=== PATIENT | female | born 1955 | race Caucasian/White ===

== ENCOUNTER 2016-12-05 15:56 | Inpatient (IN) | payer MEDICARE, OTHER ==
[~2016-12-05] VITALS: Ht 160 cm; Wt 110.8 kg
[~2016-12-05 15:56] MED LIST: ACET650T2 PO; ALDA25TA2 PO; ALLO100T PO; AMIT25TA PO; AMIT25TA2 PO; ASPI1TAB PO; BEANTAB2 PO; CALCTAB23 PO; CAPT62TA PO; CARV6.25 PO; CHLO4TAB2 PO; COLA100C3 PO; COSO1SOL2 OU; COSO1SOL3 OU; COSOPT OU; CRES20TA PO; CYCL10TA PO; DEMA100T; DICL500C; DICL500C PO; DRIS50002 PO; FERR325T OR; FERR325T3 PO; FISH1000; FISH1000 OR; FISH100049 PO; FURO1TAB15 PO; GEMF600T; GEMF600T PO; GLUC0.8I SC; GLUC1KIT SC; GLUC1VL SC; GLUC4CHW PO; HUMU500S SC; HUMUINJ SC; INSUDET SC; INSULANT; INSURSD SC; Iron; KEFL500C7 PO; KLOR1TAB77 PO; KLOR20PO12 PO; LATA5OPD OU; LOVA1CAP17 PO; LYRI75CA PO; MAGN250T9 PO; MAGN400T5 PO; MAGN500T2 PO; METO25TA PO; MULTIVIT; MYCOSTATIN TOP; NITR4TASL SL; NOVOLOG100 MG/ML; NYST100024 TOP; NYST10CR TOP; NYSTATIN OINT TOP; PAXI20TA PO; PAXI20TA3 PO; PAXI30TA11 PO; PERC5TAB6 PO; PERF50TA PO; POTA20TA PO; POTASSIUM OR; POTASSIUM PO; PRIL20CA; ROSU10TA2 PO; SENO8.6T10 PO; SIMV80TA PO; SPIR25TA2 PO; SPIR50TA2 PO; TORS20TA2 PO; TOUJ1.2I SC; TRAM50TA2 PO; ULTR50TA PO; VITAMIN D50000 UNT OR; VITMTA PO; VOLT1GEL24 TOP; XALANTAN; ZARO2.5T PO; ZYLO300T4 PO; [UNRECOGNIZED DRUG - REMARK] OU; mycostatin TOP
[2016-12-05] MEDS ORDERED: [UNRECOGNIZED DRUG - OTHER] SC (16:14)
[2016-12-05] MEDS ORDERED: NS 1,000 ML IV SCH (16:28)
[2016-12-05] MEDS ORDERED: ONDANSETRON 4MG/2ML VIAL (J2405) IV ONE (16:30)
[2016-12-05] MEDS ORDERED: NS 500 ML IV ONE ×2 (16:30→17:30)
[2016-12-05 17:17] LABS: ALBUMIN 3.3 GM/DL (3.2-5.2); ALBUMIN/GLOBULIN RATIO 0.72 (1.00-1.93); BILIRUBIN,DIRECT 0.1 MG/DL (0.0-0.2); BILIRUBIN,TOTAL 0.4 MG/DL (0.2-1.0); CALCIUM LEVEL 9.1 MG/DL (8.5-10.1); CREATININE FOR GFR 3.28 MG/DL (0.55-1.02); GLOMERULAR FILTRATION RATE 15.3 (>51); POTASSIUM SERUM 3.8 MEQ/L (3.5-5.1); TOTAL PROTEIN 7.9 GM/DL (6.4-8.2)
[2016-12-05 17:20] LABS: BASO % 0.3 % (0.0-1.0); EOS # 0.1 K/mm3 (0.0-0.50); EOS % 1.4 % (0.0-3.0); LARGE UNSTAINED CELL # 0.1 K/mm3 (0.0-0.4); LARGE UNSTAINED CELL % 1.5 % (0.0-4.0); LYMPH # 0.9 K/mm3 (1.5-4.5); LYMPH % 9.5 % (24.0-44.0); MEAN CORPUSCULAR HEMOGLOBIN 31.9 pg (27.0-33.0); MEAN CORPUSCULAR HGB CONC 34.2 g/dl (32.0-36.5); MEAN CORPUSCULAR VOLUME 93.3 fl (80.0-96.0); MONO # 0.5 K/mm3 (0.0-0.8); MONO % 5.7 % (0.0-5.0); NEUTROPHILS # 7.3 K/mm3 (1.8-7.7); NEUTROPHILS % 81.7 % (36.0-66.0); PLATELET COUNT, AUTOMATED 185 k/mm3 (150-450)
[2016-12-05] MEDS ORDERED: metroNIDAZOLE (FLAGYL) 500 MG TAB PO ONE (18:45)
[2016-12-05] MEDS ORDERED: POTA20TA PO (19:18)
[2016-12-05] MEDS ORDERED: TRES1INJ2 SC (19:18)
[2016-12-05] MEDS ORDERED: GLUCAGON FOR INJ 1 MG VIAL (J1610) SC PRN (20:30)
[2016-12-05] MEDS ORDERED: GLUCOSE 4 GM CHEW TABLET PO PRN (20:30)
[2016-12-05] MEDS ORDERED: DEXTROSE 50% 50 ML SYRINGE IV PRN (20:30)
[2016-12-05] MEDS: PERCOCET 5MG/325MG TAB PO PRN (20:30)
[2016-12-05] MEDS ORDERED: ONDANSETRON 4MG/2ML VIAL (J2405) IV PRN (20:30)
[2016-12-05] MEDS: NS 1,000 ML IV SCH (20:30)
[2016-12-05] MEDS ORDERED: ACETAMINOPHEN TAB 650MG DOSE (2X325MG) PO PRN (20:30)
[2016-12-05] MEDS ORDERED: LEVEMIR (INSULIN DETEMIR) 1 UNITS/0.01ML SC SCH (21:00)
[2016-12-05] MEDS: LATANOPROST 0.005% OPHTH SOLN 2.5 ML OU SCH (21:00)
[2016-12-05] MEDS ORDERED: HumaLOG INSULIN (NovoLOG) PER UNIT SC SCH (21:00)
[2016-12-05] MEDS: COSOPT OCUMETER PLUS 10ML (DORZOLAMIDE/TIMOLOL) OU SCH (21:00)
--- NOTE | 2016-12-05 22:32 | HPE ---
DATE OF ADMISSION: 12/05/2016 PRIMARY CARE PROVIDER: Dr. Lonnie Garnett RING CUTTER LATHE OPERATOR: Dr. Chapman Patient also sees [facility]. GARMENT MENDER: Dr. Quintanilla CHIEF COMPLAINT: Diarrhea. HISTORY OF PRESENT ILLNESS: This is a 61-year-old female patient with morbid obesity with underlying medical history of coronary artery disease with coronary artery bypass graft (CABG), osteomyelitis from sternotomy with debridement and methicillin-sensitive Staphylococcus aureus (MSSA) infection, obstructive sleep apnea, on continuous positive airway pressure (CPAP) at home, diabetes with diabetic retinopathy, diabetic neuropathy, diabetic nephropathy. Sees [facility]. Hypertension, congestive heart failure (CHF), chronic kidney disease (CKD), stage IV, secondary to diabetes, morbid obesity, depression, CHF with diastolic dysfunction, osteoporosis, lumbar disc disease, dyslipidemia, recent antibiotic use, presented since Friday with persistent watery diarrhea, more than 10 episodes a day, as well as poor oral intake. Denies any nausea or vomiting. Patient reported diarrhea was watery, was constantly running. Denies any chest pain, pressure, or discomfort. Denies any shortness of breath. Reported normal urination. In emergency patient was found to have Clostridium (C) difficile infection with mild elevation of creatinine. Subsequently patient was admitted for further treatment and intravenous (IV) fluids for hydration. ALLERGIES: No known drug allergies. PAST MEDICAL HISTORY: 1. Poorly controlled type 2 diabetes. 2. Morbid obesity. 3. Coronary artery disease with CABG. 4. History of osteomyelitis with MSSA infection. 5. Diabetic retinopathy. 6. Diabetic neuropathy. 7. Diabetic nephropathy. 8. CKD, stage IV. 9. Hypertension. 10. CHF with diastolic dysfunction, ejection fraction (EF) of 65%. 11. Chronic back pain with lumbar disc disease. 12. Dyslipidemia. PAST SURGICAL HISTORY: 1. CABG with multiple debridement of osteomyelitis of the sternum. 2. Cholecystectomy. 3. Partial sternotomy. 4. Colonoscopy. SOCIAL HISTORY: Former smoker. Has not smoked for 10 years. Denies alcohol drinking. FAMILY HISTORY: Denies having family history of coronary artery disease. REVIEW OF SYSTEMS: Reported persistent diarrhea. Other review of systems are negative. HOME MEDICATIONS: - acetaminophen 650 mg by mouth at bedtime - allopurinol 300 mg by mouth at bedtime - amitriptyline 25 mg by mouth at bedtime - aspirin 81 mg by mouth daily - calcium with vitamin D one tablet by mouth twice a day - Coreg 6.25 mg by mouth twice a day - chlorpheniramine 4 mg by mouth daily as needed - cyclobenzaprine 10 mg by mouth at bedtime - Colace 100 mg by mouth as needed - ferrous sulfate 325 mg by mouth twice a day - fish oil two capsules, 1000 mg by mouth twice a day - Glucagon subcutaneous for low glucose - U-500 via scale before meals, a total of 175 units - latanoprost at bedtime eyedrop - magnesium oxide 400 mg by mouth twice a day - metolazone 2.5 mg by mouth as needed for fluid retention - multivitamin one tablet by mouth daily - nitroglycerine sublingual 0.5 mg as needed - Paxil 50 mg by mouth at bedtime - potassium chloride 40 mEq by mouth daily - Lyrica 75 mg by mouth twice a day - Crestor 5 mg by mouth at bedtime - spironolactone 50 mg by mouth twice a day - torsemide 40 mg by mouth twice a day - Tresiba 70 units subcutaneous at bedtime - vitamin D 50,000 units by mouth monthly PHYSICAL EXAMINATION: VITAL SIGNS: Temperature 96.7, pulse 110, respirations 20, blood pressure 133/60, pulse oximetry 95% on room air. GENERAL: Patient morbidly obese, alert and oriented times three in no acute distress. HEENT: Normocephalic, atraumatic. PULMONARY: Bilaterally clear to auscultation. CARDIAC: Regular rate and rhythm. Normal S1, S2. ABDOMEN: Obese, soft, nontender. Positive bowel sounds. EXTREMITIES: Trace edema, bilateral lower extremities. LABORATORY DATA: WBC 9, hemoglobin and hematocrit 13.6/39.9, platelets 185. Chemistry: Sodium 134, potassium 3.8, chloride 95, bicarbonate 29, BUN 71, creatinine 3.28. ASSESSMENT AND PLAN: This is a 61-year-old female patient with underlying medical history of poorly controlled diabetes, morbid obesity with diabetes neuropathy, diabetic retinopathy, diabetic nephropathy, type 2 diabetes, insulin dependent. Sees [facility]. Chronic kidney disease (CKD), stage IV, coronary artery disease with coronary artery bypass graft (CABG), osteomyelitis, history of methicillin-sensitive Staphylococcus aureus (MSSA), depression, diastolic dysfunction, congestive heart failure (CHF), ejection fraction (EF) of 65%, chronic back pain with disc disease, dyslipidemia, presented with persistent diarrhea, dehydration due to Clostridium (C) difficile. 1. C. difficile colitis. IV fluid hydration, Bacid, vancomycin. Continue to monitor. Holding diuretic for now. 2. Dehydration with slightly worsening creatinine. Underlying CKD, stage IV, baseline creatinine 2.4 to 3 with diabetic nephropathy, holding diuretic torsemide for now. IV fluids, normal saline (NS) running at 100 mL per hour. Resume torsemide later once patient is euvolemic. Patient currently hypovolemic. Followup electrolytes. Followup BUN and creatinine. Consider nephrology consultation if kidney function does not improve. 3. Coronary artery disease. Continue aspirin, beta yeyo, spironolactone. Holding diuretics. Continue statin. 4. Hypertension. Continue current medication. Monitor blood pressure. 5. History of diastolic heart failure. Continue spironolactone. Strict intake and output. Daily weight. Holding diuretic given patient with persistent diarrhea. Is fairly dehydrated. IV fluids, strict intake and output. Monitor., restart diuretic as needed. Holding torsemide and metolazone. 6. Depression. Continue current medication. 7. Diabetes, type 2, poorly controlled. Given patient with poor by mouth intake and persistent diarrhea, will give the patient a lower dose insulin. Adjust as needed. Will switch the patient back to U-500 once patient's oral intake has improved Continue IV fluids for hydration. Sliding scale at adjusted level. 8. Diabetic retinopathy. Outpatient followup. Glucose controlled. 9. Morbid obesity, complicating care. 10. Deep vein thrombosis (DVT) prophylaxis. Heparin subcutaneous. DISPOSITION PLANNING: Pending clinical improvement. IV fluids for hydration.
[2016-12-05 23:00] VITALS: BP 173/65
[2016-12-05] MEDS: HEPARIN SOD (PORCINE) 5000 UNITS/ML VIAL SC SCH (23:14)
[2016-12-05] MEDS: HumaLOG INSULIN (NovoLOG) PER UNIT SC SCH (23:15)
[2016-12-05] MEDS: ALLOPURINOL 300 MG TAB PO SCH (23:16)
[2016-12-05] MEDS: VANCOMYCIN ORAL SOL 250MG/5ML ORAL SYRINGE PO SCH (23:16)
[2016-12-05] MEDS: CYCLOBENZAPRINE 10 MG TAB PO SCH (23:16)
[2016-12-05] MEDS: LEVEMIR (INSULIN DETEMIR) 1 UNITS/0.01ML SC SCH (23:16)
[2016-12-05] MEDS: MAGNESIUM OXIDE 400 MG TAB (MAG-OX) PO SCH (23:16)
[2016-12-05] MEDS: ROSUVASTATIN 10 MG TAB (CRESTOR) PO SCH (23:17)
[2016-12-05] MEDS: PARoxetine 10MG TABLET PO SCH (23:17)
[2016-12-05] MEDS: FERROUS SULFATE 325MG TAB PO SCH (23:17)
[2016-12-05] MEDS: PREGABALIN 75 MG CAP(LYRICA) PO SCH (23:17)
[2016-12-05] MEDS: CARVedilol 6.25 MG TAB PO SCH (23:18)
[2016-12-05] MEDS: PARoxetine 20 MG TAB PO SCH (23:18)
[2016-12-05] MEDS: SPIRONOLACTONE 50 MG TAB PO SCH (23:18)
[2016-12-05] MEDS: AMITRIPTYLINE 25 MG TAB PO SCH (23:18)
[2016-12-06 06:00] VITALS: BP 146/68
[2016-12-06] MEDS: VANCOMYCIN ORAL SOL 250MG/5ML ORAL SYRINGE PO SCH ×3 (06:06→17:18)
[2016-12-06] MEDS: HEPARIN SOD (PORCINE) 5000 UNITS/ML VIAL SC SCH ×3 (06:06→22:22)
[2016-12-06] MEDS ORDERED: HumaLOG INSULIN (NovoLOG) PER UNIT SC SCH (07:30)
[2016-12-06] MEDS: COSOPT OCUMETER PLUS 10ML (DORZOLAMIDE/TIMOLOL) OU SCH ×2 (08:09→22:24)
[2016-12-06] MEDS: MAGNESIUM OXIDE 400 MG TAB (MAG-OX) PO SCH ×2 (08:09→22:25)
[2016-12-06] MEDS: LACTOBACILLUS ACIDOPHILUS CAP (BACID) PO SCH ×3 (08:10→17:19)
[2016-12-06] MEDS: SPIRONOLACTONE 50 MG TAB PO SCH (08:10)
[2016-12-06] MEDS: FERROUS SULFATE 325MG TAB PO SCH ×2 (08:10→22:25)
[2016-12-06] MEDS: PREGABALIN 75 MG CAP(LYRICA) PO SCH ×2 (08:10→22:25)
[2016-12-06] MEDS: MULTIVITAMINS/MINERALS THERAP 1 TAB PO SCH (08:10)
[2016-12-06] MEDS: ASPIRIN 81 MG ENTERIC TAB PO SCH (08:10)
[2016-12-06] MEDS: CARVedilol 6.25 MG TAB PO SCH ×2 (08:10→22:26)
[2016-12-06] MEDS: HumaLOG INSULIN (NovoLOG) PER UNIT SC SCH ×4 (08:12→21:00)
[2016-12-06] MEDS: LEVEMIR (INSULIN DETEMIR) 1 UNITS/0.01ML SC SCH ×2 (08:12→22:24)
[2016-12-06] MEDS: NS 1,000 ML IV SCH ×2 (08:13→17:18)
[2016-12-06 08:42] LABS: MEAN CORPUSCULAR HEMOGLOBIN 31.3 pg (27.0-33.0); MEAN CORPUSCULAR HGB CONC 32.8 g/dl (32.0-36.5); MEAN CORPUSCULAR VOLUME 95.2 fl (80.0-96.0); RED CELL DISTRIBUTION WIDTH 15.3 % (11.5-14.5); WHITE BLOOD COUNT 6.8 K/mm3 (4.0-10.0)
[2016-12-06 09:02] LABS: ALBUMIN 2.8 GM/DL (3.2-5.2); ALBUMIN/GLOBULIN RATIO 0.78 (1.00-1.93); BILIRUBIN,TOTAL 0.3 MG/DL (0.2-1.0); CREATININE FOR GFR 2.94 MG/DL (0.55-1.02); GLOMERULAR FILTRATION RATE 17.4 (>51); POTASSIUM SERUM 3.7 MEQ/L (3.5-5.1); TOTAL PROTEIN 6.4 GM/DL (6.4-8.2)
--- NOTE | 2016-12-06 09:11 | IPNPDOC ---
Subjective Date Seen The patient was seen on 12/06/16. Subjective Chief Complaint/HPI The patient is a 61-year-old female admitted with a reason for visit of Clostridium Difficile Diarrhea. Events since last encounter Still with frequent watery stool. Already 2 - 3 times this am. Still with lower abd pain. Poor appetite this am. Constitutional: Denies: Chills, Fever Cardiovascular: Denies: Chest Pain, Palpitations Gastrointestinal: Reports: Abdominal Pain, Diarrhea, Denies: Nausea, Vomiting, Constipation Objective Physical Examination General Exam: Positive: Alert, No Acute Distress Chest Exam: Positive: Clear to auscultation Heart Exam: Positive: Rate Normal, Regular Rhythm Abdomen Exam: Positive: Soft, Tenderness (tender LLQ), Negative: Normal bowel sounds (decreased BS) Extremity Exam: Negative: Edema Assessment /Plan Problems (1) Clostridium difficile diarrhea Status: Acute Problem Text: severe C. Diff with dehydration, acute on chronic kidney failure in patient with stage IV kidney disease with hyperglycemia. Oral Vanco is justified in patient with severe C. Diff per CDC guidelines - script has been sent to pharmacy to attempt prior auth. Continue BACID and Percocet as needed for pain (2) Acute on chronic kidney failure Status: Acute Problem Text: Torsemide held. Stop Aldactone Continue IVF Recheck renal function this am Follows with Dr. Chapman for CKD stage IV - so consult renal if renal function does not improve (3) Dehydration Status: Acute Problem Text: see above regarding IVF (4) Diabetes mellitus type 2, uncontrolled Status: Chronic Response to Treatment: Worse Problem Text: Blood sugars in the 300s. Monitor trend with current insulin and adjust as needed (5) Obesity Status: Chronic Response to Treatment: Stable (6) CAD (coronary artery disease) Status: Chronic Response to Treatment: Stable (7) HARRISON (obstructive sleep apnea) Status: Chronic Response to Treatment: Stable (8) Chronic kidney disease, stage 4 (severe) Status: Chronic (9) Diastolic congestive heart failure Status: Chronic Response to Treatment: Worse Problem Text: see above Plan/VTE VTE Prophylaxis Ordered?: Yes (SQ heparin) VS, I&O, 24H, Fishbone Vital Signs/I&O Vital Signs Date Time Temp Pulse Resp B/P (MAP) Pulse Ox O2 Delivery O2 Flow Rate FiO2 12/06/16 08:22 Room Air 12/06/16 08:10 96 146/68 12/06/16 06:00 97.5 18 98 I&O- Last 24 Hours up to 6 AM 12/06/16 06:00 Intake Total 360 ml Output Total 0 ml Balance 360 ml Laboratory Data 24H LABS Laboratory Tests 2 12/05/16 16:45: White Blood Count 9.0, Red Blood Count 4.27, Hemoglobin 13.6, Hematocrit 39.9, Mean Corpuscular Volume 93.3, Mean Corpuscular Hemoglobin 31.9, Mean Corpuscular Hemoglobin Concent 34.2, Red Cell Distribution Width 15.0H, Platelet Count 185, Neutrophils (%) (Auto) 81.7H, Lymphocytes (%) (Auto) 9.5L, Monocytes (%) (Auto) 5.7H, Eosinophils (%) (Auto) 1.4, Basophils (%) (Auto) 0.3 , Neutrophils # (Auto) 7.3, Lymphocytes # (Auto) 0.9L, Monocytes # (Auto) 0.5, Eosinophils # (Auto) 0.1, Basophils # (Auto) 0.0, Large Unclassified Cells % 1.5 , Large Unclassified Cells # 0.1, Anion Gap 11, Glomerular Filtration Rate 15.3L , Calcium Level 9.1, Aspartate Amino Transf (AST/SGOT) 35, Alanine Aminotransferase (ALT/SGPT) 41, Alkaline Phosphatase 84, Total Bilirubin 0.4, Direct Bilirubin 0.1, Total Protein 7.9, Albumin 3.3, Albumin/Globulin Ratio 0.72L, Lipase 150 12/05/16 22:45: Bedside Glucose (Misc Panel) 282H 12/06/16 08:24: CBC/BMP Laboratory Tests 12/05/16 16:45 Red Blood Count 4.27, Mean Corpuscular Volume 93.3, Mean Corpuscular Hemoglobin 31.9, Mean Corpuscular Hemoglobin Concent 34.2, Red Cell Distribution Width 15.0 H, Neutrophils (%) (Auto) 81.7 H, Lymphocytes (%) (Auto) 9.5 L, Monocytes ( %) (Auto) 5.7 H, Eosinophils (%) (Auto) 1.4, Basophils (%) (Auto) 0.3, Neutrophils # (Auto) 7.3, Lymphocytes # (Auto) 0.9 L, Monocytes # (Auto) 0.5, Eosinophils # (Auto) 0.1, Basophils # (Auto) 0.0 12/06/16 08:24 Red Blood Count 3.81 L, Mean Corpuscular Volume 95.2, Mean Corpuscular Hemoglobin 31.3, Mean Corpuscular Hemoglobin Concent 32.8, Red Cell Distribution Width 15.3 H Microbiology Microbiology 12/05/16 Gastrointestinal Tract Panel (PCR) - Final, Complete Clostridium Difficile A/B GURMEET PRABHAKAR PA-C December 06, 2016 09:11
[2016-12-06 09:20] LABS: CALCIUM LEVEL 7.7 MG/DL (8.5-10.1)
[2016-12-06 14:00] VITALS: BP 155/70
[2016-12-06 22:00] VITALS: BP 122/55
[2016-12-06] MEDS: LATANOPROST 0.005% OPHTH SOLN 2.5 ML OU SCH (22:22)
[2016-12-06] MEDS: PARoxetine 10MG TABLET PO SCH (22:24)
[2016-12-06] MEDS: AMITRIPTYLINE 25 MG TAB PO SCH (22:25)
[2016-12-06] MEDS: PARoxetine 20 MG TAB PO SCH (22:25)
[2016-12-06] MEDS: ALLOPURINOL 300 MG TAB PO SCH (22:25)
[2016-12-06] MEDS: CYCLOBENZAPRINE 10 MG TAB PO SCH (22:26)
[2016-12-06] MEDS: ROSUVASTATIN 10 MG TAB (CRESTOR) PO SCH (22:27)
[2016-12-07] MEDS: VANCOMYCIN ORAL SOL 250MG/5ML ORAL SYRINGE PO SCH ×4 (00:21→18:07)
[2016-12-07] MEDS: NS 1,000 ML IV SCH (02:29)
[2016-12-07 06:00] VITALS: BP 121/56
[2016-12-07 06:34] LABS: MEAN CORPUSCULAR HEMOGLOBIN 30.7 pg (27.0-33.0); MEAN CORPUSCULAR HGB CONC 32.1 g/dl (32.0-36.5); MEAN CORPUSCULAR VOLUME 95.7 fl (80.0-96.0); WHITE BLOOD COUNT 9.8 K/mm3 (4.0-10.0)
[2016-12-07 06:44] LABS: ALBUMIN 2.5 GM/DL (3.2-5.2); ALBUMIN/GLOBULIN RATIO 0.63 (1.00-1.93); BILIRUBIN,TOTAL 0.3 MG/DL (0.2-1.0); CALCIUM LEVEL 7.7 MG/DL (8.5-10.1); CREATININE FOR GFR 2.84 MG/DL (0.55-1.02); GLOMERULAR FILTRATION RATE 18.1 (>51); POTASSIUM SERUM 3.4 MEQ/L (3.5-5.1); TOTAL PROTEIN 6.5 GM/DL (6.4-8.2)
[2016-12-07] MEDS: HEPARIN SOD (PORCINE) 5000 UNITS/ML VIAL SC SCH ×3 (06:48→21:31)
[2016-12-07] MEDS: HumaLOG INSULIN (NovoLOG) PER UNIT SC SCH ×5 (07:30→21:00)
[2016-12-07] MEDS: LEVEMIR (INSULIN DETEMIR) 1 UNITS/0.01ML SC SCH ×2 (09:40→21:00)
[2016-12-07] MEDS: PREGABALIN 75 MG CAP(LYRICA) PO SCH ×2 (09:41→21:45)
[2016-12-07] MEDS: MULTIVITAMINS/MINERALS THERAP 1 TAB PO SCH (09:41)
[2016-12-07] MEDS: CARVedilol 6.25 MG TAB PO SCH ×2 (09:41→21:56)
[2016-12-07] MEDS: FERROUS SULFATE 325MG TAB PO SCH ×2 (09:41→21:30)
[2016-12-07] MEDS: ASPIRIN 81 MG ENTERIC TAB PO SCH (09:41)
[2016-12-07] MEDS: LACTOBACILLUS ACIDOPHILUS CAP (BACID) PO SCH ×3 (09:41→18:08)
[2016-12-07] MEDS: MAGNESIUM OXIDE 400 MG TAB (MAG-OX) PO SCH ×2 (09:41→21:45)
[2016-12-07] MEDS: COSOPT OCUMETER PLUS 10ML (DORZOLAMIDE/TIMOLOL) OU SCH ×2 (09:42→21:30)
[2016-12-07] MEDS: PERCOCET 5MG/325MG TAB PO PRN ×3 (09:42→18:08)
--- NOTE | 2016-12-07 12:04 | IPN ---
DATE: 12/07/2016 Chelsey is seen on [facility], has C. difficile colitis with acute on chronic renal failure. She feels better. Some crampy abdominal pain but improved. No dizziness or lightheadedness. PHYSICAL EXAMINATION: 121/56, pulse of 83, afebrile. GENERAL APPEARANCE: Resting comfortably, visiting her . No jugular venous distention (JVD). Lungs clear. Heart regular rhythm. Abdomen is mildly distended. LABS: White count is 9.8, creatinine is down to 2.8, potassium 3.4. IMPRESSION: 1. C. difficile colitis. Continue oral vancomycin. Continue Bacid. Discussed C. difficile colitis with the patient an her . She should always take a probiotic now if she is prescribed antibiotics in the future to reduce the risk or recurrence. Also avoid proton pump inhibitor (PPI) agents. 2. Acute on chronic renal failure. Renal function is slowly improving. Diuretics are on hold. 3. Mild hypokalemia. Change IV fluid to potassium containing normal saline. 4. Diabetes. Blood sugar is managed with a basal insulin. 5. Diastolic congestive heart failure (CHF) off diuretics. Monitor closely while on IV fluids.
[2016-12-07] MEDS: KCL 20MEQ in NS 1000ML 1,000 ML IV SCH ×2 (13:32→21:34)
[2016-12-07] MEDS: ALLOPURINOL 300 MG TAB PO SCH (21:29)
[2016-12-07] MEDS: CYCLOBENZAPRINE 10 MG TAB PO SCH (21:29)
[2016-12-07] MEDS: LATANOPROST 0.005% OPHTH SOLN 2.5 ML OU SCH (21:30)
[2016-12-07] MEDS: AMITRIPTYLINE 25 MG TAB PO SCH (21:30)
[2016-12-07] MEDS: PARoxetine 10MG TABLET PO SCH (21:45)
[2016-12-07] MEDS: ROSUVASTATIN 10 MG TAB (CRESTOR) PO SCH (21:45)
[2016-12-07] MEDS: PARoxetine 20 MG TAB PO SCH (21:56)
[2016-12-07 22:00] VITALS: BP 143/65
[2016-12-08] MEDS: VANCOMYCIN ORAL SOL 250MG/5ML ORAL SYRINGE PO SCH ×5 (00:20→23:55)
[2016-12-08] MEDS: HEPARIN SOD (PORCINE) 5000 UNITS/ML VIAL SC SCH ×3 (05:38→22:35)
[2016-12-08 06:00] VITALS: BP 151/71
[2016-12-08 06:46] LABS: ALBUMIN 2.1 GM/DL (3.2-5.2); ALBUMIN/GLOBULIN RATIO 0.64 (1.00-1.93); BILIRUBIN,TOTAL 0.2 MG/DL (0.2-1.0); CALCIUM LEVEL 7.2 MG/DL (8.5-10.1); CREATININE FOR GFR 2.48 MG/DL (0.55-1.02); GLOMERULAR FILTRATION RATE 21.2 (>51); POTASSIUM SERUM 3.5 MEQ/L (3.5-5.1); TOTAL PROTEIN 5.4 GM/DL (6.4-8.2)
[2016-12-08] MEDS: ASPIRIN 81 MG ENTERIC TAB PO SCH (07:48)
[2016-12-08] MEDS: KCL 20MEQ in NS 1000ML 1,000 ML IV SCH (07:48)
[2016-12-08] MEDS: MULTIVITAMINS/MINERALS THERAP 1 TAB PO SCH (07:48)
[2016-12-08] MEDS: MAGNESIUM OXIDE 400 MG TAB (MAG-OX) PO SCH ×2 (07:48→22:31)
[2016-12-08] MEDS: FERROUS SULFATE 325MG TAB PO SCH ×2 (07:49→22:30)
[2016-12-08] MEDS: CARVedilol 6.25 MG TAB PO SCH ×2 (07:49→22:33)
[2016-12-08] MEDS: PREGABALIN 75 MG CAP(LYRICA) PO SCH ×2 (07:49→22:29)
[2016-12-08] MEDS: LACTOBACILLUS ACIDOPHILUS CAP (BACID) PO SCH ×3 (07:49→19:11)
[2016-12-08] MEDS: HumaLOG INSULIN (NovoLOG) PER UNIT SC SCH ×4 (07:50→21:00)
[2016-12-08] MEDS: LEVEMIR (INSULIN DETEMIR) 1 UNITS/0.01ML SC SCH ×2 (07:51→22:34)
[2016-12-08] MEDS: COSOPT OCUMETER PLUS 10ML (DORZOLAMIDE/TIMOLOL) OU SCH ×2 (07:52→22:34)
--- NOTE | 2016-12-08 10:37 | IPN ---
DATE OF SERVICE: 12/08/2016 Chelsey is a little more short of breath today. Her diuretics have been on hold while we rehydrated her for her prerenal azotemia secondary to diarrhea from Clostridium (C) difficile colitis. Been getting intravenous (IV) hydration with normal saline. She is a little dyspneic at rest. PHYSICAL EXAMINATION: 121/79, oxygen (O2) saturation 92% on room air, pulse of 95. GENERAL APPEARANCE: She is comfortable at rest. There is no jugular venous distention (JVD). Lungs have a few rales at the bases. Heart: regular rate and rhythm. Abdomen: Soft, nontender. 1+ peripheral edema. LABS: Creatinine is down to 2.48. Potassium is a little better at 3.5. IMPRESSION: 1. Clostridium (C) difficile colitis. Continue oral vancomycin. 2. Prerenal azotemia with acute on chronic renal failure. Renal function has improved but still not down to her baseline. Her baseline creatinine is around 2.1. Stopping her IV fluids but not restarting her diuretics yet. 3. History of diastolic congestive heart failure. As noted above, IV fluids are now being discontinued. I have asked her to have the nursing staff call me if her shortness of breath progresses, in which case I will restart diuretics today. 4. Diabetes. She is on basal insulin. 5. Hypokalemia. Oral potassium has been ordered.
[2016-12-08] MEDS: POTASSIUM CHLORIDE 10 MEQ SR TABLET PO SCH ×2 (13:00→22:30)
[2016-12-08 16:00] VITALS: BP 132/80
[2016-12-08 22:00] VITALS: BP 145/68
[2016-12-08] MEDS: ALLOPURINOL 300 MG TAB PO SCH (22:29)
[2016-12-08] MEDS: ROSUVASTATIN 10 MG TAB (CRESTOR) PO SCH (22:29)
[2016-12-08] MEDS: CYCLOBENZAPRINE 10 MG TAB PO SCH (22:30)
[2016-12-08] MEDS: AMITRIPTYLINE 25 MG TAB PO SCH (22:30)
[2016-12-08] MEDS: PARoxetine 10MG TABLET PO SCH (22:31)
[2016-12-08] MEDS: PARoxetine 20 MG TAB PO SCH (22:32)
[2016-12-08] MEDS: LATANOPROST 0.005% OPHTH SOLN 2.5 ML OU SCH (22:34)
[2016-12-09 06:00] VITALS: BP 132/65
[2016-12-09] MEDS: VANCOMYCIN ORAL SOL 250MG/5ML ORAL SYRINGE PO SCH ×4 (06:20→23:54)
[2016-12-09] MEDS: HEPARIN SOD (PORCINE) 5000 UNITS/ML VIAL SC SCH ×3 (06:20→20:55)
[2016-12-09 06:37] LABS: ALBUMIN 2.1 GM/DL (3.2-5.2); ALBUMIN/GLOBULIN RATIO 0.54 (1.00-1.93); BILIRUBIN,TOTAL 0.2 MG/DL (0.2-1.0); CALCIUM LEVEL 7.7 MG/DL (8.5-10.1); CREATININE FOR GFR 2.6 MG/DL (0.55-1.02); GLOMERULAR FILTRATION RATE 20.1 (>51); POTASSIUM SERUM 3.7 MEQ/L (3.5-5.1)
--- NOTE | 2016-12-09 08:08 | IPN ---
DATE: 12/09/2016 Chelsey was seen in [facility]. She thinks her diarrhea is finally improving. She had no stool incontinence overnight. She was less short of breath than yesterday. She is still not back on her diuretics yet, but she did not go into any heart failure yesterday while we were holding her diuretic. Blood pressure 132/65. Pulse 84. Respiratory rate 20. 96% oxygen saturation. General Appearance: She is resting comfortably sitting in her wheelchair. Lungs: Clear. Heart: Regular rhythm. Abdomen: Soft. Nontender. Nondistended. LABS: White count is 9.8. Hemoglobin stable at 11.2. BUN 50. Creatinine 2.6. IMPRESSION: 1. Clostridium difficile colitis. On oral vancomycin. Seems to be responding to this. Diarrhea is improved. She is also on Probiotic. She was cautioned to always take Probiotic with antibiotic therapy in the future. 2. Acute renal failure superimposed on chronic kidney disease. Creatinine has edged up a little bit today. I stopped her IV fluids yesterday because there was concern about going into heart failure. Her diuretics are still on hold. She says her urine is still quite concentrated. I am not restarting her diuretics yet. 3. History of diastolic heart failure. Diuretics are on hold. These should be restarted before discharge. 4. Diabetes. She is on 35 units of Levemir twice daily and a sliding scale. Blood sugars are in the 100s now. She might be able to go home tomorrow or the next day depending on how her renal function goes. It would be nice to restart her diuretics before discharge to see how she does on those before discharge. I think it is too early to restart them today.
[2016-12-09] MEDS: LACTOBACILLUS ACIDOPHILUS CAP (BACID) PO SCH ×3 (08:20→17:21)
[2016-12-09] MEDS: ASPIRIN 81 MG ENTERIC TAB PO SCH (08:20)
[2016-12-09] MEDS: MULTIVITAMINS/MINERALS THERAP 1 TAB PO SCH (08:21)
[2016-12-09] MEDS: POTASSIUM CHLORIDE 10 MEQ SR TABLET PO SCH ×2 (08:21→20:55)
[2016-12-09] MEDS: FERROUS SULFATE 325MG TAB PO SCH ×2 (08:21→20:56)
[2016-12-09] MEDS: CARVedilol 6.25 MG TAB PO SCH ×2 (08:21→20:57)
[2016-12-09] MEDS: MAGNESIUM OXIDE 400 MG TAB (MAG-OX) PO SCH ×2 (08:22→20:56)
[2016-12-09] MEDS: PREGABALIN 75 MG CAP(LYRICA) PO SCH ×2 (08:22→20:55)
[2016-12-09] MEDS: HumaLOG INSULIN (NovoLOG) PER UNIT SC SCH ×4 (08:23→20:57)
[2016-12-09] MEDS: COSOPT OCUMETER PLUS 10ML (DORZOLAMIDE/TIMOLOL) OU SCH ×2 (08:24→20:58)
[2016-12-09] MEDS: LEVEMIR (INSULIN DETEMIR) 1 UNITS/0.01ML SC SCH ×2 (08:24→20:58)
[2016-12-09 14:00] VITALS: BP 161/71
[2016-12-09] MEDS: PARoxetine 10MG TABLET PO SCH (20:55)
[2016-12-09] MEDS: CYCLOBENZAPRINE 10 MG TAB PO SCH (20:56)
[2016-12-09] MEDS: ALLOPURINOL 300 MG TAB PO SCH (20:56)
[2016-12-09] MEDS: PARoxetine 20 MG TAB PO SCH (20:56)
[2016-12-09] MEDS: ROSUVASTATIN 10 MG TAB (CRESTOR) PO SCH (20:56)
[2016-12-09] MEDS: AMITRIPTYLINE 25 MG TAB PO SCH (20:57)
[2016-12-09] MEDS: LATANOPROST 0.005% OPHTH SOLN 2.5 ML OU SCH (20:59)
[2016-12-09 22:00] VITALS: BP 128/64
[2016-12-10] MEDS: HEPARIN SOD (PORCINE) 5000 UNITS/ML VIAL SC SCH ×3 (05:32→21:43)
[2016-12-10] MEDS: VANCOMYCIN ORAL SOL 250MG/5ML ORAL SYRINGE PO SCH ×3 (05:32→17:37)
[2016-12-10 06:00] VITALS: BP 124/68
[2016-12-10] MEDS: POTASSIUM CHLORIDE 10 MEQ SR TABLET PO SCH ×2 (08:14→21:44)
[2016-12-10] MEDS: LACTOBACILLUS ACIDOPHILUS CAP (BACID) PO SCH ×3 (08:14→17:37)
[2016-12-10] MEDS: MAGNESIUM OXIDE 400 MG TAB (MAG-OX) PO SCH ×2 (08:14→21:46)
[2016-12-10] MEDS: FERROUS SULFATE 325MG TAB PO SCH ×2 (08:15→21:45)
[2016-12-10] MEDS: ASPIRIN 81 MG ENTERIC TAB PO SCH (08:15)
[2016-12-10] MEDS: CARVedilol 6.25 MG TAB PO SCH ×2 (08:15→21:45)
[2016-12-10] MEDS: PREGABALIN 75 MG CAP(LYRICA) PO SCH ×2 (08:15→21:45)
[2016-12-10] MEDS: MULTIVITAMINS/MINERALS THERAP 1 TAB PO SCH (08:15)
[2016-12-10] MEDS: HumaLOG INSULIN (NovoLOG) PER UNIT SC SCH ×4 (08:16→21:00)
[2016-12-10] MEDS: LEVEMIR (INSULIN DETEMIR) 1 UNITS/0.01ML SC SCH ×2 (08:17→21:43)
[2016-12-10] MEDS: COSOPT OCUMETER PLUS 10ML (DORZOLAMIDE/TIMOLOL) OU SCH ×2 (08:17→21:47)
[2016-12-10 08:20] LABS: BASO % 0.7 % (0.0-1.0); EOS # 0.2 K/mm3 (0.0-0.50); EOS % 2.3 % (0.0-3.0); LARGE UNSTAINED CELL # 0.2 K/mm3 (0.0-0.4); LARGE UNSTAINED CELL % 2.3 % (0.0-4.0); LYMPH # 2.1 K/mm3 (1.5-4.5); LYMPH % 27.3 % (24.0-44.0); MEAN CORPUSCULAR HGB CONC 32.4 g/dl (32.0-36.5); MEAN CORPUSCULAR VOLUME 95.5 fl (80.0-96.0); MONO # 0.4 K/mm3 (0.0-0.8); MONO % 5.8 % (0.0-5.0); NEUTROPHILS # 4.3 K/mm3 (1.8-7.7); NEUTROPHILS % 61.7 % (36.0-66.0); PLATELET COUNT, AUTOMATED 193 k/mm3 (150-450); RED CELL DISTRIBUTION WIDTH 15.5 % (11.5-14.5)
[2016-12-10 08:55] LABS: ALBUMIN 2.4 GM/DL (3.2-5.2); ALBUMIN/GLOBULIN RATIO 0.73 (1.00-1.93); BILIRUBIN,TOTAL 0.3 MG/DL (0.2-1.0); CALCIUM LEVEL 7.4 MG/DL (8.5-10.1); CREATININE FOR GFR 2.28 MG/DL (0.55-1.02); GLOMERULAR FILTRATION RATE 23.3 (>51); POTASSIUM SERUM 4.9 MEQ/L (3.5-5.1); TOTAL PROTEIN 5.7 GM/DL (6.4-8.2)
--- NOTE | 2016-12-10 09:56 | IPNPDOC ---
Subjective Date Seen The patient was seen on 12/10/16. Subjective Chief Complaint/HPI The patient is a 61-year-old female admitted with a reason for visit of Clostridium Difficile Diarrhea. Events since last encounter Pt this morning reports that she cont to have improvement in her breathing. She also had a soft, formed BM this morning. General: Denies: Fatigue Constitutional: Denies: Chills, Fever Pulmonary: Denies: Dyspnea, Cough Cardiovascular: Denies: Chest Pain, Palpitations Gastrointestinal: Denies: Nausea, Vomiting, Diarrhea Neurological: Denies: Weakness Psych: Reports: Mood Normal Objective Physical Examination General Exam: Positive: Alert, No Acute Distress ENT Exam: Positive: Mucous membr. moist/pink Chest Exam: Positive: Clear to auscultation, Diminished Heart Exam: Positive: Rate Normal, Regular Rhythm Abdomen Exam: Positive: Normal bowel sounds, Soft, Negative: Tenderness Extremity Exam: Negative: Edema Assessment /Plan Problems (1) Clostridium difficile diarrhea Status: Acute Problem Text: Vanco 250 mg q6h d/t severity of symptoms on admission, she is responding well. She is on Bacid and has been counseled on its use and use in the future when on Abx. The med has been sent to the pharm and her OOP expense is affordable for her. (2) Acute on chronic kidney failure Status: Acute Problem Text: Renal function has improved to baseline 2.2, will resume diuretic today and monitor her RF, if it remains stable, plan for D/c in the morning. (3) Dehydration Status: Resolved (4) Diabetes mellitus type 2, uncontrolled Status: Chronic Response to Treatment: Worse Problem Text: Con levemir, SSI. (5) Obesity Status: Chronic Response to Treatment: Stable (6) CAD (coronary artery disease) Status: Chronic Response to Treatment: Stable (7) HARRISON (obstructive sleep apnea) Status: Chronic Response to Treatment: Stable (8) Chronic kidney disease, stage 4 (severe) Status: Chronic (9) Diastolic congestive heart failure Status: Chronic Response to Treatment: Worse Problem Text: see above Plan/VTE VTE Prophylaxis Ordered?: Yes (SQ heparin) VS, I&O, 24H, Fishbone Vital Signs/I&O Vital Signs Date Time Temp Pulse Resp B/P (MAP) Pulse Ox O2 Delivery O2 Flow Rate FiO2 12/10/16 08:15 77 124/68 12/10/16 07:28 Nasal Cannula 2.0 12/10/16 07:26 94 12/10/16 06:00 98.6 15 I&O- Last 24 Hours up to 6 AM 12/10/16 06:00 Intake Total 1080 ml Balance 1080 ml Laboratory Data 24H LABS Laboratory Tests 2 12/09/16 12:00: Bedside Glucose (Misc Panel) 105 12/09/16 16:47: Bedside Glucose (Misc Panel) 135H 12/09/16 19:50: Bedside Glucose (Misc Panel) 164H 12/10/16 05:29: Bedside Glucose (Misc Panel) 183H 12/10/16 08:04: White Blood Count 7.0, Red Blood Count 3.38L, Hemoglobin 10.5L, Hematocrit 32.2L , Mean Corpuscular Volume 95.5, Mean Corpuscular Hemoglobin 31.0, Mean Corpuscular Hemoglobin Concent 32.4, Red Cell Distribution Width 15.5H, Platelet Count 193, Neutrophils (%) (Auto) 61.7, Lymphocytes (%) (Auto) 27.3, Monocytes (%) (Auto) 5.8H, Eosinophils (%) (Auto) 2.3, Basophils (%) (Auto) 0.7 , Neutrophils # (Auto) 4.3, Lymphocytes # (Auto) 2.1, Monocytes # (Auto) 0.4, Eosinophils # (Auto) 0.2, Basophils # (Auto) 0.0, Large Unclassified Cells % 2.3 , Large Unclassified Cells # 0.2, Anion Gap 7L, Glomerular Filtration Rate 23.3L , Blood Urea Nitrogen 46H, Creatinine 2.28H, Sodium Level 142, Potassium Level 4.9#, Chloride Level 114H, Carbon Dioxide Level 21, Calcium Level 7.4L, Aspartate Amino Transf (AST/SGOT) 38H, Alanine Aminotransferase (ALT/SGPT) 39, Alkaline Phosphatase 121H, Total Bilirubin 0.3, Total Protein 5.7L, Albumin 2.4L , Albumin/Globulin Ratio 0.73L CBC/BMP Laboratory Tests 12/10/16 08:04 Red Blood Count 3.38 L, Mean Corpuscular Volume 95.5, Mean Corpuscular Hemoglobin 31.0, Mean Corpuscular Hemoglobin Concent 32.4, Red Cell Distribution Width 15.5 H, Neutrophils (%) (Auto) 61.7, Lymphocytes (%) (Auto) 27.3, Monocytes (%) (Auto) 5.8 H, Eosinophils (%) (Auto) 2.3, Basophils (%) ( Auto) 0.7, Neutrophils # (Auto) 4.3, Lymphocytes # (Auto) 2.1, Monocytes # (Auto ) 0.4, Eosinophils # (Auto) 0.2, Basophils # (Auto) 0.0, Calcium Level 7.4 L, Aspartate Amino Transf (AST/SGOT) 38 H, Alanine Aminotransferase (ALT/SGPT) 39, Alkaline Phosphatase 121 H, Total Bilirubin 0.3, Total Protein 5.7 L, Albumin 2.4 L Microbiology Microbiology 12/05/16 Gastrointestinal Tract Panel (PCR) - Final, Complete Clostridium Difficile A/B JANET VARGAS PA-C December 10, 2016 09:56 Caesar Gómez M.D. December 10, 2016 16:03
[2016-12-10] MEDS: TORSEMIDE 20 MG TAB PO SCH ×2 (11:03→17:37)
[2016-12-10 14:00] VITALS: BP 125/60
[2016-12-10] MEDS: PARoxetine 10MG TABLET PO SCH (21:44)
[2016-12-10] MEDS: PARoxetine 20 MG TAB PO SCH (21:44)
[2016-12-10] MEDS: ALLOPURINOL 300 MG TAB PO SCH (21:46)
[2016-12-10] MEDS: ROSUVASTATIN 10 MG TAB (CRESTOR) PO SCH (21:46)
[2016-12-10] MEDS: CYCLOBENZAPRINE 10 MG TAB PO SCH (21:46)
[2016-12-10] MEDS: AMITRIPTYLINE 25 MG TAB PO SCH (21:46)
[2016-12-10] MEDS: LATANOPROST 0.005% OPHTH SOLN 2.5 ML OU SCH (21:47)
[2016-12-10 22:00] VITALS: BP 142/64
[2016-12-11] MEDS: VANCOMYCIN ORAL SOL 250MG/5ML ORAL SYRINGE PO SCH ×3 (00:59→12:25)
[2016-12-11] MEDS: HEPARIN SOD (PORCINE) 5000 UNITS/ML VIAL SC SCH (06:43)
[2016-12-11] MEDS ORDERED: FIRS1SOL3 PO (07:15)
[2016-12-11] MEDS ORDERED: RISATAB3 PO (07:15)
[2016-12-11] MEDS: HumaLOG INSULIN (NovoLOG) PER UNIT SC SCH ×2 (07:30→12:25)
[2016-12-11] MEDS: MULTIVITAMINS/MINERALS THERAP 1 TAB PO SCH (08:36)
[2016-12-11 08:37] LABS: MEAN CORPUSCULAR HEMOGLOBIN 30.8 pg (27.0-33.0); MEAN CORPUSCULAR HGB CONC 31.7 g/dl (32.0-36.5); PLATELET COUNT, AUTOMATED 248 k/mm3 (150-450); RED CELL DISTRIBUTION WIDTH 15.4 % (11.5-14.5); WHITE BLOOD COUNT 8.6 K/mm3 (4.0-10.0)
[2016-12-11] MEDS: FERROUS SULFATE 325MG TAB PO SCH (08:37)
[2016-12-11] MEDS: POTASSIUM CHLORIDE 10 MEQ SR TABLET PO SCH (08:37)
[2016-12-11] MEDS: TORSEMIDE 20 MG TAB PO SCH (08:37)
[2016-12-11 08:38] VITALS: BP 142/64
[2016-12-11 08:38] LABS: CALCIUM LEVEL 7.9 MG/DL (8.5-10.1); CREATININE FOR GFR 2.47 MG/DL (0.55-1.02); GLOMERULAR FILTRATION RATE 21.3 (>51)
[2016-12-11] MEDS: CARVedilol 6.25 MG TAB PO SCH (08:38)
[2016-12-11] MEDS: LACTOBACILLUS ACIDOPHILUS CAP (BACID) PO SCH ×2 (08:38→12:25)
[2016-12-11] MEDS: ASPIRIN 81 MG ENTERIC TAB PO SCH (08:38)
[2016-12-11] MEDS: LEVEMIR (INSULIN DETEMIR) 1 UNITS/0.01ML SC SCH (08:40)
[2016-12-11] MEDS: MAGNESIUM OXIDE 400 MG TAB (MAG-OX) PO SCH (08:40)
[2016-12-11] MEDS: PREGABALIN 75 MG CAP(LYRICA) PO SCH (08:41)
[2016-12-11] MEDS: COSOPT OCUMETER PLUS 10ML (DORZOLAMIDE/TIMOLOL) OU SCH (08:42)
[2016-12-11 08:45] LABS: POTASSIUM SERUM 5.3 MEQ/L (3.5-5.1)
[2016-12-11 09:14] LABS: ANISOCYTOSIS 1+; BANDS 8 % (< 11); BASOPHILS 1 % (0-4); EOSINOPHILS 4 % (0-5)
--- NOTE | 2016-12-11 09:21 | DSES ---
DATE OF ADMISSION: 12/05/2016 DATE OF DISCHARGE: 12/11/2016 ATTENDING PHYSICIAN: Dr. Saniya Cline PRIMARY CARE PROVIDER: Dr. Lonnie Garnett HISTORY OF PRESENT ILLNESS: A 61-year-old female with past medical history significant for morbid obesity, coronary artery disease, osteomyelitis from sternotomy with debridement and prior methicillin-resistant Staphylococcus aureus (MRSA) infection, obstructive sleep apnea, diabetes with retinopathy, neuropathy and nephropathy, hypertension, congestive heart failure, chronic kidney disease stage IV, depression, congestive heart failure (CHF), osteoporosis, lumbar disc disease, dyslipidemia and recent antibiotic use who presented with persistent watery diarrhea for more than 10 episodes per day. The patient also admitted to poor oral intake. Workup in the emergency department (ED) proved the patient to be positive for Clostridium (C) difficile. HOSPITAL COURSE: The patient was resuscitated with IV fluids, placed on Bacid, and vancomycin by mouth. The patient's diuretic was held secondary to slightly worsening creatinine of 3.28 on admission. Creatinine has continued to slowly improve. It has returned to baseline. The patient did resume her diuretic as of yesterday and is tolerating that well. The patient is down to 2-3 stools per day. Denies abdominal pain. Denies nausea or vomiting. Denies chest pain, shortness of breath, blurred vision, or dizziness and anticipates discharge home today. PHYSICAL EXAMINATION: On physical examination, blood pressure is stable at 142/64, oxygen saturation is 99% on room air, heart rate is 80 and regular, temperature is 97.1. HEENT: Neck is supple without lymphadenopathy or jugular venous distention (JVD) . CARDIOVASCULAR: Heart rate and rhythm are regular. PULMONARY: Lungs are clear. ABDOMEN: Soft and nontender. However, it is difficult to assess secondary to body habitus. Bilateral lower extremities are without any edema. NEUROLOGIC: The patient is alert and oriented times three. There is no resting tremor appreciated. PSYCHIATRIC: Affect is flat yet patient maintains eye contact. Conversation is appropriate and congruent. ASSESSMENT: 1. Clostridium (C) difficile. 2. Diabetes with neuropathy, nephropathy and retinopathy. 3. Coronary artery disease. 4. Hypertension. 5. History of diastolic heart failure. 6. Depression. 7. Morbid obesity. 8. Hypertension. 9. Depression. 10. Chronic kidney disease, stage IV. PLAN: The patient will be discharged home. Diet is two-gram sodium, carbohydrate-consistent, renal diet. Activity is as tolerated. The patient uses an at-home power scooter for most of her mobility needs. Followup with primary care provider (PCP) within the next seven days. DISCHARGE MEDICATIONS: - vancomycin 50 mg per mL solution 250 mg by mouth six hours for the next 10 days - probiotic one daily with meals - Tylenol 650 mg two by mouth every eight hours - allopurinol 300 mg by mouth at bedtime - amitriptyline 25 mg by mouth at bedtime - aspirin 81 mg by mouth daily - calcium with vitamin D one by mouth twice a day - carvedilol 6.25 mg by mouth twice a day - chlorpheniramine maleate 4 mg by mouth daily as needed for allergies - cyclobenzaprine 10 mg by mouth at bedtime - Colace 100 mg by mouth as needed for constipation, this will be held while the patient has diarrhea - Cosopt eye drops one drop in each eye twice a day - ferrous sulfate 325 mg tablet by mouth twice a day - fish oil two capsules by mouth twice a day - glucagon as needed for low blood sugar - glucose chewable tablets by mouth as needed for low blood sugar - Humulin KwikPen 500 units per mL one dose subcutaneous before meals per recommendations from [facility] - Latanoprost 50 one drop in each eye at bedtime - magnesium oxide 400 mg by mouth twice a day - metolazone 2.5 mg tablet by mouth daily as needed for fluid retention - multivitamin one tablet daily - nitroglycerin 0.4 mg sublingual as needed for chest pain every five minutes times three maximum dose - paroxetine 20 mg by mouth at bedtime - paroxetine 30 mg by mouth at bedtime - potassium chloride 20 mEq tablet two by mouth daily - Lyrica 75 mg by mouth twice a day - Crestor 10 mg tablet she is to take half a tablet at bedtime - spironolactone 50 mg by mouth twice a day - torsemide 20 mg tablet two by mouth twice a day - Tresiba FlexTouch 70 units subcutaneous at bedtime - vitamin D 50,000 international units by mouth monthly The patient is discharged in stable and satisfactory condition with no further questions at the time of discharge. Addendum: Patient's potassium was elevated to 5.3 on day of admission; this was likely due to her receiving increased potassium dose of 40 mEq BID while admitted because her potassium was initially low upon admission, likely due to her initial diarrhea. I asked her to hold potassium on day after admission and gave her an order to have a BMP rechecked 2 days after admission - if potassium has normalized, I will plan to restart her home potassium dose as above. (STEPHANIE) MTDD
[2016-12-11 14:00] VITALS: BP 130/60
[2016-12-26] MEDS ORDERED: VITAMIN D 50,000 UNITS CAPSULE (ERGOCALCIFEROL 1.25MG) PO SCH (09:00)
== END 2016-12-11 15:15 | disposition home or self-care (01) | DRG 372 ==
LOC: M ED 17:49 → M ED INP 20:24 → M MS5PR 22:25
PROVIDERS: ADMIT Hospitalist; ATTEND Family Medicine
DX: A04.7 Enterocolitis due to Clostridium difficile (principal); N18.4 Chronic kidney disease, stage 4 (severe); I50.32 Chronic diastolic (congestive) heart failure; Z68.41 Body mass index [BMI] 40.0-44.9, adult; N17.9 Acute kidney failure, unspecified; I13.0 Hypertensive heart and chronic kidney disease with heart failure and stage 1 through stage 4 chronic kidney disease, or unspecified chronic kidney disease; E86.0 Dehydration; G47.33 Obstructive sleep apnea (adult) (pediatric); E66.01 Morbid (severe) obesity due to excess calories; E11.40 Type 2 diabetes mellitus with diabetic neuropathy, unspecified; E11.21 Type 2 diabetes mellitus with diabetic nephropathy; E11.319 Type 2 diabetes mellitus with unspecified diabetic retinopathy without macular edema; E87.6 Hypokalemia; I25.10 Atherosclerotic heart disease of native coronary artery without angina pectoris; F32.9 Major depressive disorder, single episode, unspecified; Z79.82 Long term (current) use of aspirin; Z79.4 Long term (current) use of insulin; Z79.899 Other long term (current) drug therapy; Z95.5 Presence of coronary angioplasty implant and graft; Z99.89 Dependence on other enabling machines and devices; Z90.49 Acquired absence of other specified parts of digestive tract; Z87.891 Personal history of nicotine dependence

== ENCOUNTER 2017-01-20 05:18 | Emergency (ER) | payer MEDICARE ==
[~2017-01-20] VITALS: Ht 160 cm; Wt 110.5 kg
[~2017-01-20 05:18] MED LIST changes: -ACET650T2 PO; +ACET650T3 PO; +CALC1TAB60 PO; -CALCTAB23 PO; -CHLO4TAB2 PO; +CHLO4TAB27 PO; -COLA100C3 PO; +COLA100C5 PO; +FIRS1SOL3 PO; -FURO1TAB15 PO; +FURO80TA2 PO; +KEFL500C17 PO; -KEFL500C7 PO; -NYST100024 TOP; +NYST1POW9 TOP; +PAXI20TA29 PO; -PAXI20TA3 PO; +PERC5TAB12 PO; -PERC5TAB6 PO; +RISATAB3 PO; +TRES1INJ2 SC; -ULTR50TA PO; +ULTR50TA8 PO; +VOLT1GEL15 TOP; -VOLT1GEL24 TOP; +[UNRECOGNIZED DRUG - OTHER] SC
[2017-01-20] MEDS ORDERED: NS 1,000 ML IV SCH (06:08)
[2017-01-20] MEDS ORDERED: ONDANSETRON 4MG/2ML VIAL (J2405) IV ONE (06:15)
[2017-01-20 07:06] LABS: BASO % 0.6 % (0.0-1.0); EOS # 0.3 K/mm3 (0.0-0.50); EOS % 3.1 % (0.0-3.0); LARGE UNSTAINED CELL # 0.2 K/mm3 (0.0-0.4); LARGE UNSTAINED CELL % 2.7 % (0.0-4.0); LYMPH # 1.9 K/mm3 (1.5-4.5); LYMPH % 19.6 % (24.0-44.0); MEAN CORPUSCULAR HEMOGLOBIN 31.4 pg (27.0-33.0); MEAN CORPUSCULAR HGB CONC 33.2 g/dl (32.0-36.5); MEAN CORPUSCULAR VOLUME 94.6 fl (80.0-96.0); MONO # 0.7 K/mm3 (0.0-0.8); MONO % 8.6 % (0.0-5.0); NEUTROPHILS # 5.5 K/mm3 (1.8-7.7); NEUTROPHILS % 65.4 % (36.0-66.0); PLATELET COUNT, AUTOMATED 209 k/mm3 (150-450); RED CELL DISTRIBUTION WIDTH 15.7 % (11.5-14.5); WHITE BLOOD COUNT 8.4 K/mm3 (4.0-10.0)
[2017-01-20 07:23] LABS: ALBUMIN/GLOBULIN RATIO 0.65 (1.00-1.93); ALKALINE PHOSPHATASE 104 U/L (45-117); ALT/SGPT 34 U/L (12-78); ANION GAP 12 MEQ/L (8-16); AST/SGOT 32 U/L (15-37); BILIRUBIN,DIRECT < 0.1 MG/DL (0.0-0.2); BILIRUBIN,TOTAL 0.4 MG/DL (0.2-1.0); BLOOD UREA NITROGEN 62 MG/DL (7-18); CALCIUM LEVEL 7.9 MG/DL (8.5-10.1); CARBON DIOXIDE LEVEL 21 MEQ/L (21-32); CHLORIDE LEVEL 97 MEQ/L (98-107); CREATININE FOR GFR 3.73 MG/DL (0.55-1.02); GLOMERULAR FILTRATION RATE 13.2 (>51); GLUCOSE, FASTING 329 MG/DL (70-105); POTASSIUM SERUM 3.1 MEQ/L (3.5-5.1); SODIUM LEVEL 130 MEQ/L (136-145); TOTAL PROTEIN 7.6 GM/DL (6.4-8.2)
[2017-01-20] MEDS ORDERED: POTASSIUM CHLORIDE 10 MEQ SR TABLET PO ONE (08:00)
[2017-01-20] MEDS ORDERED: ZOFR4TAB3 PO (08:21)
[2017-01-20 08:27] VITALS: BP 173/70
--- NOTE | 2017-01-20 08:48 | REP ---
ABDOMINAL SERIES: Cross table lateral and supine films of the abdomen and pelvis demonstrate no evidence of free intraperitoneal air and no evidence for bowel obstruction. There are mild degenerative changes of the spine and hips. An accompanying view of the chest demonstrates no acute infiltrate. Cardiomediastinal is unremarkable. IMPRESSION: Essentially negative abdominal series. Signed by Cipriano Luke MD 01/20/2017 05:06 P
== END 2017-01-20 08:47 | disposition home or self-care (01) ==
LOC: M ED 05:18
DX: E86.0 Dehydration (principal); R19.7 Diarrhea, unspecified; E11.9 Type 2 diabetes mellitus without complications; I10 Essential (primary) hypertension; J45.909 Unspecified asthma, uncomplicated; I25.9 Chronic ischemic heart disease, unspecified; Z95.1 Presence of aortocoronary bypass graft; Z79.899 Other long term (current) drug therapy; Z79.82 Long term (current) use of aspirin; Z79.4 Long term (current) use of insulin; Z79.02 Long term (current) use of antithrombotics/antiplatelets; Z87.891 Personal history of nicotine dependence
CPT/HCPCS: 74022; 80048; 80076; 83690; 85025; 87493; 96361; 96374; 99283; J2405

== ENCOUNTER 2017-04-01 14:05 | Inpatient (IN) | payer MEDICARE ==
[~2017-04-01] VITALS: Ht 160 cm; Wt 104.1 kg
[~2017-04-01 14:05] MED LIST changes: +ZOFR4TAB3 PO
[2017-04-01] MEDS ORDERED: NS 1,000 ML IV ONE (15:30)
[2017-04-01 16:14] LABS: BASO # 0.1 K/mm3 (0.0-0.2); BASO % 0.6 % (0.0-1.0); EOS # 0.2 K/mm3 (0.0-0.50); EOS % 1.5 % (0.0-3.0); LARGE UNSTAINED CELL # 0.1 K/mm3 (0.0-0.4); LARGE UNSTAINED CELL % 1.1 % (0.0-4.0); LYMPH # 1.7 K/mm3 (1.5-4.5); LYMPH % 12.1 % (24.0-44.0); MEAN CORPUSCULAR HEMOGLOBIN 29.9 pg (27.0-33.0); MEAN CORPUSCULAR HGB CONC 31.1 g/dl (32.0-36.5); MEAN CORPUSCULAR VOLUME 96.1 fl (80.0-96.0); MONO # 0.3 K/mm3 (0.0-0.8); MONO % 2.4 % (0.0-5.0); NEUTROPHILS # 10.8 K/mm3 (1.8-7.7); NEUTROPHILS % 82.4 % (36.0-66.0); PLATELET COUNT, AUTOMATED 240 k/mm3 (150-450); WHITE BLOOD COUNT 13.2 K/mm3 (4.0-10.0)
[2017-04-01 16:19] LABS: ADD MORPHOLOGY? NO
[2017-04-01 16:40] LABS: ALBUMIN 2.9 GM/DL (3.2-5.2); ALBUMIN/GLOBULIN RATIO 0.71 (1.00-1.93); ALKALINE PHOSPHATASE 133 U/L (45-117); ALT/SGPT 23 U/L (12-78); ANION GAP 15 MEQ/L (8-16); AST/SGOT 11 U/L (15-37); BILIRUBIN,TOTAL 0.3 MG/DL (0.2-1.0); BLOOD UREA NITROGEN 86 MG/DL (7-18); CALCIUM LEVEL 8.5 MG/DL (8.5-10.1); CARBON DIOXIDE LEVEL 23 MEQ/L (21-32); CHLORIDE LEVEL 84 MEQ/L (98-107); CREATININE FOR GFR 5.16 MG/DL (0.55-1.02); GLOMERULAR FILTRATION RATE 9.1 (>51); POTASSIUM SERUM 3.5 MEQ/L (3.5-5.1); SODIUM LEVEL 122 MEQ/L (136-145)
[2017-04-01 16:45] LABS: GLUCOSE, FASTING 811 MG/DL (70-105)
[2017-04-01] MEDS ORDERED: HumuLIN R (REGULAR) INSULIN (NovoLIN R) **100U/ML** PER UNIT IV ONE (17:30)
[2017-04-01] MEDS ORDERED: INSULIN HUMAN REGULAR 100 UNITS in NS 99 ML IV SCH ×2 (17:30→17:31)
[2017-04-01] MEDS ORDERED: ONDANSETRON 4MG/2ML VIAL (J2405) IV PRN (17:45)
[2017-04-01] MEDS ORDERED: ACETAMINOPHEN TAB 650MG DOSE (2X325MG) PO PRN (17:45)
--- NOTE | 2017-04-01 18:14 | HPEPDOC ---
General Date of Admission 04-01-17 Primary Care Physician: Cristiane Chief Complaint The patient is a 61-year-old female admitted with a reason for visit of Abd. Pain. Source: Patient Exam Limitations: No limitations Severity: Moderate History of Present Illness Pt is a 61 y/o female with multiple past medical history of DM2, HTN, HYPERLIPIDEMIA, B/L LE DIABETIC ULCERS, DEPRESSION,MORBID OBESITY, CAD S/P CABG HX OSTEOMYELITIS WITH MSSA INFECTION, DM RETINOPATHY,DM NEUROPATHY,DM NEPHROPATHY, CKD STAGE IV, HTN,CHF DIASTOLIC DYSFUNCTION EF 65% and CHRONIC LOW BACK PAIN who presents today with generalized feeling of weakness. The pt states that she has been out of her long acting insulin for the past month and there appears to be an insurance issue which did not permit her to obtain it for this long. She denies n/v, chest pain or SOB, but did admit for the past 5 days her urine looks "orange" denied pain with urination or jorge luis blood, states she is not taking any medication that would cause her urine to be changed a different color. She denied a fever or change in vision but did admit to being dizzy this morning when she got out of bed, denied LOC or falls. She does follow with wound care for her diabetic ulcers on her b/l LE. Her main complaint today is generalized weakness, her significant other is at bedside and states that for the past week she has been so weak he has been taking her to the bathroom because she is too weak to ambulate on her own. Apparently she has not had a BM in 4 days, she was last admitted here on 12-05-16 for C. difficile colitis. Home Medications Scheduled (Tresiba Flextouch) 100 Unit/Ml Inj, 70 UNIT SC QHS, (Reported) HAS BEEN OUT FOR ABOUT A MONTH (Aspirin) 81 Mg Chw, 81 MG PO DAILY, (Reported) Acetaminophen (Acetaminophen ER) 650 Mg Tab, 1,300 MG PO QHS, (Reported) Allopurinol (Zyloprim) 300 Mg Tab, 300 MG PO QHS, (Reported) Amitriptyline HCl (Amitriptyline HCl) 25 Mg Tab, 25 MG PO QHS, (Reported) Calcium/Vitamin D (Calcium 600+D 600-200 mg-Unit) 1 Tab Tab, 1 TAB PO BID, ( Reported) Carvedilol (Carvedilol) 6.25 Mg Tab, 6.25 MG PO BID, (Reported) Cyclobenzaprine HCl (Cyclobenzaprine HCl) 10 Mg Tab, 10 MG PO QHS, (Reported) Dorzolamide HCl (Cosopt 22.3-6.8 mg/ml) 1 Ml Soln, 1 DROP OU BID, (Reported) Ferrous Sulfate (Ferrous Sulfate) 325 Mg Tab, 325 MG PO BID, (Reported) Fish Oil (Fish Oil 1000 mg) 1 Cap Cap, 2 CAP PO BID, (Reported) Insulin (Humulin R U-500 Kwikpen) 500 Unit/Ml Jennifer, 1 DOSE SC AC, (Reported) PER SLIDING SCALE Lactobacillus Acidophilus (Bacid) 1 Tab Tab, 1 TAB PO WM, (Reported) Latanoprost (Latanoprost) 50 Drop/2.5 Ml Soln, 1 DROP OU QHS, (Reported) Magnesium Oxide (Magnesium Oxide 400) 400 Mg Tab, 400 MG PO BID, (Reported) Multivitamins *[facility] STOCKED* (Thera M Plus *[facility] STOCKED*) 1 Tab Tab, 1 TAB PO DAILY, (Reported) Paroxetine Hydrochloride (Paxil) 20 Mg Tab, 20 MG PO QHS, (Reported) TAKES WITH THE 30MG FOR 50MG TOTAL Paroxetine Hydrochloride (Paxil) 30 Mg Tab, 30 MG PO QHS, (Reported) TAKES WITH THE 20MG FOR 50MG TOTAL Potassium Chloride (Klor-Con M20) 20 Meq Tabcr, 40 MEQ PO DAILY, (Reported) Potassium Chloride (Klor-Con M20) 20 Meq Tabcr, 20 MEQ PO ASDIRECTED, (Reported) TAKES ONLY WHEN SHE TAKES METOLAZONE Pregabalin (Lyrica) 75 Mg Cap, 75 MG PO BID, (Reported) Rosuvastatin Calcium (Rosuvastatin Calcium) 10 Mg Tab, 5 MG PO QHS, (Reported) Spironolactone (Spironolactone) 50 Mg Tab, 50 MG PO BID, (Reported) Torsemide (Torsemide) 20 Mg Tab, 40 MG PO BID, (Reported) Vitamin D (Drisdol) 50,000 Unit Cap, 50,000 UNIT PO QMONTH, (Reported) 15TH OF EVERY MONTH Scheduled PRN Docusate Sodium (Colace) 100 Mg Cap, 100 MG PO DAILY PRN for CONSTIPATION, ( Reported) Glucagon (Glucagen Diagnostic) 1 Mg Inj, 1 MG SC ASDIRECTED PRN for LOW BLOOD SUGAR, (Reported) Glucose (Glucose) 4 Gm Chw, 16 GM PO ASDIRECTED PRN for LOW BLOOD SUGAR, ( Reported) Metolazone (Metolazone) 2.5 Mg Tab, 2.5 MG PO ASDIRECTED PRN for FLUID RETENTION , (Reported) Nitroglycerin (Nitrostat) 0.4 Mg Subl, 0.4 MG SL NITRO PRN for CHEST PAIN, ( Reported) Ondansetron (Ondansetron Odt) 4 Mg Tab, 4 MG PO Q4H PRN for NAUSEA, (Reported) Allergies Coded Allergies: No Known Drug Allergy (Verified Allergy, Unknown, 01/20/17) Past Medical History Medical History DM2 HTN HYPERLIPIDEMIA B/L LE DIABETIC ULCERS DEPRESSION MORBID OBESITY CAD S/P CABG HX OSTEOMYELITIS WITH MSSA INFECTION DM RETINOPATHY DM NEUROPATHY DM NEPHROPATHY CKD STAGE IV HTN CHF DIASTOLIC DYSFUNCTION EF 65% CHRONIC LOW BACK PAIN Surgical History CAD S/P CABG CHOLECYSTECTOMY PARTIAL STERNOTOMY COLONOSCOPY Family History Significant Family History: No pertinent family hx Social History * Smoker: Denies Alcohol: Denies Drugs: denies Psychosocial History: Depression Review of Symptoms Constitutional: Reports: Malaise, Weakness, Fatigue, Denies: Chills, Fever, Night Sweats Eyes: Denies: Vision change, Conjunctivae inflammation ENT: Denies: Head Aches Skin: Reports: Lesions (FOOT ULCERS B/L), Denies: Rash Pulmonary: Denies: Dyspnea, Cough, Pleuritic Chest Pain Cardiovascular: Denies: Chest Pain, Palpitations Gastrointestinal: Reports: Constipation, Denies: Nausea, Vomiting, Abdominal Pain, Diarrhea, Melena, Hematochezia Genitourinary: Reports: Other Symptoms (states she has orange urine since 5-6 days ago), Denies: Dysuria, Frequency Hematologic: Denies: Bruising Neurological: Reports: Weakness, Denies: Numbness Psych: Reports: Mood Normal Physical Examination General Exam: Positive: Alert, Cooperative, No Acute Distress Eye Exam: Positive: Conjunctiva & lids normal, EOMI, Negative: Sclera icteric, Ptosis ENT Exam: Positive: Atraumatic, Tongue Midline, Negative: Mucous membr. moist/pink (PT MUCUS MEMBRANES SEEM DRY) Chest Exam: Positive: Clear to auscultation, Diminished, Negative: Rales, Rhonchi, Wheezing Heart Exam: Positive: Rate Normal, Normal S1, Normal S2, Negative: Gallops, Murmurs, Rubs Abdomen Exam: Positive: Normal bowel sounds, Soft, Negative: Tenderness, Hepatospenomegaly, Mass Extremity Exam: Positive: Cyanosis (RIGHT LE), Edema (+1 RIGHT LE), Normal pulses (B/L LE DORSALIS PEDIS STRONG), Negative: Clubbing Skin Exam: Positive: Breakdown (RIGHT AND LEFT STAGE 2 DM ULCERS RIGHT FIRST MTP ), Negative: Rash Psych Exam: Positive: Mental status NL, Oriented x 3 Vital Signs Vital Signs Date Time Temp Pulse Resp B/P (MAP) Pulse Ox O2 Delivery O2 Flow Rate FiO2 04/01/17 16:11 96.8 83 18 143/65 (91) 93 Room Air Laboratory Data Labs 24H Laboratory Tests 2 04/01/17 15:56: White Blood Count 13.2H, Red Blood Count 4.60, Hemoglobin 13.7, Hematocrit 44.2 , Mean Corpuscular Volume 96.1H, Mean Corpuscular Hemoglobin 29.9, Mean Corpuscular Hemoglobin Concent 31.1L, Red Cell Distribution Width 16.0H, Platelet Count 240, Neutrophils (%) (Auto) 82.4H, Lymphocytes (%) (Auto) 12.1L, Monocytes (%) (Auto) 2.4, Eosinophils (%) (Auto) 1.5, Basophils (%) (Auto) 0.6, Neutrophils # (Auto) 10.8H, Lymphocytes # (Auto) 1.7, Monocytes # (Auto) 0.3, Eosinophils # (Auto) 0.2, Basophils # (Auto) 0.1, Large Unclassified Cells % 1.1 , Large Unclassified Cells # 0.1, Anion Gap 15, Glomerular Filtration Rate 9.1L , Blood Urea Nitrogen 86H, Creatinine 5.16H, Sodium Level 122L, Potassium Level 3.5, Chloride Level 84L, Carbon Dioxide Level 23, Calcium Level 8.5, Aspartate Amino Transf (AST/SGOT) 11L, Alanine Aminotransferase (ALT/SGPT) 23, Alkaline Phosphatase 133H, Total Bilirubin 0.3, Total Protein 7.0, Albumin 2.9L, Albumin/ Globulin Ratio 0.71L 04/01/17 17:49: CBC/BMP Laboratory Tests 04/01/17 15:56 Red Blood Count 4.60, Mean Corpuscular Volume 96.1 H, Mean Corpuscular Hemoglobin 29.9, Mean Corpuscular Hemoglobin Concent 31.1 L, Red Cell Distribution Width 16.0 H, Neutrophils (%) (Auto) 82.4 H, Lymphocytes (%) (Auto ) 12.1 L, Monocytes (%) (Auto) 2.4, Eosinophils (%) (Auto) 1.5, Basophils (%) ( Auto) 0.6, Neutrophils # (Auto) 10.8 H, Lymphocytes # (Auto) 1.7, Monocytes # ( Auto) 0.3, Eosinophils # (Auto) 0.2, Basophils # (Auto) 0.1, Calcium Level 8.5, Aspartate Amino Transf (AST/SGOT) 11 L, Alanine Aminotransferase (ALT/SGPT) 23, Alkaline Phosphatase 133 H, Total Bilirubin 0.3, Total Protein 7.0, Albumin 2.9 L Problems (1) Diabetic hyperosmolar non-ketotic state Status: Acute Response to Treatment: Stable Problem Text: secondary to medical non-compliance, has not been taking her long acting insulin for over one month due to inability to afford medications pt NPO q4h BMP-will closely monitor potassium glucose 811 on presentation HgA1C pending UA pending microal ratio 100.3 Have begun fluid hydration and insulin therapy, pt made NPO. (2) HTN (hypertension) Status: Chronic Response to Treatment: Stable Problem Text: 143/65 stable Will continue pts home medications but hold on nephrotoxic medications in light of acute on chronic renal failure and worsening GFR and creatine (3) CKD (chronic kidney disease), stage IV Status: Chronic Response to Treatment: Stable Problem Text: GFR 9 will consult nephrology for further recommendations of treatment 5.16 creatine today, baseline 2.4 will check renal u/s and place jimenez catheter will avoid nephrotoxic medications IV fluid hydration (4) Diastolic CHF Permanent Comment: Echo: 11/28/2014: LVEF 65% Dr. Quintanilla is bobbin inspector. Last Edited By: Toshia Sauer NP on Oct 02, 2015 12:05 Status: Chronic Response to Treatment: Stable Problem Text: pt appears euvolemic will continue pts home diuretics (5) Depression Status: Chronic Response to Treatment: Stable Problem Text: will continue pt home medications (6) Diabetic ulcer of ankle Status: Acute Response to Treatment: Stable Problem Text: wbc 13.2 no white count morning team may consider wound culture and consult will hold abx for now pt afebrile ulcers b/l LE stage 2 non-oozing pus, nor bleeding. (7) Hyponatremia Status: Acute Response to Treatment: Stable Problem Text: Na 122 pt receiving IV normal saline will adjust up slowly (8) Dehydration Status: Resolved Response to Treatment: Stable Problem Text: pt receiving IV fluid hydration will continue to monitor (9) DVT prophylaxis Status: Acute Response to Treatment: Stable Problem Text: pt will be on heparin Plan / VTE VTE Prophylaxis Ordered?: Yes Plan / Urinary Catheter Reason for insertion/continuin: Critical Pt monitoring GME ATTESTATION GME ATTESTATION My preceptor for this patient encounter was physically present in the building during the encounter and was fully available. As needed, all aspects of the patient interview, examination, medical decision making process, and medical care plan development were reviewed and approved by the preceptor. Preceptor is aware and concurs with the plan as stated in the body of this note and will attest to such by his/her cosignature. Attending Note Attending Note I have independently interviewed and examined this patient at the bedside, and discussed the management plan with my Resident Physician as documented above. MONICA SLOAN DO Apr 01, 2017 18:14 LLUVIA FERNÁNDEZ MD Apr 02, 2017 07:19
[2017-04-01] MEDS: NS 1,000 ML IV SCH ×2 (18:41→23:12)
[2017-04-01] MEDS: INSULIN HUMAN REGULAR 100 UNITS in NS 99 ML IV SCH (19:00)
--- NOTE | 2017-04-01 19:30 | REPUSA ---
Clinical history: Renal failure. Findings: The urinary bladder appears unremarkable but is severely distended, measuring 20.0 x 12.8 x 14.5 cm. No urinary bladder masses are seen. The patient was unable to void. The right kidney measur es 10.8 x 5.4 x 5.1 cm. There is a simple cyst in the upper right kidney measuring 1.1 x 1.1 x 1.6 cm . The left kidney measures 13.9 x 4.9 x 7.5 cm. The kidneys demonstrate normal echotexture and echoge nicity. There is no evidence of hydronephrosis or nephrolithiasis. No renal masses are seen. No free fluid is appreciated. Impression: Unremarkable ultrasound examination of the kidneys. Simple right renal cyst. Severely dis tended urinary bladder.
[2017-04-01] MEDS ORDERED: ASPI81CH PO (20:11)
[2017-04-01] MEDS ORDERED: ONDA4TAB6 PO (20:11)
[2017-04-01] MEDS ORDERED: BACITAB PO (20:11)
[2017-04-01] MEDS ORDERED: ACE65ERTAB PO (20:11)
[2017-04-01 21:11] LABS: CALCIUM LEVEL 8.4 MG/DL (8.5-10.1); CREATININE FOR GFR 4.95 MG/DL (0.55-1.02); GLOMERULAR FILTRATION RATE 9.5 (>51); POTASSIUM SERUM 2.9 MEQ/L (3.5-5.1)
[2017-04-01 21:16] VITALS: BP 117/56
[2017-04-01] MEDS ORDERED: HEPARIN SOD (PORCINE) 5000 UNITS/ML VIAL SQ SCH (22:00)
[2017-04-01] MEDS: INSULIN IV RATE CHANGE DOCUMENTATION ML/HR XX SCH ×2 (22:07→23:44)
[2017-04-01 23:04] VITALS: BP 143/71
[2017-04-01] MEDS: HEPARIN SOD (PORCINE) 5000 UNITS/ML VIAL SQ SCH (23:13)
[2017-04-02] VITALS (8 sets, daily range): BP systolic 95–136; BP diastolic 46–62
[2017-04-02] MEDS ORDERED: FLUCONAZOLE 50MG TABLET PO ONE
[2017-04-02] MEDS: NYSTATIN 100,000 UNITS/GM TOPICAL PWD 15 GM TOP SCH ×3 (00:19→21:35)
[2017-04-02] MEDS ORDERED: POTASSIUM CHLORIDE 10 MEQ SR TABLET PO ONE ×4 (02:00→08:00)
[2017-04-02 02:10] LABS: BLOOD UREA NITROGEN 84 MG/DL (7-18); CREATININE FOR GFR 4.55 MG/DL (0.55-1.02); GLOMERULAR FILTRATION RATE 10.5 (>51); GLUCOSE, FASTING 484 MG/DL (70-105); SODIUM LEVEL 130 MEQ/L (136-145)
[2017-04-02 02:11] LABS: ANION GAP 6 MEQ/L (8-16); CARBON DIOXIDE LEVEL 28 MEQ/L (21-32); CHLORIDE LEVEL 96 MEQ/L (98-107); POTASSIUM SERUM 2.8 MEQ/L (3.5-5.1)
[2017-04-02] MEDS: NS 1,000 ML IV SCH (03:49)
[2017-04-02] MEDS: INSULIN HUMAN REGULAR 100 UNITS in NS 99 ML IV SCH (04:53)
[2017-04-02] MEDS: INSULIN IV RATE CHANGE DOCUMENTATION ML/HR XX SCH ×3 (04:56→06:55)
[2017-04-02 05:28] LABS: ANION GAP 9 MEQ/L (8-16); BLOOD UREA NITROGEN 78 MG/DL (7-18); CALCIUM LEVEL 7.9 MG/DL (8.5-10.1); CARBON DIOXIDE LEVEL 25 MEQ/L (21-32); CHLORIDE LEVEL 103 MEQ/L (98-107); CREATININE FOR GFR 4.03 MG/DL (0.55-1.02); GLOMERULAR FILTRATION RATE 12.1 (>51); GLUCOSE, FASTING 208 MG/DL (70-105); POTASSIUM SERUM 2.9 MEQ/L (3.5-5.1); SODIUM LEVEL 137 MEQ/L (136-145)
[2017-04-02] MEDS ORDERED: INSULIN HUMAN REGULAR 100 UNITS in NS 99 ML IV SCH ×2 (07:30→13:00)
--- NOTE | 2017-04-02 07:43 | IPNPDOC ---
Subjective Date Seen The patient was seen on 04/02/17. Subjective Chief Complaint/HPI The patient is a 61-year-old female admitted with a reason for visit of Diabetic Hyerosmolar Non-Ketotic State. Events since last encounter Pt states she feels about the same. Denies CP, SOB, Abd pain. Constitutional: Denies: Chills, Fever Pulmonary: Denies: Dyspnea Cardiovascular: Denies: Chest Pain Gastrointestinal: Denies: Nausea, Vomiting, Abdominal Pain Objective Physical Examination General Exam: Positive: Alert, Cooperative, No Acute Distress Eye Exam: Positive: Conjunctiva & lids normal, EOMI, Negative: Sclera icteric, Ptosis ENT Exam: Positive: Atraumatic, Tongue Midline, Negative: Mucous membr. moist/pink (PT MUCUS MEMBRANES SEEM DRY) Chest Exam: Positive: Clear to auscultation, Diminished, Negative: Rales, Rhonchi, Wheezing Heart Exam: Positive: Rate Normal, Normal S1, Normal S2, Negative: Gallops, Murmurs, Rubs Abdomen Exam: Positive: Normal bowel sounds, Soft, Negative: Tenderness, Hepatospenomegaly, Mass Extremity Exam: Positive: Cyanosis (RIGHT LE), Edema (+1 RIGHT LE), Normal pulses (B/L LE DORSALIS PEDIS STRONG), Negative: Clubbing Skin Exam: Positive: Breakdown (RIGHT AND LEFT STAGE 2 DM ULCERS RIGHT FIRST MTP ), Negative: Rash Psych Exam: Positive: Mental status NL, Oriented x 3 Assessment /Plan Problems (1) Diabetic hyperosmolar non-ketotic state Status: Acute Response to Treatment: Stable Problem Text: 04/02 - Has been on Insulin drip per protocol. BS trending down. Insulin drip stopped. Start SSI. Start Levemir at 30 units - titrate as needed. Getting KCl replacement. Overnight insulin use was only 37 units total to bring down her glucose. secondary to medical non-compliance, has not been taking her long acting insulin for over one month due to inability to afford medications pt NPO q4h BMP-will closely monitor potassium glucose 811 on presentation HgA1C pending UA pending microal ratio 100.3 Have begun fluid hydration and insulin therapy, pt made NPO. (2) HTN (hypertension) Status: Chronic Response to Treatment: Stable Problem Text: 04/02 - BPs stable. Off home Carvedilol, Spironolactone, Torsemide. 143/65 stable Will continue pts home medications but hold on nephrotoxic medications in light of acute on chronic renal failure and worsening GFR and creatine (3) CKD (chronic kidney disease), stage IV Status: Chronic Response to Treatment: Stable Problem Text: 04/02 - Creat 4.03. Nephrology consulted. GFR 9 will consult nephrology for further recommendations of treatment 5.16 creatine today, baseline 2.4 will check renal u/s and place jimenez catheter will avoid nephrotoxic medications IV fluid hydration (4) Diastolic CHF Permanent Comment: Echo: 11/28/2014: LVEF 65% Dr. Quintanilla is home care manager rn. Last Edited By: Toshia Sauer NP on Oct 02, 2015 12:05 Status: Chronic Response to Treatment: Stable Problem Text: 04/02 - Outpt Torsemide and Spironolactone were held at admission. pt appears euvolemic will continue pts home diuretics (5) Depression Status: Chronic Response to Treatment: Stable Problem Text: 04/02 - Outpt Paxil was held at admission. will continue pt home medications (6) Diabetic ulcer of ankle Status: Acute Response to Treatment: Stable Problem Text: 04/02 - Recheck CBC. Discuss with attending. wbc 13.2 no white count morning team may consider wound culture and consult will hold abx for now pt afebrile ulcers b/l LE stage 2 non-oozing pus, nor bleeding. (7) Hyponatremia Status: Acute Response to Treatment: Stable Problem Text: 04/02 - Na 137. Received IVF. Na 122 pt receiving IV normal saline will adjust up slowly (8) Dehydration Status: Resolved Response to Treatment: Stable Problem Text: pt receiving IV fluid hydration will continue to monitor (9) DVT prophylaxis Status: Acute Response to Treatment: Stable Problem Text: pt will be on heparin Plan/VTE VTE Prophylaxis Ordered?: Yes Plan/Urinary Catheter Reason for insertion/continuin: Critical Pt monitoring VS, I&O, 24H, Fishbone Vital Signs/I&O Vital Signs Date Time Temp Pulse Resp B/P (MAP) Pulse Ox O2 Delivery O2 Flow Rate FiO2 04/02/17 05:01 96.8 77 16 111/55 (73) 95 Room Air Laboratory Data 24H LABS Laboratory Tests 2 04/01/17 15:53: Urine Appearance HAZY, Urine Color YELLOW, Urine pH 5.0, Urine Specific [place] 1.010, Urine Protein NEGATIVE, Urine Glucose (UA) 3+H, Urine Ketones NEGATIVE, Urine Urobilinogen 0.2, Urine Bilirubin NEGATIVE, Urine Leukocyte Esterase 3+H, Urine Blood 3+H, Urine Nitrite NEGATIVE, Urine WBC (Auto) 78H, Urine RBC (Auto) 62H, Urine Hyaline Casts (Auto) 0, Urine Bacteria (Auto) 1+H, Urine Squamous Epithelial Cells 4, Urine Mucus (Auto) SMALL, Urine Sperm (Auto) 04/01/17 15:56: White Blood Count 13.2H, Red Blood Count 4.60, Hemoglobin 13.7, Hematocrit 44.2 , Mean Corpuscular Volume 96.1H, Mean Corpuscular Hemoglobin 29.9, Mean Corpuscular Hemoglobin Concent 31.1L, Red Cell Distribution Width 16.0H, Platelet Count 240, Neutrophils (%) (Auto) 82.4H, Lymphocytes (%) (Auto) 12.1L, Monocytes (%) (Auto) 2.4, Eosinophils (%) (Auto) 1.5, Basophils (%) (Auto) 0.6, Neutrophils # (Auto) 10.8H, Lymphocytes # (Auto) 1.7, Monocytes # (Auto) 0.3, Eosinophils # (Auto) 0.2, Basophils # (Auto) 0.1, Large Unclassified Cells % 1.1 , Large Unclassified Cells # 0.1, Anion Gap 15, Glomerular Filtration Rate 9.1L , Blood Urea Nitrogen 86H, Creatinine 5.16H, Sodium Level 122L, Potassium Level 3.5, Chloride Level 84L, Carbon Dioxide Level 23, Calcium Level 8.5, Aspartate Amino Transf (AST/SGOT) 11L, Alanine Aminotransferase (ALT/SGPT) 23, Total Creatine Kinase 124, Alkaline Phosphatase 133H, Total Bilirubin 0.3, Total Protein 7.0, Albumin 2.9L, Creatine Kinase MB 5.6H, Creatine Kinase MB Relative Index 4.51H, Troponin I < 0.02, Albumin/Globulin Ratio 0.71L, B-Hydroxybutyrate 1.31 04/01/17 17:49: Estimated Mean Plasma Glucose 301H, Hemoglobin A1c 12.1H 04/01/17 20:41: Anion Gap 8, Glomerular Filtration Rate 9.5L, Blood Urea Nitrogen 85H, Creatinine 4.95H, Sodium Level 125L, Potassium Level 2.9*L, Chloride Level 90L, Carbon Dioxide Level 27, Calcium Level 8.4L, Bedside Glucose Confirm (Misc) 664* H 04/02/17 00:40: Anion Gap 6L, Glomerular Filtration Rate 10.5L, Blood Urea Nitrogen 84H, Creatinine 4.55H, Sodium Level 130L, Potassium Level 2.8*L, Chloride Level 96L, Carbon Dioxide Level 28, Calcium Level 8.0L, Total Creatine Kinase 104, Creatine Kinase MB 5.2H, Creatine Kinase MB Relative Index 5.00H, Troponin I < 0.02 04/02/17 03:03: Bedside Glucose (Misc Panel) 328H 04/02/17 04:01: Bedside Glucose (Misc Panel) 230H 04/02/17 04:44: Anion Gap 9, Glomerular Filtration Rate 12.1L, Blood Urea Nitrogen 78H, Creatinine 4.03H, Sodium Level 137#, Potassium Level 2.9*L, Chloride Level 103, Carbon Dioxide Level 25, Calcium Level 7.9L, Total Creatine Kinase 110, Creatine Kinase MB 4.6H, Creatine Kinase MB Relative Index 4.18H, Troponin I < 0.02 04/02/17 04:53: Bedside Glucose (Misc Panel) 188H 04/02/17 06:04: Bedside Glucose (Misc Panel) 159H 04/02/17 06:52: Bedside Glucose (Misc Panel) 140H CBC/BMP Laboratory Tests 04/01/17 15:56 Red Blood Count 4.60, Mean Corpuscular Volume 96.1 H, Mean Corpuscular Hemoglobin 29.9, Mean Corpuscular Hemoglobin Concent 31.1 L, Red Cell Distribution Width 16.0 H, Neutrophils (%) (Auto) 82.4 H, Lymphocytes (%) (Auto ) 12.1 L, Monocytes (%) (Auto) 2.4, Eosinophils (%) (Auto) 1.5, Basophils (%) ( Auto) 0.6, Neutrophils # (Auto) 10.8 H, Lymphocytes # (Auto) 1.7, Monocytes # ( Auto) 0.3, Eosinophils # (Auto) 0.2, Basophils # (Auto) 0.1, Calcium Level 8.5, Aspartate Amino Transf (AST/SGOT) 11 L, Alanine Aminotransferase (ALT/SGPT) 23, Total Creatine Kinase 124, Alkaline Phosphatase 133 H, Total Bilirubin 0.3, Total Protein 7.0, Albumin 2.9 L 04/01/17 20:41 Calcium Level 8.4 L 04/02/17 00:40 Calcium Level 8.0 L, Total Creatine Kinase 104 04/02/17 04:44 Calcium Level 7.9 L, Total Creatine Kinase 110 Santiago Gonzlaez Apr 02, 2017 07:43 Thong Rowe MD Apr 02, 2017 11:23
[2017-04-02] MEDS: HEPARIN SOD (PORCINE) 5000 UNITS/ML VIAL SQ SCH ×2 (08:50→21:34)
[2017-04-02 09:54] LABS: BASO # 0.1 K/mm3 (0.0-0.2); BASO % 0.6 % (0.0-1.0); EOS # 0.4 K/mm3 (0.0-0.50); EOS % 2.4 % (0.0-3.0); LARGE UNSTAINED CELL # 0.2 K/mm3 (0.0-0.4); LARGE UNSTAINED CELL % 1.3 % (0.0-4.0); LYMPH # 1.9 K/mm3 (1.5-4.5); LYMPH % 10.8 % (24.0-44.0); MEAN CORPUSCULAR HEMOGLOBIN 29.6 pg (27.0-33.0); MEAN CORPUSCULAR HGB CONC 32.4 g/dl (32.0-36.5); MEAN CORPUSCULAR VOLUME 91.2 fl (80.0-96.0); MONO # 0.5 K/mm3 (0.0-0.8); NEUTROPHILS # 12.9 K/mm3 (1.8-7.7); NEUTROPHILS % 81.8 % (36.0-66.0); PLATELET COUNT, AUTOMATED 246 k/mm3 (150-450); RED CELL DISTRIBUTION WIDTH 16.3 % (11.5-14.5); WHITE BLOOD COUNT 15.8 K/mm3 (4.0-10.0)
[2017-04-02 10:29] LABS: ALBUMIN 2.3 GM/DL (3.2-5.2); CALCIUM LEVEL 7.8 MG/DL (8.5-10.1); CREATININE FOR GFR 3.67 MG/DL (0.55-1.02); GLOMERULAR FILTRATION RATE 13.5 (>51); MAGNESIUM LEVEL 2.5 MG/DL (1.8-2.4); PHOSPHORUS LEVEL 2.5 MG/DL (2.5-4.9); POTASSIUM SERUM 3.5 MEQ/L (3.5-5.1)
[2017-04-02] MEDS ORDERED: GLUCAGON FOR INJ 1 MG VIAL (J1610) SC PRN (11:00)
[2017-04-02] MEDS ORDERED: cefTRIAXone SOD 1 GM in D5W MINI-BAG PLUS 50 ML IV SCH (11:00)
[2017-04-02] MEDS ORDERED: GLUCOSE 4 GM CHEW TABLET PO PRN (11:00)
[2017-04-02] MEDS ORDERED: DEXTROSE 50% 50 ML SYRINGE IV PRN (11:00)
[2017-04-02] MEDS: HumaLOG INSULIN (NovoLOG) PER UNIT SC SCH ×3 (12:31→21:00)
--- NOTE | 2017-04-02 13:26 | REP ---
Right lower extremity deep vein duplex ultrasound: The deep veins demonstrate normal compression, normal Doppler color flow and normal Doppler waveforms with respiration augmentation at multiple levels from the popliteal vein to the common femoral vein. Impression: There is no right lower extremity deep vein thrombus. Signed by Cipriano Hopkins MD 04/02/2017 01:16 P
--- NOTE | 2017-04-02 14:08 | CR ---
DATE OF CONSULTATION: 04/02/2017 REQUESTING PHYSICIAN: Dr. Lonnie Garnett CONSULTING PHYSICIAN: Dr. Agrawal REASON FOR CONSULTATION: Management of acute kidney injury superimposed on chronic kidney disease. CHIEF COMPLAINT: Patient presented to the emergency room yesterday because of abdominal pain and weakness. HISTORY OF PRESENT ILLNESS: Chelsey Juárez is a 61-year-old female with past medical history of chronic kidney disease Stage IV with a best baseline creatinine of about 2.5 as per previous records, diabetes mellitus type 2 with diabetic nephropathy, hypertension, morbid obesity, multiple other comorbidities as mentioned below. She presented to the hospital yesterday with generalized weakness, dizziness, feeling tired, fatigued, and inability to move around. She admitted that she had not been taking her long acting insulin for almost a month. She also reported dark colored urine. The patient was found to have a glucose level of more than 800 on arrival and she was also found to be in acute kidney injury with a creatinine of 5.1. The patient was admitted yesterday to the intensive care unit (ICU) with hyperglycemic, hyperosmolar, nonketotic state. She was started on IV fluids and IV insulin drip. Nephrology service was called for further help in the management of acute kidney injury superimposed on chronic kidney disease and electrolyte abnormalities. The patient was already discussed by me with the on-call resident yesterday. I saw the patient today morning. The patient reports that she has been feeling better since the time that she came to the ICU. She got IV fluids overnight. Her glucose is trending down and I see an improvement trend in her renal function as well. PAST MEDICAL HISTORY: 1. Insulin dependent diabetes. 2. Hypertension. 3. History of bilateral lower extremity leg ulcers. 4. Depression. 5. Morbid obesity. 6. Diabetic retinopathy. 7. Chronic kidney disease Stage IV with a baseline creatinine of around 2.5. 8. Congestive heart failure with diastolic dysfunction. PAST SURGICAL HISTORY: 1. History of coronary artery bypass grafting in the past. 2. Status post cholecystectomy. 3. History of partial sternotomy in the past. ALLERGIES: No known drug allergies. FAMILY HISTORY: No significant family history of end stage renal disease requiring hemodialysis. SOCIAL HISTORY: The patient lives at home. Denies any illicit drug abuse, smoking or alcohol abuse. REVIEW OF SYSTEMS: Constitutional: Patient reported that she was feeling very weak, tired and fatigued when she came in, but she is feeling better now. Eyes: She denies any blurry vision or double vision. ENT: She denies any dysphagia, odynophagia, ear discharge. Cardiovascular: She denies any chest pain or palpitations. She does report lower extremity edema. Respiratory: She denies any cough or shortness of breath. GI: She denies any constipation, diarrhea, nausea, or vomiting. : The patient reported dark colored urine when she came in. Hematologic/Oncologic: She denies any easy bruising or bleeding. Central Nervous System: The patient reported weakness on arrival, but she denies any numbness, seizures, or strokes. Psychiatric: She reports history of depression in the past. Endocrine: The patient reports insulin dependent diabetes. All other review of systems is negative. PHYSICAL EXAMINATION: General: The patient is awake, alert, and oriented times three, laying in bed, in no apparent distress. Vital Signs: Temperature 97.6 degrees Fahrenheit. Blood pressure 121/56. Pulse 75. Respiratory rate 16. Saturating 98% on room air. Intake and Output: Urine output recorded as 1.5 liters yesterday and 2 liters so far today since overnight. Weight on the bed scale is 106.9 kg. Head and Neck Exam: Extraocular muscles intact. Pupils equally round and reactive to light. Mucous membranes are moist. Neck is supple. There is no jugular venous distention (JVD). Cardiovascular: S1, S2. Regular rate. No murmur, rub or gallop. Respiratory: Chest is clear to auscultation bilaterally. Bilateral equal air entry. No rales or rhonchi. Abdomen: Soft. Obese. Positive bowel sounds. Nontender. No ascites. No organomegaly. Genitourinary: The patient has a Britt catheter at this time. Urine in the bag is clear. Musculoskeletal: Patient has ulcers on the bilateral lower extremities, right is greater than left. She has 1+ edema of the bilateral lower extremities. Central Nervous System: No focal neurological deficit. Power is 5/5 in bilateral upper extremities. Skin: No rashes. Positive ulcerations of the lower extremities bilaterally as mentioned above. Psychiatric: Normal mood and affect. LAB REVIEW: CBC showed a WBC of 15.8, hemoglobin 12.5, and platelets are 246. Urinalysis showed 3+ glucose, 3+ blood, 3+ leukocyte esterase, 78 WBCs, and 1+ bacteria. BMP on arrival showed sodium 122, potassium 3.5, chloride 84, bicarbonate 23, BUN 86, creatinine 5.1, glucose 811. BMP done today morning showed sodium 139, potassium 3.5, chloride 106, bicarbonate 22, BUN 74, creatinine 3.6, glucose 88, calcium 7.8, phosphorus 2.5, magnesium 2.5. Albumin was 2.3. Beta hydroxybutyrate was 1.31. MICROBIOLOGY: GI panel is positive. IMAGING: Renal ultrasound done on admission yesterday showed unremarkable ultrasound of the kidneys, simple right renal cyst and severely distended urinary bladder. CURRENT INPATIENT MEDICATIONS: The patient's medications were reviewed by me. She was given IV fluid hydration overnight. She was on IV insulin drip overnight which has stopped today morning. I started the patient on IV Rocephin 1 gram IV every 24 hours. She is on Tylenol as needed. She was started on fluconazole 50 mg by mouth one dose. She is on heparin subcutaneous. She was started on insulin Levemir 30 units subcutaneous at bedtime. She is on insulin sliding scale right now. The patient was given by mouth potassium chloride overnight because of hypokalemia. ASSESSMENT: 61-year-old female with past medical history of chronic kidney disease Stage IV, diabetes mellitus type 2, hypertension, morbid obesity, coronary artery disease, and congestive heart failure with diastolic dysfunction with this admission to the ICU with hyperglycemic, hyperosmolar, nonketotic state and acute kidney injury superimposed on chronic kidney disease. PLAN: 1. Acute kidney disease superimposed on chronic kidney disease. It is secondary to a combination of dehydration, volume depletion, hyperglycemic state and urinary obstruction. The patient already got the IV fluid overnight. She also has a Britt catheter at this time. Renal function is improving. Baseline creatinine is around 2.5. Creatinine is down to 3.6 at this time. Continue to monitor for improvement of renal function. Avoid MARIBETH inhibitors and diuretics at this time. 2. Diabetic nonketotic hyperglycemic hyperosmolar state. The patient was given IV insulin overnight. Glucose level has nicely improved to 88 today morning. The patient was started on long acting insulin and insulin sliding scale. She has been adequately hydrated. Continue to monitor finger sticks at this time. The patient will start the diabetic diet this morning. 3. Urinary tract infection. The patient was having urinary obstruction. Urinalysis done today morning shows 3+ leukocyte esterase and 1+ bacteria. Culture is pending. I have empirically started the patient on IV ceftriaxone 1 gram every 24 hours. 4. Hypokalemia. The patient became hypokalemic overnight. With IV insulin and IV fluid hydration, potassium was around 2.9, potassium has already been aggressively repleted. Repeat potassium level is 3.5. Continue to monitor potassium and replete as needed. 5. History of diastolic congestive heart failure. The patient was on diuretics at home. Diuretics are on hold because of diabetic hyperosmolar state. Volume status is optimal at this time. No need of diuretics at this moment. 6. Hypertension. The patient's blood pressure is acceptable at this time. Her home dose of antihypertensive is Coreg 6.25 mg by mouth twice a day. Antihypertensives are on hold at this time. Once the blood pressure comes up, then home dose of beta yeyo will be started. Thank you for involving us in the care of the patient. We shall be happy to follow the patient along with you tomorrow morning. Plan of care was discussed with the medical team.
[2017-04-02] MEDS: metroNIDAZOLE (FLAGYL) 500 MG TAB PO SCH ×2 (16:39→21:35)
[2017-04-02 16:49] LABS: CALCIUM LEVEL 7.8 MG/DL (8.5-10.1); CREATININE FOR GFR 3.48 MG/DL (0.55-1.02); GLOMERULAR FILTRATION RATE 14.3 (>51); POTASSIUM SERUM 3.9 MEQ/L (3.5-5.1)
[2017-04-02 18:31] LABS: CALCIUM LEVEL 7.5 MG/DL (8.5-10.1); CREATININE FOR GFR 3.48 MG/DL (0.55-1.02); GLOMERULAR FILTRATION RATE 14.3 (>51)
[2017-04-02] MEDS ORDERED: LEVEMIR (INSULIN DETEMIR) 1 UNITS/0.01ML SC SCH (21:00)
[2017-04-02 22:26] LABS: CALCIUM LEVEL 8.3 MG/DL (8.5-10.1); CREATININE FOR GFR 3.27 MG/DL (0.55-1.02); GLOMERULAR FILTRATION RATE 15.4 (>51)
[2017-04-03] VITALS (8 sets, daily range): BP systolic 114–146; BP diastolic 56–65
[2017-04-03 02:36] LABS: CALCIUM LEVEL 7.8 MG/DL (8.5-10.1); CREATININE FOR GFR 3.14 MG/DL (0.55-1.02); GLOMERULAR FILTRATION RATE 16.1 (>51)
[2017-04-03 06:08] LABS: BASO % 0.2 % (0.0-1.0); EOS % 0.1 % (0.0-3.0); LARGE UNSTAINED CELL # 0.2 K/mm3 (0.0-0.4); LARGE UNSTAINED CELL % 0.7 % (0.0-4.0); LYMPH # 0.8 K/mm3 (1.5-4.5); LYMPH % 3.9 % (24.0-44.0); MEAN CORPUSCULAR HEMOGLOBIN 31.1 pg (27.0-33.0); MEAN CORPUSCULAR HGB CONC 33.9 g/dl (32.0-36.5); MEAN CORPUSCULAR VOLUME 91.5 fl (80.0-96.0); MONO # 0.4 K/mm3 (0.0-0.8); MONO % 1.8 % (0.0-5.0); NEUTROPHILS # 19.6 K/mm3 (1.8-7.7); NEUTROPHILS % 93.2 % (36.0-66.0); PLATELET COUNT, AUTOMATED 286 k/mm3 (150-450); RED CELL DISTRIBUTION WIDTH 16.1 % (11.5-14.5)
[2017-04-03 06:09] LABS: CALCIUM LEVEL 8.2 MG/DL (8.5-10.1); CREATININE FOR GFR 3.16 MG/DL (0.55-1.02); POTASSIUM SERUM 4.4 MEQ/L (3.5-5.1)
[2017-04-03] MEDS: HumaLOG INSULIN (NovoLOG) PER UNIT SC SCH ×4 (08:38→22:01)
[2017-04-03] MEDS: HEPARIN SOD (PORCINE) 5000 UNITS/ML VIAL SQ SCH ×2 (08:39→22:00)
[2017-04-03] MEDS: metroNIDAZOLE (FLAGYL) 500 MG TAB PO SCH (08:39)
[2017-04-03] MEDS: NYSTATIN 100,000 UNITS/GM TOPICAL PWD 15 GM TOP SCH ×2 (08:39→22:01)
[2017-04-03] MEDS ORDERED: INFLUENZA QUADRIVALENT PF VACCINE 0.5ML SYRINGE (90686) IM ONE (09:00)
[2017-04-03] MEDS ORDERED: NS 1,000 ML IV SCH (09:00)
--- NOTE | 2017-04-03 10:46 | IPNPDOC ---
Subjective Date Seen The patient was seen on 04/03/17. Subjective Chief Complaint/HPI The patient is a 61-year-old female admitted with a reason for visit of Diabetic Hyerosmolar Non-Ketotic State. Events since last encounter Pt reports two loose stools this morning. She is otherwise feeling pretty well. Denies new concerns. General: Denies: Fatigue Constitutional: Denies: Chills, Fever Pulmonary: Denies: Dyspnea, Cough Cardiovascular: Denies: Chest Pain, Palpitations Gastrointestinal: Reports: Diarrhea, Denies: Nausea, Vomiting Neurological: Reports: Weakness Psych: Reports: Mood Normal Objective Physical Examination General Exam: Positive: Alert, Cooperative, No Acute Distress Eye Exam: Positive: Conjunctiva & lids normal, EOMI ENT Exam: Positive: Atraumatic, Tongue Midline Chest Exam: Positive: Clear to auscultation, Diminished Heart Exam: Positive: Rate Normal, Normal S1, Normal S2 Abdomen Exam: Positive: Normal bowel sounds, Soft Extremity Exam: Positive: Cyanosis, Edema Skin Exam: Positive: Breakdown Psych Exam: Positive: Mental status NL, Oriented x 3 Assessment /Plan Problems (1) Diabetic hyperosmolar non-ketotic state Status: Acute Response to Treatment: Stable Problem Text: 04/03 - Rec Levemir 30 units last night, FSBS 344 this morning, will increase to 40 units this evening, cont with SSI, Cons carb diet. 04/02 - Has been on Insulin drip per protocol. BS trending down. Insulin drip stopped. Start SSI. Start Levemir at 30 units - titrate as needed. Getting KCl replacement. Overnight insulin use was only 37 units total to bring down her glucose. secondary to medical non-compliance, has not been taking her long acting insulin for over one month due to inability to afford medications pt NPO q4h BMP-will closely monitor potassium glucose 811 on presentation HgA1C pending UA pending microal ratio 100.3 Have begun fluid hydration and insulin therapy, pt made NPO. (2) HTN (hypertension) Status: Chronic Response to Treatment: Stable Problem Text: 04/02 - BPs stable. Off home Carvedilol, Spironolactone, Torsemide. 143/65 stable Will continue pts home medications but hold on nephrotoxic medications in light of acute on chronic renal failure and worsening GFR and creatine (3) CKD (chronic kidney disease), stage IV Status: Chronic Response to Treatment: Stable Problem Text: 04/02 - Creat 4.03. Nephrology consulted. 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 Last Edited By: Toshia Sauer NP on Oct 02, 2015 12:05 Status: Chronic Response to Treatment: Stable Problem Text: 04/02 - Outpt Torsemide and Spironolactone were held at admission. pt appears euvolemic will continue pts home diuretics (5) Depression Status: Chronic Response to Treatment: Stable Problem Text: 04/02 - Outpt Paxil was held at admission. will continue pt home medications (6) Diabetic ulcer of ankle Status: Acute Response to Treatment: Stable Problem Text: 04/02 - Recheck CBC. Discuss with attending. wbc 13.2 no white count morning team may consider wound culture and consult will hold abx for now pt afebrile ulcers b/l LE stage 2 non-oozing pus, nor bleeding. (7) Hyponatremia Status: Acute Response to Treatment: Stable Problem Text: 04/02 - Na 137. Received IVF. Na 122 pt receiving IV normal saline will adjust up slowly (8) Dehydration Status: Resolved Response to Treatment: Stable Problem Text: pt receiving IV fluid hydration will continue to monitor (9) DVT prophylaxis Status: Acute Response to Treatment: Stable Problem Text: pt will be on heparin (10) C. difficile colitis Status: Acute Response to Treatment: Stable Discussed With: Nurse, Patient Problem Specific Plan: Monitor Clinically Problem Text: Started on Flagyl 04/02, stools less frequent overnight, monitor sypmtoms. Plan/VTE VTE Prophylaxis Ordered?: Yes Plan/Urinary Catheter Reason for insertion/continuin: Critical Pt monitoring Disposition Transfer to the floor. anticipate d/c home tomorrow. VS, I&O, 24H, Fishbone Vital Signs/I&O Vital Signs Date Time Temp Pulse Resp B/P (MAP) Pulse Ox O2 Delivery O2 Flow Rate FiO2 04/03/17 08:00 97.0 99 14 136/63 (87) 99 Room Air Laboratory Data 24H LABS Laboratory Tests 2 04/02/17 12:08: Bedside Glucose (Misc Panel) 168H 04/02/17 13:45: Anion Gap 13, Glomerular Filtration Rate 14.3L, Blood Urea Nitrogen 70H, Creatinine 3.48H, Sodium Level 139, Potassium Level 3.9, Chloride Level 103, Carbon Dioxide Level 23, Calcium Level 7.8L 04/02/17 17:48: Anion Gap 13, Glomerular Filtration Rate 14.3L, Blood Urea Nitrogen 67H, Creatinine 3.48H, Sodium Level 139, Potassium Level 4.0, Chloride Level 103, Carbon Dioxide Level 23, Calcium Level 7.5L 04/02/17 18:27: Bedside Glucose (Misc Panel) 289H 04/02/17 21:25: Bedside Glucose (Misc Panel) 247H 04/02/17 21:58: Anion Gap 10, Glomerular Filtration Rate 15.4L, Blood Urea Nitrogen 64H, Creatinine 3.27H, Sodium Level 138, Potassium Level 4.0, Chloride Level 105, Carbon Dioxide Level 23, Calcium Level 8.3L 04/03/17 01:56: Anion Gap 11, Glomerular Filtration Rate 16.1L, Blood Urea Nitrogen 66H, Creatinine 3.14H, Sodium Level 136, Potassium Level 4.0, Chloride Level 104, Carbon Dioxide Level 21, Calcium Level 7.8L 04/03/17 05:38: Anion Gap 15, Glomerular Filtration Rate 16.0L, Blood Urea Nitrogen 62H, Creatinine 3.16H, Sodium Level 139, Potassium Level 4.4, Chloride Level 105, Carbon Dioxide Level 19L, Calcium Level 8.2L, White Blood Count 21.0H, Red Blood Count 4.29, Hemoglobin 13.3, Hematocrit 39.2, Mean Corpuscular Volume 91.5 , Mean Corpuscular Hemoglobin 31.1, Mean Corpuscular Hemoglobin Concent 33.9, Red Cell Distribution Width 16.1H, Platelet Count 286, Neutrophils (%) (Auto) 93.2H, Lymphocytes (%) (Auto) 3.9L, Monocytes (%) (Auto) 1.8, Eosinophils (%) ( Auto) 0.1, Basophils (%) (Auto) 0.2, Neutrophils # (Auto) 19.6H, Lymphocytes # ( Auto) 0.8L, Monocytes # (Auto) 0.4, Eosinophils # (Auto) 0.0, Basophils # (Auto ) 0.0, Large Unclassified Cells % 0.7, Large Unclassified Cells # 0.2 CBC/BMP Laboratory Tests 04/02/17 13:45 Calcium Level 7.8 L 04/02/17 17:48 Calcium Level 7.5 L 04/02/17 21:58 Calcium Level 8.3 L 04/03/17 01:56 Calcium Level 7.8 L 04/03/17 05:38 Red Blood Count 4.29, Mean Corpuscular Volume 91.5, Mean Corpuscular Hemoglobin 31.1, Mean Corpuscular Hemoglobin Concent 33.9, Red Cell Distribution Width 16.1 H, Neutrophils (%) (Auto) 93.2 H, Lymphocytes (%) (Auto) 3.9 L, Monocytes ( %) (Auto) 1.8, Eosinophils (%) (Auto) 0.1, Basophils (%) (Auto) 0.2, Neutrophils # (Auto) 19.6 H, Lymphocytes # (Auto) 0.8 L, Monocytes # (Auto) 0.4 , Eosinophils # (Auto) 0.0, Basophils # (Auto) 0.0, Calcium Level 8.2 L Microbiology Microbiology 04/02/17 Gastrointestinal Tract Panel (PCR) - Final, Complete Clostridium Difficile A/B Attending Note Attending Note Dramatic increase in leukocytosis, will change antibiotic for cdiff to vancomycin. She is on ceftriaxone, initiated by Dr. Agrawal for pyuria. Ideally should be off other antibiotics unless absolutely needed in order to resolve the cdiff. Will repeat u/a by st cath and if pyuria is resolved, will stop Rocephin absent pos blood culture or urine culture or clear evidence of worsening infection in skin. JANET VARGAS PA-C Apr 03, 2017 10:46 Thong Rowe MD Apr 03, 2017 14:19
[2017-04-03] MEDS ORDERED: VANCOMYCIN ORAL SOL 250MG/5ML ORAL SYRINGE PO SCH (18:00)
[2017-04-03] MEDS: NS 1,000 ML IV SCH (18:00)
[2017-04-03] MEDS: LEVEMIR (INSULIN DETEMIR) 1 UNITS/0.01ML SC SCH (21:00)
[2017-04-03] MEDS ORDERED: LEVEMIR (INSULIN DETEMIR) 1 UNITS/0.01ML SC SCH (21:00)
--- NOTE | 2017-04-03 23:42 | IPN ---
DATE: 04/03/2017 SUBJECTIVE: Patient seen and examined at the bedside today, morning, in the intensive care unit (ICU). The patient is clinically getting better. Last 24-hour events were noted. The patient was found to have Clostridium difficile colitis. The patient was started on oral Flagyl. The patient reports slight improvement in her diarrhea. She is off of intravenous (IV) insulin. She is on insulin sliding scale and long-acting insulin at this time. There is slight improvement in the renal function. Creatinine is down to 3.1 today. REVIEW OF SYSTEMS: The patient denies any fever, chills, rigors, headache, nausea, vomiting, chest pain, shortness of breath, pain in abdomen. She does report diarrhea. She reports there is slight improvement in the diarrhea episodes now since yesterday. OBJECTIVE: VITAL SIGNS: Temperature is 97.1 degrees Fahrenheit, blood pressure is 114/58, pulse is 97, respiratory rate of 18, saturating 97% on room air. INTAKE/OUTPUT: Urine output recorded as 2.8 liters yesterday, 1.5 liters so far today since overnight. Weight on the bed scale is 103.7 kg. The patient had 7 bowel movements yesterday and about 8 bowel movements so far today since overnight. PHYSICAL EXAMINATION: GENERAL: The patient is awake, alert, oriented times three, sitting on sofa in no apparent distress. HEAD AND NECK EXAM: Extraocular muscles intact. Pupils equally round and reactive to light. Mucous membranes are moist. Neck is supple. There is no jugular venous distention (JVD). CARDIOVASCULAR: S1, S2, regular rate. No murmur, rub or gallop. RESPIRATORY: Chest is clear to auscultation bilaterally. Bilateral equal air entry. No rales or rhonchi. ABDOMEN: Soft, obese, positive bowel sounds, nontender. No ascites, no organomegaly. MUSCULOSKELETAL: Patient has ulcer on the bilateral lower extremities. Right ulcer is bigger than the left one. There is 1+ edema of the bilateral lower extremities. CENTRAL NERVOUS SYSTEM: No focal neurological deficit. Power is 5/5 in all extremities. SKIN: No rashes and positive ulcerations of lower extremities as mentioned above. PSYCHIATRIC: Normal mood and affect. LAB REVIEW: CBC showed a WBC of 21, hemoglobin 13.3, platelets are 286. BMP showed sodium 139, potassium 4.4, chloride 105, bicarbonate is 19, BUN 62, creatinine is 3.1, calcium is 8.2. Microbiology: Clostridium difficile toxin is positive by PCR. CURRENT INPATIENT MEDICATIONS: The patient's medications were all reviewed by me. She was started on normal saline at 75 mL an hour. Intravenous Rocephin was stopped this morning. Insulin dose has been increased to Levemir 50 units subcutaneously nightly. The patient was initially on Flagyl, and she has been started on oral vancomycin now. ASSESSMENT: A 61-year-old female with a past medical history of chronic kidney disease stage IV, diabetes mellitus type 2, hypertension, morbid obesity, coronary artery disease and congestive heart failure with diastolic dysfunction, admitted to the intensive care unit (ICU) initially with hyperglycemic hyperosmolar nonketotic state. Nephrology service is following the patient for acute kidney injury superimposed on chronic kidney disease. The patient was also found to have Clostridium difficile colitis. PLAN: 1. Acute kidney injury superimposed on chronic kidney disease. It is secondary to a combination of dehydration and volume depletion secondary to osmotic diuresis in a diabetic nonketotic hyperosmolar state and now the patient is having diarrhea because of Clostridium difficile colitis. The patient was restarted on intravenous normal saline at 75 mL an hour. There is slight improvement in the creatinine. Continue the IV fluid hydration. No urgent need of hemodialysis at this time. 2. Nonketotic hyperglycemia. It is secondary to noncompliance with insulin. The patient was not taking her insulin injections. The patient was initially started on IV insulin. She has been switched to long-acting and short-acting insulin regimen. She is still hyperglycemic. Long-acting insulin dose was increased by the primary team. Continue the IV fluid hydration at this time. 3. Clostridium difficile colitis. IV Rocephin was stopped today. It was being given empirically to cover urinary tract infection (UTI). The patient was initially on oral Flagyl. Flagyl has been stopped because the patient kept on having diarrhea. She is currently on oral vancomycin. Vancomycin dose has been changed to 250 mg by mouth every 6 hours. 4. History of diastolic congestive heart failure. The patient's diuretics are on hold because of hyperglycemia, dehydration and diarrhea. 5. Hypertension. Blood pressure is acceptable at this time. Continue current dose of Coreg 6.25 mg by mouth twice a day.
[2017-04-04] MEDS: NS 1,000 ML IV SCH ×2 (01:10→11:59)
[2017-04-04] MEDS: VANCOMYCIN ORAL SOL 250MG/5ML ORAL SYRINGE PO SCH ×5 (01:10→23:43)
[2017-04-04 06:00] VITALS: BP 132/60
[2017-04-04 06:29] LABS: MEAN CORPUSCULAR HEMOGLOBIN 30.1 pg (27.0-33.0); MEAN CORPUSCULAR HGB CONC 33.6 g/dl (32.0-36.5); MEAN CORPUSCULAR VOLUME 89.6 fl (80.0-96.0); RED CELL DISTRIBUTION WIDTH 16.5 % (11.5-14.5)
[2017-04-04] MEDS: HumaLOG INSULIN (NovoLOG) PER UNIT SC SCH ×4 (08:38→20:51)
[2017-04-04] MEDS: NYSTATIN 100,000 UNITS/GM TOPICAL PWD 15 GM TOP SCH ×2 (08:39→20:52)
[2017-04-04] MEDS: HEPARIN SOD (PORCINE) 5000 UNITS/ML VIAL SQ SCH ×2 (08:39→20:49)
[2017-04-04 10:36] LABS: ALBUMIN 1.9 GM/DL (3.2-5.2); CALCIUM LEVEL 7.2 MG/DL (8.5-10.1); CREATININE FOR GFR 2.12 MG/DL (0.55-1.02); GLOMERULAR FILTRATION RATE 25.4 (>51); PHOSPHORUS LEVEL 1.3 MG/DL (2.5-4.9); POTASSIUM SERUM 3.3 MEQ/L (3.5-5.1)
--- NOTE | 2017-04-04 11:21 | IPNPDOC ---
Subjective Date Seen The patient was seen on 04/04/17. Subjective Chief Complaint/HPI The patient is a 61-year-old female admitted with a reason for visit of Diabetic Hyerosmolar Non-Ketotic State. Constitutional: Denies: Chills, Night Sweats ENT: Denies: Head Aches Pulmonary: Denies: Dyspnea, Cough Cardiovascular: Denies: Chest Pain, Palpitations Gastrointestinal: Reports: Diarrhea (some improvment with better control, less urgency.), Denies: Nausea, Abdominal Pain Genitourinary: Denies: Frequency Hematologic: Denies: Bruising Objective Physical Examination General Exam: Positive: Alert, Cooperative, No Acute Distress Eye Exam: Positive: Conjunctiva & lids normal, EOMI ENT Exam: Positive: Atraumatic, Tongue Midline Chest Exam: Positive: Clear to auscultation, Diminished Heart Exam: Positive: Rate Normal, Normal S1, Normal S2 Abdomen Exam: Positive: Normal bowel sounds, Soft, Negative: Tenderness Extremity Exam: Positive: Cyanosis, Edema Skin Exam: Positive: Breakdown (ulcer right lower leg. hydrocel dressing in place.) Psych Exam: Positive: Mental status NL, Oriented x 3 Assessment /Plan Problems (1) Diabetic hyperosmolar non-ketotic state Status: Acute Response to Treatment: Stable, Improving Problem Text: 04/04: sugars still high 200's this am. Levemir 50 last night, so will likely need higher dose going forward. K low this am, Micro K 10 tid added. 04/03 - Rec Levemir 30 units last night, FSBS 344 this morning, will increase to 40 units this evening, cont with SSI, Cons carb diet. 04/02 - Has been on Insulin drip per protocol. BS trending down. Insulin drip stopped. Start SSI. Start Levemir at 30 units - titrate as needed. Getting KCl replacement. Overnight insulin use was only 37 units total to bring down her glucose. secondary to medical non-compliance, has not been taking her long acting insulin for over one month due to inability to afford medications pt NPO q4h BMP-will closely monitor potassium glucose 811 on presentation HgA1C pending UA pending microal ratio 100.3 Have begun fluid hydration and insulin therapy, pt made NPO. (2) HTN (hypertension) Status: Chronic Response to Treatment: Stable Problem Text: 04/02 - BPs stable. Off home Carvedilol, Spironolactone, Torsemide. 143/65 stable Will continue pts home medications but hold on nephrotoxic medications in light of acute on chronic renal failure and worsening GFR and creatine (3) CKD (chronic kidney disease), stage IV Status: Chronic Response to Treatment: Stable Problem Text: 04/02 - Creat 4.03. Nephrology consulted. 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 Last Edited By: Toshia Sauer NP on Oct 02, 2015 12:05 Status: Chronic Response to Treatment: Stable Problem Text: 04/02 - Outpt Torsemide and Spironolactone were held at admission. pt appears euvolemic will continue pts home diuretics (5) Depression Status: Chronic Response to Treatment: Stable Problem Text: 04/02 - Outpt Paxil was held at admission. will continue pt home medications (6) Diabetic ulcer of ankle Status: Acute Response to Treatment: Stable Problem Text: 04/04 WBC I believe was due to C diff. Leg looks stable. 04/02 - Recheck CBC. Discuss with attending. wbc 13.2 no white count morning team may consider wound culture and consult will hold abx for now pt afebrile ulcers b/l LE stage 2 non-oozing pus, nor bleeding. (7) Hyponatremia Status: Acute Response to Treatment: Stable, Improving Problem Text: 04/02 - Na 137. Received IVF. Na 122 pt receiving IV normal saline will adjust up slowly (8) Dehydration Status: Resolved Response to Treatment: Stable Problem Text: pt receiving IV fluid hydration will continue to monitor (9) DVT prophylaxis Status: Acute Response to Treatment: Stable Problem Text: pt will be on heparin (10) C. difficile colitis Status: Acute Response to Treatment: Stable, Improving Discussed With: Nurse, Patient Problem Specific Plan: Monitor Clinically Problem Text: Started on Flagyl 04/02, stools less frequent overnight, monitor sypmtoms. Plan/VTE VTE Prophylaxis Ordered?: Yes Plan/Urinary Catheter Reason for insertion/continuin: Critical Pt monitoring Plan Anticipated Discharge: Home VS, I&O, 24H, Fishbone Vital Signs/I&O Vital Signs Date Time Temp Pulse Resp B/P (MAP) Pulse Ox O2 Delivery O2 Flow Rate FiO2 04/04/17 06:00 96.6 92 18 132/60 (84) 96 Room Air I&O- Last 24 Hours up to 6 AM 04/05/17 06:00 Intake Total 885 ml Output Total 0 ml Balance 885 ml Laboratory Data 24H LABS Laboratory Tests 2 04/03/17 11:49: Bedside Glucose (Misc Panel) 358H 04/03/17 16:47: Bedside Glucose (Misc Panel) 312H 04/03/17 20:43: Bedside Glucose (Misc Panel) 344H 04/04/17 07:35: Bedside Glucose (Misc Panel) 254H 04/04/17 09:22: Blood Urea Nitrogen 42H, Creatinine 2.12H, Sodium Level 141, Potassium Level 3.3 #L, Chloride Level 109H, Carbon Dioxide Level 21, Anion Gap 11, Glomerular Filtration Rate 25.4L, Calcium Level 7.2L, Phosphorus Level 1.3#L, Albumin 1.9L CBC/BMP Laboratory Tests 04/04/17 06:15 Red Blood Count 3.88 L, Mean Corpuscular Volume 89.6, Mean Corpuscular Hemoglobin 30.1, Mean Corpuscular Hemoglobin Concent 33.6, Red Cell Distribution Width 16.5 H 04/04/17 09:22 Anion Gap 11 Microbiology Microbiology 04/02/17 Gastrointestinal Tract Panel (PCR) - Final, Complete Clostridium Difficile A/B Thong Rowe MD Apr 04, 2017 11:21
[2017-04-04] MEDS: POTASSIUM CHLORIDE 10 MEQ SR TABLET PO SCH ×3 (11:55→20:49)
--- NOTE | 2017-04-04 11:57 | IPN ---
DATE: 04/04/2017 SUBJECTIVE: Patient was seen and examined at the bedside today, morning. Patient was started on oral vancomycin because of Clostridium (C) difficile colitis. She was not responding well to the Flagyl tablets. Patient reports that her diarrhea is improving. She continues to be on intravenous (IV) fluids. There is slight improvement in the renal function. Creatinine is down to 2.1 at this time. REVIEW OF SYSTEMS: Patient denies any fever, chills, rigors, headache, nausea or vomiting. She denies any chest pain or shortness of breath. She does report diarrhea, but she reports improving the frequency of diarrhea. Rest of review of systems is negative. OBJECTIVE: VITAL SIGNS: Temperature is 96.6 degrees Fahrenheit, blood pressure is 132/60, pulse is 92, respiratory rate of 18, saturating 96% on room air. INTAKE AND OUTPUT: Urine output recorded as 1.5 liters yesterday, 600 mL so far today since overnight. There were 10 bowel movements yesterday and 4 bowel movements so far today, since overnight. Weight on the bed scale is not available. PHYSICAL EXAMINATION: GENERAL: Patient is awake, alert, oriented times three, laying in bed, in no apparent distress. HEAD AND NECK EXAM: Extraocular muscles intact. Pupils equally round and reactive to light. Mucous membranes are moist. Neck is supple. There is no jugular venous distention (JVD). CARDIOVASCULAR: S1, S2, regular rate. No murmur, rub or gallop. RESPIRATORY: Chest is clear to auscultation bilaterally. Bilateral equal air entry. No rales or rhonchi. ABDOMEN: Is soft, obese. Positive bowel sounds. Nontender. No ascites. No organomegaly. MUSCULOSKELETAL: Patient has ulcers on bilateral lower extremities, right is bigger than left, and she has trace edema of the bilateral lower extremities. CENTRAL NERVOUS SYSTEM: No focal neurological deficit. Power is 5/5 in all extremities. PSYCHIATRIC: Normal mood and affect. LABORATORY REVIEW: CBC showed a WBC of 20, hemoglobin 11.7, platelets are 267. BMP showed sodium 141, potassium 3.3, chloride 109, bicarbonate is 21, BUN is 42, creatinine is 2.1, GFR is 25.4, calcium 7.2, phosphorus is 1.3. CURRENT INPATIENT MEDICATIONS: Patient's medications were all reviewed by me. Vancomycin dose has been changed to 250 mg every 6 hours. Flagyl has been stopped. Insulin Levemir dose was changed to 50 units yesterday. She continues to be on IV normal saline at 75 mL an hour. ASSESSMENT: 61-year-old female with past medical history of chronic kidney disease stage IV, diabetes mellitus type 2, hypertension, morbid obesity, coronary artery disease and congestive heart failure with diastolic dysfunction, admitted to intensive care unit (ICU) initially with hyperglycemic, hyperosmolar and nonketotic state because of noncompliance with insulin regimen. Nephrology service following the patient for management of acute kidney injury superimposed on chronic kidney disease. Patient has developed Clostridium difficile again during this admission. PLAN: 1. Acute kidney injury superimposed on chronic kidney disease. It is secondary to combination of dehydration, volume depletion and diarrhea. Patient was started on IV normal saline. Renal function is improving. Creatinine is down to 2.1 at this time. 2. C diff colitis. Patient is currently on vancomycin 250 mg every 6 hours. Diarrhea frequency is improving now. 3. Insulin-dependent diabetes mellitus. Patient is still hyperglycemic. Continue insulin sliding scale. Levemir coverage was increased to 50 units nightly. Rest of the management is as per primary team.
[2017-04-04] MEDS ORDERED: POTASSIUM PHOSPHATE INJ 15 MMOL in D5W 250 ML IV ONE (13:00)
[2017-04-04 14:00] VITALS: BP 142/64
[2017-04-04] MEDS: LEVEMIR (INSULIN DETEMIR) 1 UNITS/0.01ML SC SCH (20:51)
[2017-04-04 22:00] VITALS: BP 144/65
[2017-04-05] MEDS: NS 1,000 ML IV SCH (02:44)
[2017-04-05] MEDS: VANCOMYCIN ORAL SOL 250MG/5ML ORAL SYRINGE PO SCH ×4 (05:32→23:30)
[2017-04-05 06:00] VITALS: BP 158/72
[2017-04-05 06:20] LABS: MEAN CORPUSCULAR HEMOGLOBIN 29.6 pg (27.0-33.0); MEAN CORPUSCULAR HGB CONC 32.4 g/dl (32.0-36.5); MEAN CORPUSCULAR VOLUME 91.3 fl (80.0-96.0); RED CELL DISTRIBUTION WIDTH 16.8 % (11.5-14.5); WHITE BLOOD COUNT 13.4 K/mm3 (4.0-10.0)
[2017-04-05 06:44] LABS: CALCIUM LEVEL 6.6 MG/DL (8.5-10.1); CREATININE FOR GFR 1.74 MG/DL (0.55-1.02); GLOMERULAR FILTRATION RATE 31.9 (>51); MAGNESIUM LEVEL 2.1 MG/DL (1.8-2.4); POTASSIUM SERUM 3.4 MEQ/L (3.5-5.1)
[2017-04-05] MEDS: HumaLOG INSULIN (NovoLOG) PER UNIT SC SCH ×4 (07:59→20:57)
[2017-04-05] MEDS: HEPARIN SOD (PORCINE) 5000 UNITS/ML VIAL SQ SCH ×2 (08:00→20:56)
[2017-04-05] MEDS: NYSTATIN 100,000 UNITS/GM TOPICAL PWD 15 GM TOP SCH ×2 (08:00→20:58)
[2017-04-05] MEDS: POTASSIUM CHLORIDE 10 MEQ SR TABLET PO SCH ×3 (08:00→20:57)
[2017-04-05 14:00] VITALS: BP 130/82
--- NOTE | 2017-04-05 14:29 | IPN ---
DATE: 04/05/2017 Ms. Juárez is seen this morning on her bedside. She is being treated for Clostridium difficile (C. Diff) colitis. She had acute renal failure which is gradually improving. The patient reports that her diarrhea has improved, and she denies any nausea, vomiting, abdominal pain, fever or chills. She denies any dyspnea, palpitations or increased leg edema. PHYSICAL EXAMINATION: Temperature 97.8 degrees Fahrenheit, heart rate 100 per minute and respiratory rate 20 per minute. Blood pressure 158/72 mmHg and oxygen saturation 98% on room air. Intake and output records from yesterday showed total intake 2600 and output 1025. Her head is atraumatic. Neck is supple and jugular venous distention (JVD) is difficult to be assessed. Pupils are equal and reactive to light and sclerae is anicteric. Ears, nose and throat are unremarkable. Heart exam reveals regular rhythm with tachycardia. Lungs have moderate bilateral air entry without any wheezing or rales. Abdomen is obese, soft and nontender. Bowel sounds are normal. There is no palpable organomegaly. Extremities: Have no cyanosis or clubbing. Lower extremities have trace to 1+ leg edema. Skin has a small ulcer on left fifth finger, which is covered with a scab. On review of labs, today's WBC count is 13.4 which is improved from 20.0 yesterday. Hemoglobin is stable at 11.3 and hematocrit 34.9. Sodium is 146 and potassium 3.4. BUN is down to 33 and creatinine 1.74. Glucose 258 and calcium 6.6. Her phosphorus was only 1.3 yesterday. PROBLEM #1: Acute kidney injury superimposed on chronic kidney disease. Kidney function has improved significantly. Currently she is not receiving intravenous (IV) fluid. The patient reports that her oral intake is adequate and diarrhea has improved. I would recommend to encourage oral intake while we are monitoring her kidney function and electrolytes. PROBLEM #2: Hypernatremia. This is mild and most likely related to diarrhea and IV fluids. She is not receiving normal saline anymore. Hypernatremia is only mild and likely to improve with oral intake. At this point, we will recheck her electrolytes tomorrow morning. PROBLEM #3: Hypokalemia. This is again related to diarrhea and she is receiving oral potassium supplement. Electrolytes will be checked again tomorrow morning. PROBLEM #4: Hypocalcemia. Her calcium level is significantly lower than last 4 days. There is no obvious reason for it. She is completely asymptomatic. We will recheck her renal profile tomorrow morning. PROBLEM #5: Clostridium difficile colitis. The patient is receiving oral vancomycin, and her symptoms have improved. DISPOSITION: At this point, the patient is not medically cleared for discharge as she still has electrolyte abnormalities and will need to be monitored closely.
--- NOTE | 2017-04-05 15:24 | IPNPDOC ---
Subjective Date Seen The patient was seen on 04/05/17. Subjective Chief Complaint/HPI The patient is a 61-year-old female admitted with a reason for visit of Diabetic Hyerosmolar Non-Ketotic State. Events since last encounter Patient states she is feeling better today and is eating normally; she states she has not had diarrhea for the past 3 days. Constitutional: Denies: Chills ENT: Denies: Head Aches Pulmonary: Denies: Dyspnea, Cough Cardiovascular: Denies: Chest Pain Gastrointestinal: Denies: Nausea, Vomiting, Abdominal Pain, Diarrhea Genitourinary: Denies: Dysuria Hematologic: Denies: Bruising, Bleeding Excessively Neurological: Denies: Weakness, Numbness, Confusion Psych: Reports: Mood Normal Objective Physical Examination General Exam: Positive: Alert, Cooperative, No Acute Distress Eye Exam: Positive: Conjunctiva & lids normal, EOMI ENT Exam: Positive: Atraumatic Chest Exam: Positive: Clear to auscultation, Diminished Heart Exam: Positive: Rate Normal, Normal S1, Normal S2 Abdomen Exam: Positive: Normal bowel sounds, Soft, Negative: Tenderness Extremity Exam: Positive: Cyanosis, Edema Skin Exam: Positive: Breakdown (ulcer right lower leg. hydrocel dressing in place.) Psych Exam: Positive: Mental status NL, Oriented x 3 Assessment /Plan Problems (1) Diabetic hyperosmolar non-ketotic state Status: Acute Response to Treatment: Stable, Improving Problem Text: 04/05 - Glucoses persistently high; will increase to 60 units tonight 04/04: Levemir increased to 50 units 04/03 - Levemir increased to 40 units 04/02 - Insulin drip stopped. Start SSI. Start Levemir at 30 units - titrate as needed. Secondary to medical non-compliance, has not been taking her long acting insulin for over one month due to inability to afford medications (2) C. difficile colitis Status: Acute Response to Treatment: Stable, Improving Discussed With: Patient Problem Specific Plan: Monitor Clinically Problem Text: Started on Flagyl 04/02; Flagyl was discontinued and vancomycin was started on 04/03/17 by Nephrology. She had not had any loose stools since vancomycin was started. (3) CKD (chronic kidney disease), stage IV Status: Chronic Response to Treatment: Stable Problem Text: Cr is trending down. Acute worsening of CKD was likely due to C. diff and HHNK. She was initially on IVF, but this has been discontinued and she is taking PO hydration. Nephrology also following. (4) HTN (hypertension) Status: Chronic Response to Treatment: Stable Problem Text: BPs stable. Off home Carvedilol, Spironolactone, Torsemide. (5) Diastolic CHF Permanent Comment: Echo: 11/28/2014: LVEF 65% Dr. Quintanilla is [employer]. Last Edited By: Toshia Sauer NP on Oct 02, 2015 12:05 Status: Chronic Response to Treatment: Stable Problem Text: Outpt Torsemide and Spironolactone were held at admission. She appears euvolemic. (6) Diabetic ulcer of ankle Status: Acute Response to Treatment: Stable Problem Text: Leg is stable; elevated WBCs during this admission were likely due to C. diff. (7) Hypernatremia Status: Acute Problem Text: Likely iatrogenic; IVF stopped and will monitor. (8) Hypokalemia Status: Acute Response to Treatment: Stable Problem Text: K+ is persistently low; KCl increased to 20 mEq TID today. (9) Hypocalcemia Status: Acute Problem Text: Ca has been trending down; etiology is unclear; follow daily. (10) Hyponatremia Status: Resolved Response to Treatment: Stable, Improving Problem Text: Initially Na was 122; increased with IVF. (11) Dehydration Status: Resolved Response to Treatment: Stable Problem Text: pt receiving IV fluid hydration will continue to monitor (12) DVT prophylaxis Status: Acute Response to Treatment: Stable Problem Text: pt will be on heparin (13) Depression Status: Chronic Response to Treatment: Stable Problem Text: Outpt Paxil was held at admission. Plan/VTE VTE Prophylaxis Ordered?: Yes Plan/Urinary Catheter Reason for insertion/continuin: Critical Pt monitoring Plan Anticipated Discharge: Home VS, I&O, 24H, Fishbone Vital Signs/I&O Vital Signs Date Time Temp Pulse Resp B/P (MAP) Pulse Ox O2 Delivery O2 Flow Rate FiO2 04/05/17 14:00 96.9 82 17 130/82 (98) 97 Room Air I&O- Last 24 Hours up to 6 AM 04/06/17 06:00 Intake Total 600 ml Output Total 200 ml Balance 400 ml Laboratory Data 24H LABS Laboratory Tests 2 04/04/17 16:51: Bedside Glucose (Misc Panel) 288H 04/04/17 20:40: Bedside Glucose (Misc Panel) 315H 04/05/17 06:07: Anion Gap 9, Glomerular Filtration Rate 31.9L, Blood Urea Nitrogen 33H, Creatinine 1.74H, Sodium Level 146H, Potassium Level 3.4L, Chloride Level 114H, Carbon Dioxide Level 23, Calcium Level 6.6L, Magnesium Level 2.1 04/05/17 11:26: Bedside Glucose (Misc Panel) 228H CBC/BMP Laboratory Tests 04/05/17 06:07 Red Blood Count 3.83 L, Mean Corpuscular Volume 91.3, Mean Corpuscular Hemoglobin 29.6, Mean Corpuscular Hemoglobin Concent 32.4, Red Cell Distribution Width 16.8 H, Calcium Level 6.6 L Microbiology Microbiology 04/02/17 Gastrointestinal Tract Panel (PCR) - Final, Complete Clostridium Difficile A/B YANE LEW MD Apr 05, 2017 15:24
[2017-04-05] MEDS ORDERED: LEVEMIR (INSULIN DETEMIR) 1 UNITS/0.01ML SC SCH (21:00)
[2017-04-05 22:00] VITALS: BP 158/68
[2017-04-06] MEDS: VANCOMYCIN ORAL SOL 250MG/5ML ORAL SYRINGE PO SCH (05:33)
[2017-04-06 06:00] VITALS: BP 140/61
[2017-04-06 06:35] LABS: CREATININE FOR GFR 1.75 MG/DL (0.55-1.02); GLOMERULAR FILTRATION RATE 31.7 (>51)
[2017-04-06 06:38] LABS: MEAN CORPUSCULAR HEMOGLOBIN 30.5 pg (27.0-33.0); MEAN CORPUSCULAR HGB CONC 32.8 g/dl (32.0-36.5); MEAN CORPUSCULAR VOLUME 92.9 fl (80.0-96.0); RED CELL DISTRIBUTION WIDTH 17.1 % (11.5-14.5); WHITE BLOOD COUNT 13.2 K/mm3 (4.0-10.0)
[2017-04-06 07:00] LABS: CALCIUM LEVEL 7.8 MG/DL (8.5-10.1)
[2017-04-06] MEDS: HEPARIN SOD (PORCINE) 5000 UNITS/ML VIAL SQ SCH (09:16)
[2017-04-06] MEDS: POTASSIUM CHLORIDE 10 MEQ SR TABLET PO SCH (09:16)
[2017-04-06] MEDS: HumaLOG INSULIN (NovoLOG) PER UNIT SC SCH (09:17)
[2017-04-06] MEDS: NYSTATIN 100,000 UNITS/GM TOPICAL PWD 15 GM TOP SCH (09:18)
--- NOTE | 2017-04-06 16:35 | DSES ---
DATE OF ADMISSION: 04/01/2017 DATE OF DISCHARGE: 04/06/2017 (Patient left AGAINST MEDICAL ADVICE) PRIMARY CARE PHYSICIAN: Lonnie Garnett MD PRINCIPAL DIAGNOSES: 1. Diabetic hyperosmolar nonketotic state. 2. Clostridium (C) difficile colitis. 3. Acute kidney disease on chronic kidney disease stage IV. 4. Hypertension. 5. Diastolic congestive heart failure. 6. Diabetic ulcer of ankle. 7. Electrolyte abnormalities including hyponatremia, hypernatremia, hypokalemia , and hypocalcemia. 8. Dehydration. 9. Depression. SUMMARY STATEMENT: This is a 61-year-old woman with a history of diabetes who presented to the emergency department with generalized weakness. She reported that she had not been on her long-acting insulin for a month prior to admission because she had difficulty getting insurance coverage for insulin and could not afford it out of pocket. She was found to be in hyperosmolar hyperglycemic nonketotic syndrome (HHNK) and was initially placed on an insulin drip and then transitioned to Levemir, which will hopefully be more affordable for her. Levemir was titrated over several days. On evening prior to her last day of hospitalization, she received 60 units of Levemir. This may need to be further titrated. She follows with [facility]. Patient was also found to be dehydrated and to have acute kidney injury on her chronic kidney disease stage IV. Her dehydration and kidney disease improved with IV fluid hydration and then she was placed on oral hydration. Nephrology did see her during her hospitalization. She was also noted to have C. difficile colitis and has had this in the past. She was initially placed on Flagyl, but this was ineffective for her symptoms and so she was transitioned to vancomycin on 04/03/2017. Prior to last day of admission, she had had no loose stools for 3 days. Our plan had been for her to stay an additional day so that we could receive prior authorization for vancomycin and discharge her on vancomycin on 04/07/2017, but she refused to stay for this. She stated that she wanted to go home to be with her animals and to watch a [id number] wrestling match this evening. I had an extensive discussion with her in which I recommended that she stay and discussed the risks of leaving including risk of worsening C. difficile, recurrent dehydration, and recurrence of diabetic hyperosmolar nonketotic state. I advised her that she could experience permanent disability or related to complications from these. She verbalized understanding and still elected to LEAVE AGAINST MEDICAL ADVICE. She states she has Levemir at home and plans to go home and take 60 units this evening. She states she thinks she may also have some oral vancomycin at home. I advised her to call Dr. Garnett's office when they open on Friday morning to obtain a followup appointment and to see if vancomycin can be arranged for her on an outpatient basis through the office. CONDITION: Stable. PROGNOSIS: Fair. ACTIVITY: As tolerated. DIET: Carbohydrate consistent diet. PENDING STUDIES: None. HOSPITAL COURSE: 1. Diabetic hyperosmolar nonketotic state: Patient was initially treated with an insulin drip and then transitioned to Levemir which was titrated. On evening prior to discharge, she received 60 units. She likely needs further titration of her Levemir as glucose was in the 200s on this dose. She states she has Levemir at home and can use this until she is seen in the office. It was recommended that she take 60 units at nighttime to prevent recurrence of her diabetic hyperosmolar nonketotic state. 2. C. difficile colitis: Patient was initially treated with Flagyl, but continued to have diarrhea. Flagyl was stopped and vancomycin started on 04/03/2017, and she had a rapid recovery with this. She had no loose bowel movements for the 3 days prior to LEAVING AGAINST MEDICAL ADVICE. We will try to arrange for oral vancomycin as an outpatient. Patient was counseled that C. difficile can recur or get worse if she is not taking vancomycin. 3. Chronic kidney disease stage IV: Patient had acute kidney injury likely due to dehydration related to problems #1 and #2 above. She was initially on IV fluid, but then was able to maintain hydration with oral intake. Nephrology was consulted and followed the patient during her stay. Kidney function had improved the day she LEFT AGAINST MEDICAL ADVICE, but was not yet back to baseline. 4. Hypertension: Patient's blood pressures were stable with her home antihypertensives of carvedilol, spironolactone, and torsemide being held. She will need to have her blood pressure checked in the office soon to determine if these can be restarted. 5. Diastolic congestive heart failure (CHF): Patient's torsemide and spironolactone were held upon admission due to chronic kidney disease and patient appeared euvolemic throughout her stay. 6. Diabetic ulcer of ankle: Her leg was stable. 7. Electrolyte abnormalities: Patient initially was hyponatremic and then became hypernatremic after receiving IV fluid. This had resolved as of the morning of her last day of admission. Patient was also noted to have low potassium, likely due to insulin use and diarrhea. She is on potassium as an outpatient and will resume her outpatient dose upon leaving. 8. Hypocalcemia: This is a new problem and etiology of this is unclear. This will need to be followed as an outpatient. JAMIE
== END 2017-04-06 12:00 | disposition left against medical advice (07) | DRG 638 ==
LOC: M ED 14:05 → M ED INP 17:43 → M ICU 20:34 → M MSPAV 04-03 12:47
PROVIDERS: ADMIT General Practice; ATTEND Family Medicine
DX: E11.00 Type 2 diabetes mellitus with hyperosmolarity without nonketotic hyperglycemic-hyperosmolar coma (NKHHC) (principal); N18.4 Chronic kidney disease, stage 4 (severe); I50.32 Chronic diastolic (congestive) heart failure; N17.9 Acute kidney failure, unspecified; E87.0 Hyperosmolality and hypernatremia; E87.1 Hypo-osmolality and hyponatremia; A04.7 Enterocolitis due to Clostridium difficile; I13.0 Hypertensive heart and chronic kidney disease with heart failure and stage 1 through stage 4 chronic kidney disease, or unspecified chronic kidney disease; L97.309 Non-pressure chronic ulcer of unspecified ankle with unspecified severity; E11.622 Type 2 diabetes mellitus with other skin ulcer; E87.6 Hypokalemia; E83.51 Hypocalcemia; E86.0 Dehydration; Z79.82 Long term (current) use of aspirin; Z79.899 Other long term (current) drug therapy; Z79.4 Long term (current) use of insulin; E66.01 Morbid (severe) obesity due to excess calories; I25.10 Atherosclerotic heart disease of native coronary artery without angina pectoris; F32.9 Major depressive disorder, single episode, unspecified; E78.5 Hyperlipidemia, unspecified; M54.5 Low back pain; E11.40 Type 2 diabetes mellitus with diabetic neuropathy, unspecified; E11.21 Type 2 diabetes mellitus with diabetic nephropathy; E11.319 Type 2 diabetes mellitus with unspecified diabetic retinopathy without macular edema

== ENCOUNTER 2017-11-11 16:43 | Inpatient (IN) | payer MEDICARE ==
[2017-11-11 18:07] LABS: BASO % 0.2 % (0.0-1.0); EOS # 0.1 10^3/uL (0.0-0.50); EOS % 0.8 % (0.0-3.0); HEMATOCRIT 37.5 % (36.0-47.0); HEMOGLOBIN 11.7 g/dl (12.0-15.5); IMMATURE GRANULOCYTE % 0.4 % (0-3.0); LYMPH % 7.9 % (24.0-44.0); MEAN CORPUSCULAR HEMOGLOBIN 27.9 pg (27.0-33.0); MEAN CORPUSCULAR HGB CONC 31.2 g/dl (32.0-36.5); MEAN CORPUSCULAR VOLUME 89.3 fl (80.0-96.0); MONO # 0.8 10^3/uL (0.0-0.8); MONO % 6.2 % (0.0-5.0); NEUTROPHILS # 10.3 10^3/uL (1.8-7.7); NEUTROPHILS % 84.5 % (36.0-66.0); PLATELET COUNT, AUTOMATED 373 10^3/uL (150-450); RED CELL DISTRIBUTION WIDTH 16.6 % (11.5-14.5); WHITE BLOOD COUNT 12.2 10^3/uL (4.0-10.0)
[2017-11-11] MEDS: NS 1,000 ML IV (18:22)
[2017-11-11 18:33] LABS: INR 1.07
[2017-11-11 18:34] LABS: PARTIAL THROMBOPLASTIN TIME 41.2 SECONDS (26.8-37.9)
[2017-11-11 18:36] LABS: LACTIC ACID SEPSIS PROTOCOL 1.6 MMOL/L (0.4-2.0)
[2017-11-11 18:37] LABS: ALBUMIN 1.9 GM/DL (3.2-5.2); ALBUMIN/GLOBULIN RATIO 0.39 (1.00-1.93); ALKALINE PHOSPHATASE 184 U/L (45-117); ALT/SGPT 18 U/L (12-78); AMYLASE 25 U/L (25-115); ANION GAP 12 MEQ/L (8-16); AST/SGOT 20 U/L (7-37); BILIRUBIN,DIRECT 0.1 MG/DL (0.0-0.2); BILIRUBIN,TOTAL 0.3 MG/DL (0.2-1.0); BLOOD UREA NITROGEN 41 MG/DL (7-18); CALCIUM LEVEL 7.3 MG/DL (8.5-10.1); CARBON DIOXIDE LEVEL 24 MEQ/L (21-32); CHLORIDE LEVEL 101 MEQ/L (98-107); CK-MB VALUE MASS 1.4 NG/ML (<3.6); CPK CREATINE PHOSPHOKINASE 22 U/L (26-192); CREATININE FOR GFR 5.65 MG/DL (0.55-1.30); GLOMERULAR FILTRATION RATE 8.2 (>51); GLUCOSE, FASTING 180 MG/DL (70-100); LIPASE 315 U/L (73-393); MB/CK RELATIVE INDEX 6.36 (< OR =4); SODIUM LEVEL 137 MEQ/L (136-145); TOTAL PROTEIN 6.8 GM/DL (6.4-8.2); TROPONIN I 0.15 NG/ML (< 0.10)
[2017-11-11] MEDS: POTASSIUM CHLORIDE 10 MEQ SR TABLET PO (19:30)
[2017-11-11 19:43] LABS: MAGNESIUM LEVEL 1.8 MG/DL (1.8-2.4)
[2017-11-11] MEDS: CYCLOBENZAPRINE 10 MG TAB PO (21:00)
[2017-11-11] MEDS: PREGABALIN 75 MG CAP(LYRICA) PO (21:00)
[2017-11-11] MEDS: PARoxetine 20 MG TAB PO (21:00)
[2017-11-11] MEDS: AMITRIPTYLINE 25 MG TAB PO (21:00)
[2017-11-11] MEDS: PARoxetine 10MG TABLET PO (21:00)
[2017-11-11] MEDS ORDERED: GLUCOSE 4 GM CHEW TABLET PO (21:15)
[2017-11-11] MEDS ORDERED: GLUCAGON FOR INJ 1 MG VIAL (J1610) SC (21:15)
[2017-11-11 23:10] LABS: BEDSIDE GLUCOSE 152 MG/DL (70-105)
[2017-11-11] MEDS: LEVEMIR (INSULIN DETEMIR) 1 UNITS/0.01ML SC (23:21)
[2017-11-11] MEDS: ATORVASTATIN 20 MG TAB PO (23:23)
[2017-11-11] MEDS: OMEPRAZOLE 20 MG CAP PO (23:24)
[2017-11-11] MEDS: HumaLOG INSULIN (NovoLOG) PER UNIT SC (23:55)
[2017-11-11 23:56] LABS: BEDSIDE GLUCOSE 156 MG/DL (70-105)
[2017-11-12] MEDS: NS 1,000 ML IV ×2 (00:34→13:54)
[2017-11-12] MEDS: VANCOMYCIN ORAL SOL 250MG/5ML ORAL SYRINGE PO ×5 (00:47→23:14)
[2017-11-12] MEDS: metroNIDAZOLE 500 MG in APPROPRIATE DILUENT 1 EA IV ×4 (00:48→23:14)
[2017-11-12] MEDS: HumaLOG INSULIN (NovoLOG) PER UNIT SC ×3 (06:00→17:23)
[2017-11-12] MEDS: HEPARIN SOD (PORCINE) 5000 UNITS/ML VIAL SC ×3 (06:13→21:42)
[2017-11-12 06:24] LABS: BASO % 0.2 % (0.0-1.0); EOS # 0.1 10^3/uL (0.0-0.50); EOS % 1.1 % (0.0-3.0); HEMOGLOBIN 10.1 g/dl (12.0-15.5); IMMATURE GRANULOCYTE % 0.3 % (0-3.0); LYMPH # 0.9 10^3/uL (1.5-4.5); LYMPH % 7.5 % (24.0-44.0); MEAN CORPUSCULAR HEMOGLOBIN 28.5 pg (27.0-33.0); MEAN CORPUSCULAR HGB CONC 31.6 g/dl (32.0-36.5); MEAN CORPUSCULAR VOLUME 90.4 fl (80.0-96.0); MONO # 0.9 10^3/uL (0.0-0.8); MONO % 7.2 % (0.0-5.0); NEUTROPHILS # 10.1 10^3/uL (1.8-7.7); NEUTROPHILS % 83.7 % (36.0-66.0); PLATELET COUNT, AUTOMATED 360 10^3/uL (150-450); RED BLOOD COUNT 3.54 10^6/uL (4.00-5.40); RED CELL DISTRIBUTION WIDTH 16.6 % (11.5-14.5); WHITE BLOOD COUNT 12.1 10^3/uL (4.0-10.0)
[2017-11-12 06:51] LABS: ANION GAP 11 MEQ/L (8-16); BLOOD UREA NITROGEN 40 MG/DL (7-18); CARBON DIOXIDE LEVEL 21 MEQ/L (21-32); CHLORIDE LEVEL 108 MEQ/L (98-107); CREATININE FOR GFR 5.49 MG/DL (0.55-1.30); GLOMERULAR FILTRATION RATE 8.5 (>51); POTASSIUM SERUM 2.9 MEQ/L (3.5-5.1); SODIUM LEVEL 140 MEQ/L (136-145)
[2017-11-12 06:54] LABS: GLUCOSE, FASTING 33 MG/DL (70-100)
[2017-11-12] MEDS: DEXTROSE 50% 50 ML SYRINGE IV (06:59)
[2017-11-12 07:16] LABS: BEDSIDE GLUCOSE 111 MG/DL (70-105)
[2017-11-12] MEDS: FERROUS SULFATE 325MG TAB PO ×2 (08:58→21:43)
[2017-11-12] MEDS: OMEPRAZOLE 20 MG CAP PO ×2 (08:58→21:43)
[2017-11-12] MEDS: LACTOBACILLUS ACIDOPHILUS CAP (BACID) PO ×3 (08:58→17:44)
[2017-11-12] MEDS: ASPIRIN 81 MG CHEW TABLET PO (08:58)
[2017-11-12] MEDS: MULTIVITAMINS/MINERALS THERAP 1 TAB PO (08:58)
[2017-11-12] MEDS: PREGABALIN 75 MG CAP(LYRICA) PO ×2 (08:58→21:43)
[2017-11-12] MEDS: POTASSIUM CHLORIDE 10 MEQ SR TABLET PO (08:58)
[2017-11-12] MEDS: COSOPT OCUMETER PLUS 10ML (DORZOLAMIDE/TIMOLOL) OU ×2 (09:00→21:42)
[2017-11-12] MEDS: HEPARIN 1,000 UNITS/ML 10ML VIAL (FOR RADIOLOGY& DIALYSIS ONLY) XX (11:00)
[2017-11-12] MEDS: HEPARIN 1,000 UNITS/ML 10ML VIAL (FOR RADIOLOGY& DIALYSIS ONLY) IV (11:00)
[2017-11-12 13:50] LABS: BEDSIDE GLUCOSE 74 MG/DL (70-105)
[2017-11-12 17:24] LABS: BEDSIDE GLUCOSE 88 MG/DL (70-105)
[2017-11-12 21:08] LABS: BEDSIDE GLUCOSE 112 MG/DL (70-105)
[2017-11-12] MEDS: CYCLOBENZAPRINE 10 MG TAB PO (21:43)
[2017-11-12] MEDS: PARoxetine 10MG TABLET PO (21:43)
[2017-11-12] MEDS: PARoxetine 20 MG TAB PO (21:43)
[2017-11-12] MEDS: LATANOPROST 0.005% OPHTH SOLN 2.5 ML OU (21:43)
[2017-11-12] MEDS: AMITRIPTYLINE 25 MG TAB PO (21:43)
[2017-11-12] MEDS: ATORVASTATIN 20 MG TAB PO (21:44)
[2017-11-13 00:47] LABS: BEDSIDE GLUCOSE 99 MG/DL (70-105)
[2017-11-13] MEDS: HumaLOG INSULIN (NovoLOG) PER UNIT SC ×4 (06:00→17:41)
[2017-11-13] MEDS: COSOPT OCUMETER PLUS 10ML (DORZOLAMIDE/TIMOLOL) OU ×2 (06:09→22:30)
[2017-11-13] MEDS: HEPARIN SOD (PORCINE) 5000 UNITS/ML VIAL SC ×3 (06:10→22:28)
[2017-11-13] MEDS: VANCOMYCIN ORAL SOL 250MG/5ML ORAL SYRINGE PO ×4 (06:10→22:28)
[2017-11-13] MEDS: ASPIRIN 81 MG CHEW TABLET PO (06:10)
[2017-11-13] MEDS: LACTOBACILLUS ACIDOPHILUS CAP (BACID) PO ×3 (06:10→17:42)
[2017-11-13] MEDS: metroNIDAZOLE 500 MG in APPROPRIATE DILUENT 1 EA IV (06:10)
[2017-11-13] MEDS: OMEPRAZOLE 20 MG CAP PO ×2 (06:11→22:29)
[2017-11-13] MEDS: MULTIVITAMINS/MINERALS THERAP 1 TAB PO (06:11)
[2017-11-13] MEDS: PREGABALIN 75 MG CAP(LYRICA) PO ×2 (06:11→22:29)
[2017-11-13] MEDS: FERROUS SULFATE 325MG TAB PO ×2 (06:11→22:29)
[2017-11-13 06:26] LABS: BASO % 0.3 % (0.0-1.0); EOS # 0.3 10^3/uL (0.0-0.50); EOS % 3.3 % (0.0-3.0); HEMATOCRIT 35.8 % (36.0-47.0); HEMOGLOBIN 11.2 g/dl (12.0-15.5); IMMATURE GRANULOCYTE % 0.5 % (0-3.0); LYMPH # 1.6 10^3/uL (1.5-4.5); LYMPH % 18.4 % (24.0-44.0); MEAN CORPUSCULAR HEMOGLOBIN 28.1 pg (27.0-33.0); MEAN CORPUSCULAR HGB CONC 31.3 g/dl (32.0-36.5); MEAN CORPUSCULAR VOLUME 89.7 fl (80.0-96.0); MONO # 0.7 10^3/uL (0.0-0.8); MONO % 8.6 % (0.0-5.0); NEUTROPHILS # 5.9 10^3/uL (1.8-7.7); NEUTROPHILS % 68.9 % (36.0-66.0); PLATELET COUNT, AUTOMATED 279 10^3/uL (150-450); RED BLOOD COUNT 3.99 10^6/uL (4.00-5.40); RED CELL DISTRIBUTION WIDTH 16.8 % (11.5-14.5); WHITE BLOOD COUNT 8.6 10^3/uL (4.0-10.0)
[2017-11-13 06:38] LABS: ANION GAP 6 MEQ/L (8-16); BLOOD UREA NITROGEN 11 MG/DL (7-18); CALCIUM LEVEL 7.4 MG/DL (8.5-10.1); CARBON DIOXIDE LEVEL 26 MEQ/L (21-32); CHLORIDE LEVEL 112 MEQ/L (98-107); CREATININE FOR GFR 2.64 MG/DL (0.55-1.30); GLOMERULAR FILTRATION RATE 19.7 (>51); GLUCOSE, FASTING 88 MG/DL (70-100); POTASSIUM SERUM 3.1 MEQ/L (3.5-5.1); SODIUM LEVEL 144 MEQ/L (136-145)
[2017-11-13 06:41] LABS: BEDSIDE GLUCOSE 106 MG/DL (70-105)
[2017-11-13] MEDS: POTASSIUM CHLORIDE 10% LIQ 20 MEQ/15 ML UDC PO (10:17)
[2017-11-13 11:51] LABS: BEDSIDE GLUCOSE 198 MG/DL (70-105)
[2017-11-13 17:34] LABS: BEDSIDE GLUCOSE 107 MG/DL (70-105)
[2017-11-13] MEDS: PARoxetine 10MG TABLET PO (22:28)
[2017-11-13] MEDS: CYCLOBENZAPRINE 10 MG TAB PO (22:29)
[2017-11-13] MEDS: AMITRIPTYLINE 25 MG TAB PO (22:29)
[2017-11-13] MEDS: PARoxetine 20 MG TAB PO (22:29)
[2017-11-13] MEDS: ATORVASTATIN 20 MG TAB PO (22:29)
[2017-11-13] MEDS: LATANOPROST 0.005% OPHTH SOLN 2.5 ML OU (22:30)
[2017-11-13 22:35] LABS: BEDSIDE GLUCOSE 151 MG/DL (70-105)
[2017-11-14 00:18] LABS: BEDSIDE GLUCOSE 140 MG/DL (80-115)
[2017-11-14 06:11] LABS: BASO % 0.4 % (0.0-1.0); EOS # 0.3 10^3/uL (0.0-0.50); HEMATOCRIT 35.3 % (36.0-47.0); HEMOGLOBIN 10.8 g/dl (12.0-15.5); IMMATURE GRANULOCYTE % 0.9 % (0-3.0); LYMPH # 1.5 10^3/uL (1.5-4.5); MEAN CORPUSCULAR HEMOGLOBIN 28.1 pg (27.0-33.0); MEAN CORPUSCULAR HGB CONC 30.6 g/dl (32.0-36.5); MEAN CORPUSCULAR VOLUME 91.7 fl (80.0-96.0); MONO # 0.6 10^3/uL (0.0-0.8); NEUTROPHILS # 6.6 10^3/uL (1.8-7.7); NEUTROPHILS % 72.7 % (36.0-66.0); PLATELET COUNT, AUTOMATED 271 10^3/uL (150-450); RED BLOOD COUNT 3.85 10^6/uL (4.00-5.40); RED CELL DISTRIBUTION WIDTH 17.2 % (11.5-14.5); WHITE BLOOD COUNT 9.1 10^3/uL (4.0-10.0)
[2017-11-14 06:14] LABS: BEDSIDE GLUCOSE 131 MG/DL (80-115)
[2017-11-14] MEDS: COSOPT OCUMETER PLUS 10ML (DORZOLAMIDE/TIMOLOL) OU ×2 (06:24→21:24)
[2017-11-14] MEDS: HumaLOG INSULIN (NovoLOG) PER UNIT SC ×4 (06:24→18:21)
[2017-11-14] MEDS: LACTOBACILLUS ACIDOPHILUS CAP (BACID) PO ×3 (06:25→18:21)
[2017-11-14] MEDS: FERROUS SULFATE 325MG TAB PO ×2 (06:25→21:23)
[2017-11-14] MEDS: VANCOMYCIN ORAL SOL 250MG/5ML ORAL SYRINGE PO ×3 (06:25→18:21)
[2017-11-14] MEDS: ASPIRIN 81 MG CHEW TABLET PO (06:25)
[2017-11-14] MEDS: HEPARIN SOD (PORCINE) 5000 UNITS/ML VIAL SC ×3 (06:25→21:23)
[2017-11-14] MEDS: MULTIVITAMINS/MINERALS THERAP 1 TAB PO (06:25)
[2017-11-14] MEDS: PREGABALIN 75 MG CAP(LYRICA) PO ×2 (06:25→21:23)
[2017-11-14] MEDS: OMEPRAZOLE 20 MG CAP PO (06:25)
[2017-11-14 06:28] LABS: ANION GAP 8 MEQ/L (8-16); BLOOD UREA NITROGEN 15 MG/DL (7-18); CALCIUM LEVEL 7.1 MG/DL (8.8-10.2); CARBON DIOXIDE LEVEL 24 MEQ/L (21-32); CHLORIDE LEVEL 112 MEQ/L (98-107); CREATININE FOR GFR 3.61 MG/DL (0.55-1.30); GLOMERULAR FILTRATION RATE 13.7 (>45); GLUCOSE, FASTING 107 MG/DL (70-100); POTASSIUM SERUM 3.6 MEQ/L (3.5-5.1); SODIUM LEVEL 144 MEQ/L (136-145)
[2017-11-14 11:01] LABS: PHOSPHORUS LEVEL 1.6 MG/DL (2.5-4.9)
[2017-11-14 11:36] LABS: PTH INTACT 35.6 PG/ML (18.5-88.0)
[2017-11-14] MEDS: HEPARIN 1,000 UNITS/ML 10ML VIAL (FOR RADIOLOGY& DIALYSIS ONLY) IV (13:32)
[2017-11-14 13:35] LABS: BEDSIDE GLUCOSE 78 MG/DL (80-115)
[2017-11-14 17:20] LABS: BEDSIDE GLUCOSE 127 MG/DL (80-115)
[2017-11-14] MEDS: SANTYL OINT 30GM TOP (18:22)
[2017-11-14] MEDS: AMITRIPTYLINE 25 MG TAB PO (21:23)
[2017-11-14] MEDS: ATORVASTATIN 20 MG TAB PO (21:23)
[2017-11-14] MEDS: CYCLOBENZAPRINE 10 MG TAB PO (21:23)
[2017-11-14] MEDS: PARoxetine 20 MG TAB PO (21:24)
[2017-11-14] MEDS: LATANOPROST 0.005% OPHTH SOLN 2.5 ML OU (21:24)
[2017-11-14] MEDS: PARoxetine 10MG TABLET PO (21:24)
[2017-11-15 00:11] LABS: BEDSIDE GLUCOSE 241 MG/DL (80-115)
[2017-11-15] MEDS: HumaLOG INSULIN (NovoLOG) PER UNIT SC ×4 (00:20→17:17)
[2017-11-15] MEDS: VANCOMYCIN ORAL SOL 250MG/5ML ORAL SYRINGE PO ×4 (00:20→17:17)
[2017-11-15] MEDS: HEPARIN SOD (PORCINE) 5000 UNITS/ML VIAL SC ×3 (06:11→21:29)
[2017-11-15 06:12] LABS: BASO % 0.3 % (0.0-1.0); EOS # 0.2 10^3/uL (0.0-0.50); EOS % 1.9 % (0.0-3.0); HEMATOCRIT 34.2 % (36.0-47.0); HEMOGLOBIN 10.3 g/dl (12.0-15.5); IMMATURE GRANULOCYTE % 1.5 % (0-3.0); LYMPH % 19.9 % (24.0-44.0); MEAN CORPUSCULAR HEMOGLOBIN 27.7 pg (27.0-33.0); MEAN CORPUSCULAR HGB CONC 30.1 g/dl (32.0-36.5); MEAN CORPUSCULAR VOLUME 91.9 fl (80.0-96.0); MONO # 0.9 10^3/uL (0.0-0.8); MONO % 8.9 % (0.0-5.0); NEUTROPHILS # 6.6 10^3/uL (1.8-7.7); NEUTROPHILS % 67.5 % (36.0-66.0); PLATELET COUNT, AUTOMATED 220 10^3/uL (150-450); RED BLOOD COUNT 3.72 10^6/uL (4.00-5.40); RED CELL DISTRIBUTION WIDTH 17.2 % (11.5-14.5); WHITE BLOOD COUNT 9.8 10^3/uL (4.0-10.0)
[2017-11-15 06:40] LABS: ANION GAP 6 MEQ/L (8-16); BLOOD UREA NITROGEN 7 MG/DL (7-18); CALCIUM LEVEL 7.6 MG/DL (8.8-10.2); CARBON DIOXIDE LEVEL 27 MEQ/L (21-32); CHLORIDE LEVEL 107 MEQ/L (98-107); CREATININE FOR GFR 2.31 MG/DL (0.55-1.30); GLOMERULAR FILTRATION RATE 22.9 (>45); GLUCOSE, FASTING 136 MG/DL (70-100); POTASSIUM SERUM 3.8 MEQ/L (3.5-5.1); SODIUM LEVEL 140 MEQ/L (136-145)
[2017-11-15] MEDS: PREGABALIN 75 MG CAP(LYRICA) PO ×2 (09:10→20:37)
[2017-11-15] MEDS: FERROUS SULFATE 325MG TAB PO ×2 (09:10→20:37)
[2017-11-15] MEDS: ASPIRIN 81 MG CHEW TABLET PO (09:10)
[2017-11-15] MEDS: MULTIVITAMINS/MINERALS THERAP 1 TAB PO (09:10)
[2017-11-15] MEDS: LACTOBACILLUS ACIDOPHILUS CAP (BACID) PO ×3 (09:10→17:17)
[2017-11-15] MEDS: COSOPT OCUMETER PLUS 10ML (DORZOLAMIDE/TIMOLOL) OU ×2 (09:11→20:38)
[2017-11-15] MEDS: SANTYL OINT 30GM TOP (09:11)
[2017-11-15 10:19] LABS: MAGNESIUM LEVEL 1.7 MG/DL (1.8-2.4)
[2017-11-15 12:46] LABS: BEDSIDE GLUCOSE 168 MG/DL (80-115)
[2017-11-15 17:21] LABS: BEDSIDE GLUCOSE 177 MG/DL (80-115)
[2017-11-15] MEDS: PARoxetine 20 MG TAB PO (20:37)
[2017-11-15] MEDS: PARoxetine 10MG TABLET PO (20:37)
[2017-11-15] MEDS: CYCLOBENZAPRINE 10 MG TAB PO (20:37)
[2017-11-15] MEDS: ATORVASTATIN 20 MG TAB PO (20:37)
[2017-11-15] MEDS: AMITRIPTYLINE 25 MG TAB PO (20:37)
[2017-11-15] MEDS: LATANOPROST 0.005% OPHTH SOLN 2.5 ML OU (20:38)
[2017-11-16 00:08] LABS: BEDSIDE GLUCOSE 231 MG/DL (80-115)
[2017-11-16] MEDS: HumaLOG INSULIN (NovoLOG) PER UNIT SC ×5 (00:22→20:32)
[2017-11-16] MEDS: VANCOMYCIN ORAL SOL 250MG/5ML ORAL SYRINGE PO ×4 (00:22→17:06)
[2017-11-16 05:56] LABS: BASO % 0.3 % (0.0-1.0); EOS # 0.3 10^3/uL (0.0-0.50); EOS % 2.2 % (0.0-3.0); HEMATOCRIT 33.9 % (36.0-47.0); HEMOGLOBIN 10.4 g/dl (12.0-15.5); IMMATURE GRANULOCYTE % 1.8 % (0-3.0); LYMPH # 2.1 10^3/uL (1.5-4.5); MEAN CORPUSCULAR HEMOGLOBIN 28.4 pg (27.0-33.0); MEAN CORPUSCULAR HGB CONC 30.7 g/dl (32.0-36.5); MEAN CORPUSCULAR VOLUME 92.6 fl (80.0-96.0); MONO # 0.9 10^3/uL (0.0-0.8); MONO % 7.9 % (0.0-5.0); NEUTROPHILS # 8.2 10^3/uL (1.8-7.7); NEUTROPHILS % 69.8 % (36.0-66.0); PLATELET COUNT, AUTOMATED 210 10^3/uL (150-450); RED BLOOD COUNT 3.66 10^6/uL (4.00-5.40); RED CELL DISTRIBUTION WIDTH 17.2 % (11.5-14.5); WHITE BLOOD COUNT 11.7 10^3/uL (4.0-10.0)
[2017-11-16 06:23] LABS: ANION GAP 7 MEQ/L (8-16); BLOOD UREA NITROGEN 15 MG/DL (7-18); CALCIUM LEVEL 7.3 MG/DL (8.8-10.2); CARBON DIOXIDE LEVEL 25 MEQ/L (21-32); CHLORIDE LEVEL 107 MEQ/L (98-107); CREATININE FOR GFR 3.63 MG/DL (0.55-1.30); GLOMERULAR FILTRATION RATE 13.6 (>45); GLUCOSE, FASTING 130 MG/DL (70-100); POTASSIUM SERUM 4.1 MEQ/L (3.5-5.1); SODIUM LEVEL 139 MEQ/L (136-145)
[2017-11-16 06:44] LABS: BEDSIDE GLUCOSE 113 MG/DL (80-115)
[2017-11-16] MEDS: HEPARIN SOD (PORCINE) 5000 UNITS/ML VIAL SC ×3 (06:46→20:32)
[2017-11-16] MEDS: ASPIRIN 81 MG CHEW TABLET PO (08:09)
[2017-11-16] MEDS: MULTIVITAMINS/MINERALS THERAP 1 TAB PO (08:09)
[2017-11-16] MEDS: LACTOBACILLUS ACIDOPHILUS CAP (BACID) PO ×3 (08:09→17:06)
[2017-11-16] MEDS: COSOPT OCUMETER PLUS 10ML (DORZOLAMIDE/TIMOLOL) OU ×2 (08:09→20:32)
[2017-11-16] MEDS: FERROUS SULFATE 325MG TAB PO (08:09)
[2017-11-16] MEDS: PREGABALIN 75 MG CAP(LYRICA) PO ×2 (08:09→20:31)
[2017-11-16] MEDS: SANTYL OINT 30GM TOP (08:11)
[2017-11-16 10:34] LABS: BEDSIDE GLUCOSE 186 MG/DL (80-115)
[2017-11-16 10:40] LABS: FERRITIN 1697 NG/ML (8-252); IRON (FE) 39 UG/DL (50-170); PERCENT SATURATION 21.4 % (13.2-45.0); TOTAL IRON BINDING CAPACITY 182 UG/DL (250-450)
[2017-11-16 10:48] LABS: BEDSIDE GLUCOSE 135 MG/DL (80-115)
[2017-11-16 11:55] LABS: BEDSIDE GLUCOSE 161 MG/DL (80-115)
[2017-11-16] MEDS ORDERED: HumaLOG INSULIN (NovoLOG) PER UNIT SC (12:00)
[2017-11-16 16:36] LABS: BEDSIDE GLUCOSE 105 MG/DL (80-115)
[2017-11-16] MEDS: CYCLOBENZAPRINE 10 MG TAB PO (20:31)
[2017-11-16] MEDS: PARoxetine 20 MG TAB PO (20:31)
[2017-11-16] MEDS: PARoxetine 10MG TABLET PO (20:31)
[2017-11-16] MEDS: AMITRIPTYLINE 25 MG TAB PO (20:31)
[2017-11-16] MEDS: ATORVASTATIN 20 MG TAB PO (20:31)
[2017-11-16] MEDS: LATANOPROST 0.005% OPHTH SOLN 2.5 ML OU (20:32)
[2017-11-16] MEDS: LEVEMIR (INSULIN DETEMIR) 1 UNITS/0.01ML SC (20:32)
[2017-11-16 20:58] LABS: BEDSIDE GLUCOSE 183 MG/DL (80-115)
[2017-11-17] MEDS: VANCOMYCIN ORAL SOL 250MG/5ML ORAL SYRINGE PO ×4 (00:23→17:53)
[2017-11-17] MEDS: HEPARIN SOD (PORCINE) 5000 UNITS/ML VIAL SC ×2 (05:48→17:54)
[2017-11-17 06:16] LABS: BASO % 0.3 % (0.0-1.0); EOS # 0.3 10^3/uL (0.0-0.50); EOS % 2.1 % (0.0-3.0); HEMATOCRIT 35.1 % (36.0-47.0); HEMOGLOBIN 10.6 g/dl (12.0-15.5); IMMATURE GRANULOCYTE % 1.7 % (0-3.0); LYMPH # 1.9 10^3/uL (1.5-4.5); LYMPH % 13.9 % (24.0-44.0); MEAN CORPUSCULAR HEMOGLOBIN 27.8 pg (27.0-33.0); MEAN CORPUSCULAR HGB CONC 30.2 g/dl (32.0-36.5); MEAN CORPUSCULAR VOLUME 92.1 fl (80.0-96.0); MONO # 0.9 10^3/uL (0.0-0.8); MONO % 6.5 % (0.0-5.0); NEUTROPHILS % 75.5 % (36.0-66.0); PLATELET COUNT, AUTOMATED 208 10^3/uL (150-450); RED BLOOD COUNT 3.81 10^6/uL (4.00-5.40); RED CELL DISTRIBUTION WIDTH 17.6 % (11.5-14.5); WHITE BLOOD COUNT 13.3 10^3/uL (4.0-10.0)
[2017-11-17 06:31] LABS: ANION GAP 7 MEQ/L (8-16); BLOOD UREA NITROGEN 26 MG/DL (7-18); CALCIUM LEVEL 7.3 MG/DL (8.8-10.2); CARBON DIOXIDE LEVEL 26 MEQ/L (21-32); CHLORIDE LEVEL 107 MEQ/L (98-107); CREATININE FOR GFR 5.01 MG/DL (0.55-1.30); GLOMERULAR FILTRATION RATE 9.4 (>45); GLUCOSE, FASTING 145 MG/DL (70-100); POTASSIUM SERUM 4.7 MEQ/L (3.5-5.1); SODIUM LEVEL 140 MEQ/L (136-145)
[2017-11-17] MEDS: HumaLOG INSULIN (NovoLOG) PER UNIT SC ×4 (07:42→21:00)
[2017-11-17] MEDS: MULTIVITAMINS/MINERALS THERAP 1 TAB PO (07:42)
[2017-11-17] MEDS: PREGABALIN 75 MG CAP(LYRICA) PO ×2 (07:42→22:05)
[2017-11-17] MEDS: COSOPT OCUMETER PLUS 10ML (DORZOLAMIDE/TIMOLOL) OU ×2 (07:43→22:07)
[2017-11-17] MEDS: LACTOBACILLUS ACIDOPHILUS CAP (BACID) PO ×3 (07:43→17:53)
[2017-11-17] MEDS: ASPIRIN 81 MG CHEW TABLET PO (07:43)
[2017-11-17] MEDS ORDERED: DARBEPOETIN 100 MCG/0.5 ML *DIALYSIS* SYRINGE (J0882) IV (08:00)
[2017-11-17] MEDS: HEPARIN 1,000 UNITS/ML 10ML VIAL (FOR RADIOLOGY& DIALYSIS ONLY) XX (10:00)
[2017-11-17] MEDS: HEPARIN 1,000 UNITS/ML 10ML VIAL (FOR RADIOLOGY& DIALYSIS ONLY) IV (10:00)
[2017-11-17] MEDS: SANTYL OINT 30GM TOP (14:23)
[2017-11-17 14:55] LABS: BEDSIDE GLUCOSE 131 MG/DL (80-115)
[2017-11-17 17:51] LABS: BEDSIDE GLUCOSE 196 MG/DL (80-115)
[2017-11-17 20:41] LABS: BEDSIDE GLUCOSE 189 MG/DL (80-115)
[2017-11-17] MEDS: FIDAXOMICIN 200 MG TAB (DIFICID) PO (22:04)
[2017-11-17] MEDS: PARoxetine 20 MG TAB PO (22:04)
[2017-11-17] MEDS: CYCLOBENZAPRINE 10 MG TAB PO (22:04)
[2017-11-17] MEDS: AMITRIPTYLINE 25 MG TAB PO (22:05)
[2017-11-17] MEDS: ATORVASTATIN 20 MG TAB PO (22:05)
[2017-11-17] MEDS: PARoxetine 10MG TABLET PO (22:05)
[2017-11-17] MEDS: LEVEMIR (INSULIN DETEMIR) 1 UNITS/0.01ML SC (22:06)
[2017-11-17] MEDS: LATANOPROST 0.005% OPHTH SOLN 2.5 ML OU (22:06)
[2017-11-18] MEDS: VANCOMYCIN ORAL SOL 250MG/5ML ORAL SYRINGE PO ×2 (00:25→06:07)
[2017-11-18] MEDS: HEPARIN SOD (PORCINE) 5000 UNITS/ML VIAL SC ×2 (06:08→17:30)
[2017-11-18 06:35] LABS: BASO % 0.2 % (0.0-1.0); EOS # 0.2 10^3/uL (0.0-0.50); EOS % 1.4 % (0.0-3.0); HEMATOCRIT 31.9 % (36.0-47.0); HEMOGLOBIN 9.7 g/dl (12.0-15.5); IMMATURE GRANULOCYTE % 1.7 % (0-3.0); LYMPH # 2.2 10^3/uL (1.5-4.5); LYMPH % 13.5 % (24.0-44.0); MEAN CORPUSCULAR HEMOGLOBIN 28.5 pg (27.0-33.0); MEAN CORPUSCULAR HGB CONC 30.4 g/dl (32.0-36.5); MEAN CORPUSCULAR VOLUME 93.8 fl (80.0-96.0); MONO # 0.8 10^3/uL (0.0-0.8); MONO % 5.2 % (0.0-5.0); NEUTROPHILS # 12.5 10^3/uL (1.8-7.7); PLATELET COUNT, AUTOMATED 195 10^3/uL (150-450); RED CELL DISTRIBUTION WIDTH 17.9 % (11.5-14.5); WHITE BLOOD COUNT 16.1 10^3/uL (4.0-10.0)
[2017-11-18 06:52] LABS: ERYTHROCYTE SEDIMENTATION RATE 65 mm/hr (0-30)
[2017-11-18 07:08] LABS: ANION GAP 6 MEQ/L (8-16); BLOOD UREA NITROGEN 13 MG/DL (7-18); CALCIUM LEVEL 7.2 MG/DL (8.8-10.2); CARBON DIOXIDE LEVEL 28 MEQ/L (21-32); CHLORIDE LEVEL 107 MEQ/L (98-107); CREATININE FOR GFR 2.89 MG/DL (0.55-1.30); GLOMERULAR FILTRATION RATE 17.7 (>45); GLUCOSE, FASTING 150 MG/DL (70-100); POTASSIUM SERUM 3.8 MEQ/L (3.5-5.1); SODIUM LEVEL 141 MEQ/L (136-145)
[2017-11-18] MEDS: HumaLOG INSULIN (NovoLOG) PER UNIT SC (07:30)
[2017-11-18] MEDS: LACTOBACILLUS ACIDOPHILUS CAP (BACID) PO ×3 (07:55→17:30)
[2017-11-18] MEDS: ASPIRIN 81 MG CHEW TABLET PO (08:57)
[2017-11-18] MEDS: MULTIVITAMINS/MINERALS THERAP 1 TAB PO (08:57)
[2017-11-18] MEDS: FIDAXOMICIN 200 MG TAB (DIFICID) PO ×2 (08:57→21:25)
[2017-11-18] MEDS: PREGABALIN 75 MG CAP(LYRICA) PO ×2 (08:57→21:25)
[2017-11-18] MEDS: COSOPT OCUMETER PLUS 10ML (DORZOLAMIDE/TIMOLOL) OU ×2 (08:57→21:00)
[2017-11-18] MEDS: SANTYL OINT 30GM TOP (08:58)
[2017-11-18] MEDS: NYSTATIN 500,000 U/5 ML SUSP UDC SS ×3 (13:00→21:25)
[2017-11-18] MEDS ORDERED: HEPARIN 1,000 UNITS/ML 10ML VIAL (FOR RADIOLOGY& DIALYSIS ONLY) As Ordered (14:18)
[2017-11-18] MEDS ORDERED: ISOVUE-300 61% 50ML VIAL (Q9967) As Ordered (14:19)
[2017-11-18 17:43] LABS: BEDSIDE GLUCOSE 119 MG/DL (80-115)
[2017-11-18 20:19] LABS: BEDSIDE GLUCOSE 164 MG/DL (80-115)
[2017-11-18] MEDS: ATORVASTATIN 20 MG TAB PO (21:24)
[2017-11-18] MEDS: CYCLOBENZAPRINE 10 MG TAB PO (21:25)
[2017-11-18] MEDS: LEVEMIR (INSULIN DETEMIR) 1 UNITS/0.01ML SC (21:25)
[2017-11-18] MEDS: AMITRIPTYLINE 25 MG TAB PO (21:25)
[2017-11-18] MEDS: PARoxetine 10MG TABLET PO (21:25)
[2017-11-18] MEDS: PARoxetine 20 MG TAB PO (21:25)
[2017-11-18] MEDS: LATANOPROST 0.005% OPHTH SOLN 2.5 ML OU (21:26)
[2017-11-19 06:10] LABS: BEDSIDE GLUCOSE 124 MG/DL (80-115)
[2017-11-19 07:40] LABS: HEMATOCRIT 37.5 % (36.0-47.0); HEMOGLOBIN 11.1 g/dl (12.0-15.5); MEAN CORPUSCULAR HGB CONC 29.6 g/dl (32.0-36.5); MEAN CORPUSCULAR VOLUME 94.5 fl (80.0-96.0); PLATELET COUNT, AUTOMATED 221 10^3/uL (150-450); RED BLOOD COUNT 3.97 10^6/uL (4.00-5.40); RED CELL DISTRIBUTION WIDTH 18.2 % (11.5-14.5); WHITE BLOOD COUNT 16.1 10^3/uL (4.0-10.0)
[2017-11-19] MEDS: LACTOBACILLUS ACIDOPHILUS CAP (BACID) PO ×3 (08:00→17:47)
[2017-11-19 08:24] LABS: ANION GAP 6 MEQ/L (8-16); BLOOD UREA NITROGEN 25 MG/DL (7-18); CARBON DIOXIDE LEVEL 28 MEQ/L (21-32); CHLORIDE LEVEL 107 MEQ/L (98-107); CREATININE FOR GFR 4.19 MG/DL (0.55-1.30); GLOMERULAR FILTRATION RATE 11.5 (>45); GLUCOSE, FASTING 126 MG/DL (70-100); POTASSIUM SERUM 4.5 MEQ/L (3.5-5.1); SODIUM LEVEL 141 MEQ/L (136-145)
[2017-11-19] MEDS: NYSTATIN 500,000 U/5 ML SUSP UDC SS ×4 (09:00→22:23)
[2017-11-19] MEDS: HEPARIN 1,000 UNITS/ML 10ML VIAL (FOR RADIOLOGY& DIALYSIS ONLY) IV (10:30)
[2017-11-19] MEDS: HEPARIN 1,000 UNITS/ML 10ML VIAL (FOR RADIOLOGY& DIALYSIS ONLY) XX (10:30)
[2017-11-19] MEDS: MULTIVITAMINS/MINERALS THERAP 1 TAB PO (13:10)
[2017-11-19] MEDS: PREGABALIN 75 MG CAP(LYRICA) PO ×2 (13:10→22:24)
[2017-11-19] MEDS: ASPIRIN 81 MG CHEW TABLET PO (13:10)
[2017-11-19] MEDS: FIDAXOMICIN 200 MG TAB (DIFICID) PO ×2 (13:10→22:23)
[2017-11-19] MEDS: COSOPT OCUMETER PLUS 10ML (DORZOLAMIDE/TIMOLOL) OU ×2 (13:11→22:23)
[2017-11-19] MEDS: SANTYL OINT 30GM TOP (13:50)
[2017-11-19 17:38] LABS: BEDSIDE GLUCOSE 134 MG/DL (80-115)
[2017-11-19 21:04] LABS: BEDSIDE GLUCOSE 142 MG/DL (80-115)
[2017-11-19] MEDS: PARoxetine 10MG TABLET PO (22:23)
[2017-11-19] MEDS: LATANOPROST 0.005% OPHTH SOLN 2.5 ML OU (22:23)
[2017-11-19] MEDS: AMITRIPTYLINE 25 MG TAB PO (22:24)
[2017-11-19] MEDS: PARoxetine 20 MG TAB PO (22:24)
[2017-11-19] MEDS: ATORVASTATIN 20 MG TAB PO (22:24)
[2017-11-19] MEDS: CYCLOBENZAPRINE 10 MG TAB PO (22:24)
[2017-11-19] MEDS: LEVEMIR (INSULIN DETEMIR) 1 UNITS/0.01ML SC (22:25)
[2017-11-20 06:06] LABS: BEDSIDE GLUCOSE 87 MG/DL (80-115)
[2017-11-20] MEDS: NS 250 ML IV (08:30)
[2017-11-20] MEDS: ASPIRIN 81 MG CHEW TABLET PO (08:53)
[2017-11-20] MEDS: PREGABALIN 75 MG CAP(LYRICA) PO ×2 (08:53→21:20)
[2017-11-20] MEDS: NYSTATIN 500,000 U/5 ML SUSP UDC SS ×4 (08:54→21:20)
[2017-11-20] MEDS: MULTIVITAMINS/MINERALS THERAP 1 TAB PO (08:54)
[2017-11-20] MEDS: LACTOBACILLUS ACIDOPHILUS CAP (BACID) PO ×3 (08:54→17:50)
[2017-11-20] MEDS: FIDAXOMICIN 200 MG TAB (DIFICID) PO ×2 (08:54→21:18)
[2017-11-20] MEDS: COSOPT OCUMETER PLUS 10ML (DORZOLAMIDE/TIMOLOL) OU ×2 (08:55→22:09)
[2017-11-20 08:56] LABS: HEMATOCRIT 33.3 % (36.0-47.0); HEMOGLOBIN 10.1 g/dl (12.0-15.5); MEAN CORPUSCULAR HEMOGLOBIN 28.2 pg (27.0-33.0); MEAN CORPUSCULAR HGB CONC 30.3 g/dl (32.0-36.5); PLATELET COUNT, AUTOMATED 252 10^3/uL (150-450); RED BLOOD COUNT 3.58 10^6/uL (4.00-5.40); RED CELL DISTRIBUTION WIDTH 18.2 % (11.5-14.5); WHITE BLOOD COUNT 20.3 10^3/uL (4.0-10.0)
[2017-11-20] MEDS: SANTYL OINT 30GM TOP (08:56)
[2017-11-20] MEDS ORDERED: LINEZOLID 600MG TABLET (ZYVOX) PO (09:00)
[2017-11-20 09:23] LABS: ANION GAP 6 MEQ/L (8-16); BLOOD UREA NITROGEN 13 MG/DL (7-18); CALCIUM LEVEL 6.9 MG/DL (8.8-10.2); CARBON DIOXIDE LEVEL 30 MEQ/L (21-32); CHLORIDE LEVEL 105 MEQ/L (98-107); CREATININE FOR GFR 2.54 MG/DL (0.55-1.30); GLOMERULAR FILTRATION RATE 20.5 (>45); GLUCOSE, FASTING 61 MG/DL (70-100); POTASSIUM SERUM 3.7 MEQ/L (3.5-5.1); SODIUM LEVEL 141 MEQ/L (136-145)
[2017-11-20 10:21] LABS: LACTIC ACID SEPSIS PROTOCOL 1.2 MMOL/L (0.4-2.0)
[2017-11-20 11:03] LABS: ABG BASE EXCESS 5.1 (-2.0-2.0); ABG HCO3 30.2 MEQ/L (22.0-26.0); ABG O2 SATURATION 96.3 % (95.0-99.0); ABG PARTIAL PRESSURE CO2 46.8 mmHg (35.0-45.0); ABG PARTIAL PRESSURE O2 77.8 mmHg (75.0-100.0); ABG STANDARD HCO3 29.1 MEQ/L (22.0-26.0); ABG TOTAL CO2 31.6 MEQ/L (23.0-31.0); ABG pH (ARTERIAL) 7.427 UNITS (7.350-7.450)
[2017-11-20] MEDS: SODIUM CHLORIDE 0.9% 1000 ML IV (11:10)
[2017-11-20 11:42] LABS: AMMONIA 13 uMOL/L (<32)
[2017-11-20] MEDS: NS 500 ML IV (13:50)
[2017-11-20] MEDS: LINEZOLID 600 MG in APPROPRIATE DILUENT 1 EA IV ×2 (13:51→23:59)
[2017-11-20 14:03] LABS: APPEARANCE, URINE MANUAL TURBID (CLEAR); COLOR, URINE MANUAL BROWN (YELLOW)
[2017-11-20 14:05] LABS: BILIRUBIN, URINE MANUAL OBSCURED (NEGATIVE); BLOOD URINE MANUAL POSITIVE (NEGATIVE); GLUCOSE, URINE (UA) MANUAL NEGATIVE (NEGATIVE); KETONE, URINE MANUAL OBSCURED mg/dL (NEGATIVE); LEUKOCYTE ESTERASE, URINE MAN POSITIVE (NEGATIVE); MICROSCOPIC INDICATED? MAN YES (NO); NITRITE, URINE MANUAL POSITIVE (NEGATIVE); PROTEIN, URINE MANUAL 2+ mg/dL (NEGATIVE); UROBILINOGEN, URINE MANUAL OBSCURED mg/dl (NORMAL)
[2017-11-20 14:11] LABS: RBC, URINE 15-20 /hpf (0-3); WBC, URINE TNTC /hpf (0-3)
[2017-11-20 14:12] LABS: AMORPHOUS SEDIMENT, URINE SMALL AMOUNT (NEGATIVE); BACTERIA, URINE LARGE AMOUNT; HYALINE CAST, URINE NONE SEEN /lpf (0-1); MICROSCOPIC EXAM PERFORMED; RENAL EPITHELIAL CELLS, URINE SMALL AMOUNT /hpf; SQUAMOUS EPITHELIAL CELL URINE SMALL AMOUNT /hpf (SMALL AMT); TRANSITIONAL EPI CELLS, URINE SMALL AMOUNT /hpf
[2017-11-20 14:25] LABS: BEDSIDE GLUCOSE 79 MG/DL (80-115)
[2017-11-20] MEDS ORDERED: ERTAPENEM SODIUM 0.5 GM in NS 50 ML IV (16:00)
[2017-11-20] MEDS: PIPERACILLIN/TAZOBACTAM SOD 2.25 GM in D5W MINI-BAG PLUS 50 ML IV (17:42)
[2017-11-20] MEDS: LEVEMIR (INSULIN DETEMIR) 1 UNITS/0.01ML SC (20:26)
[2017-11-20] MEDS: PARoxetine 20 MG TAB PO (21:20)
[2017-11-20] MEDS: ATORVASTATIN 20 MG TAB PO (21:21)
[2017-11-20 21:35] LABS: BEDSIDE GLUCOSE 123 MG/DL (80-115)
[2017-11-20] MEDS: LATANOPROST 0.005% OPHTH SOLN 2.5 ML OU (22:09)
[2017-11-20 22:17] LABS: BEDSIDE GLUCOSE 102 MG/DL (80-115)
[2017-11-21] MEDS: PIPERACILLIN/TAZOBACTAM SOD 2.25 GM in D5W MINI-BAG PLUS 50 ML IV ×2 (02:11→15:33)
[2017-11-21] MEDS: HEPARIN SOD (PORCINE) 5000 UNITS/ML VIAL SQ ×3 (05:50→21:07)
[2017-11-21 06:21] LABS: HEMOGLOBIN 9.2 g/dl (12.0-15.5); MEAN CORPUSCULAR HGB CONC 29.7 g/dl (32.0-36.5); MEAN CORPUSCULAR VOLUME 94.5 fl (80.0-96.0); PLATELET COUNT, AUTOMATED 259 10^3/uL (150-450); RED BLOOD COUNT 3.28 10^6/uL (4.00-5.40); RED CELL DISTRIBUTION WIDTH 18.2 % (11.5-14.5); WHITE BLOOD COUNT 22.7 10^3/uL (4.0-10.0)
[2017-11-21 07:11] LABS: ANION GAP 7 MEQ/L (8-16); BLOOD UREA NITROGEN 19 MG/DL (7-18); CALCIUM LEVEL 6.5 MG/DL (8.8-10.2); CARBON DIOXIDE LEVEL 27 MEQ/L (21-32); CHLORIDE LEVEL 104 MEQ/L (98-107); CREATININE FOR GFR 3.28 MG/DL (0.55-1.30); GLOMERULAR FILTRATION RATE 15.3 (>45); GLUCOSE, FASTING 123 MG/DL (70-100); MAGNESIUM LEVEL 1.9 MG/DL (1.8-2.4); SODIUM LEVEL 138 MEQ/L (136-145)
[2017-11-21] MEDS: MULTIVITAMINS/MINERALS THERAP 1 TAB PO (08:52)
[2017-11-21] MEDS: COSOPT OCUMETER PLUS 10ML (DORZOLAMIDE/TIMOLOL) OU ×2 (08:52→20:09)
[2017-11-21] MEDS: NYSTATIN 500,000 U/5 ML SUSP UDC SS ×4 (08:52→20:08)
[2017-11-21] MEDS: ASPIRIN 81 MG CHEW TABLET PO (08:52)
[2017-11-21] MEDS: LACTOBACILLUS ACIDOPHILUS CAP (BACID) PO ×3 (08:52→18:00)
[2017-11-21] MEDS: FIDAXOMICIN 200 MG TAB (DIFICID) PO ×2 (08:52→20:09)
[2017-11-21] MEDS: SANTYL OINT 30GM TOP (08:54)
[2017-11-21] MEDS: PREGABALIN 75 MG CAP(LYRICA) PO ×2 (09:00→20:09)
[2017-11-21] MEDS: LINEZOLID 600 MG in APPROPRIATE DILUENT 1 EA IV ×2 (13:21→23:04)
[2017-11-21 14:11] LABS: BEDSIDE GLUCOSE 81 MG/DL (80-115)
[2017-11-21] MEDS: HEPARIN 1,000 UNITS/ML 10ML VIAL (FOR RADIOLOGY& DIALYSIS ONLY) IV (15:15)
[2017-11-21] MEDS: HEPARIN 1,000 UNITS/ML 10ML VIAL (FOR RADIOLOGY& DIALYSIS ONLY) XX (15:15)
[2017-11-21] MEDS: D5W/0.45% SODIUM CHLORIDE 1,000 ML IV (15:33)
[2017-11-21] MEDS: LIDOCAINE 1% MDV 20ML VIAL As Ordered (16:23)
[2017-11-21] MEDS: BUPIVACAINE HCL 0.5% 10 ML VIAL As Ordered (16:23)
[2017-11-21] MEDS ORDERED: LIDOCAINE 2% INJ 100 MG/5 ML SDV (FOR ANES.) As Ordered (16:26)
[2017-11-21] MEDS ORDERED: MIDAZOLAM INJ 2 MG/2 ML VIAL (J2250) As Ordered (16:26)
[2017-11-21] MEDS ORDERED: PROPOFOL 200 MG/20 ML VIAL As Ordered (16:26)
[2017-11-21] MEDS ORDERED: fentaNYL 100 MCG/2 ML INJECTION (J3010) As Ordered (16:27)
[2017-11-21 18:19] LABS: BEDSIDE GLUCOSE 119 MG/DL (80-115)
[2017-11-21] MEDS ORDERED: PHENYLephrine HCL 500 MCG/5 ML (100MCG/ML) SYRINGE (J2370) As Ordered (18:22)
[2017-11-21] MEDS: LR 1,000 ML IV (18:45)
[2017-11-21] MEDS ORDERED: PERCOCET 5MG/325MG TAB PO (18:45)
[2017-11-21] MEDS ORDERED: ONDANSETRON 4MG/2ML VIAL (J2405) IV (18:45)
[2017-11-21] MEDS ORDERED: fentaNYL 100 MCG/2 ML INJECTION (J3010) IV (18:45)
[2017-11-21] MEDS: ATORVASTATIN 20 MG TAB PO (20:08)
[2017-11-21] MEDS: PARoxetine 20 MG TAB PO (20:09)
[2017-11-21] MEDS: LATANOPROST 0.005% OPHTH SOLN 2.5 ML OU (20:09)
[2017-11-21] MEDS: NYSTATIN 100,000 UNITS/GM TOPICAL PWD 15 GM TOP (20:09)
[2017-11-21] MEDS ORDERED: ePHEDrine SULFATE 25 MG/5 ML(5MG/ML) SYRINGE (20:16)
[2017-11-21] MEDS: ACETAMINOPHEN 650MG ER TAB (TYLENOL ARTHRITIS) PO (20:33)
[2017-11-21 21:04] LABS: BEDSIDE GLUCOSE 159 MG/DL (80-115)
[2017-11-22] MEDS: PIPERACILLIN/TAZOBACTAM SOD 2.25 GM in D5W MINI-BAG PLUS 50 ML IV ×2 (01:13→15:35)
[2017-11-22] MEDS: HEPARIN SOD (PORCINE) 5000 UNITS/ML VIAL SQ ×3 (05:05→21:09)
[2017-11-22 05:27] LABS: BASO % 0.2 % (0.0-1.0); EOS # 0.3 10^3/uL (0.0-0.50); EOS % 1.2 % (0.0-3.0); HEMATOCRIT 28.9 % (36.0-47.0); HEMOGLOBIN 8.5 g/dl (12.0-15.5); IMMATURE GRANULOCYTE % 0.6 % (0-3.0); LYMPH # 1.1 10^3/uL (1.5-4.5); LYMPH % 5.3 % (24.0-44.0); MEAN CORPUSCULAR HEMOGLOBIN 28.4 pg (27.0-33.0); MEAN CORPUSCULAR HGB CONC 29.4 g/dl (32.0-36.5); MEAN CORPUSCULAR VOLUME 96.7 fl (80.0-96.0); MONO # 0.6 10^3/uL (0.0-0.8); MONO % 2.9 % (0.0-5.0); NEUTROPHILS # 18.9 10^3/uL (1.8-7.7); NEUTROPHILS % 89.8 % (36.0-66.0); PLATELET COUNT, AUTOMATED 242 10^3/uL (150-450); RED BLOOD COUNT 2.99 10^6/uL (4.00-5.40); RED CELL DISTRIBUTION WIDTH 18.6 % (11.5-14.5); WHITE BLOOD COUNT 21.1 10^3/uL (4.0-10.0)
[2017-11-22 05:38] LABS: ALBUMIN 0.9 GM/DL (3.2-5.2); ALBUMIN/GLOBULIN RATIO 0.27 (1.00-1.93); ALKALINE PHOSPHATASE 283 U/L (45-117); ALT/SGPT 23 U/L (12-78); ANION GAP 6 MEQ/L (8-16); AST/SGOT 35 U/L (7-37); BILIRUBIN,TOTAL 0.2 MG/DL (0.2-1.0); BLOOD UREA NITROGEN 8 MG/DL (7-18); CALCIUM LEVEL 6.5 MG/DL (8.8-10.2); CARBON DIOXIDE LEVEL 30 MEQ/L (21-32); CHLORIDE LEVEL 102 MEQ/L (98-107); CREATININE FOR GFR 1.97 MG/DL (0.55-1.30); GLOMERULAR FILTRATION RATE 27.5 (>45); GLUCOSE, FASTING 208 MG/DL (70-100); POTASSIUM SERUM 3.9 MEQ/L (3.5-5.1); SODIUM LEVEL 138 MEQ/L (136-145); TOTAL PROTEIN 4.2 GM/DL (6.4-8.2)
[2017-11-22] MEDS: NS 500 ML IV ×2 (09:30→17:30)
[2017-11-22] MEDS: FIDAXOMICIN 200 MG TAB (DIFICID) PO ×2 (09:31→20:09)
[2017-11-22] MEDS: PREGABALIN 75 MG CAP(LYRICA) PO (09:32)
[2017-11-22] MEDS: MULTIVITAMINS/MINERALS THERAP 1 TAB PO (09:32)
[2017-11-22] MEDS: ASPIRIN 81 MG CHEW TABLET PO (09:32)
[2017-11-22] MEDS: NYSTATIN 500,000 U/5 ML SUSP UDC SS ×4 (09:32→20:09)
[2017-11-22] MEDS: COSOPT OCUMETER PLUS 10ML (DORZOLAMIDE/TIMOLOL) OU ×2 (09:32→20:09)
[2017-11-22] MEDS: LACTOBACILLUS ACIDOPHILUS CAP (BACID) PO ×3 (09:32→18:11)
[2017-11-22] MEDS: SANTYL OINT 30GM TOP (09:34)
[2017-11-22 09:38] LABS: MAGNESIUM LEVEL 1.8 MG/DL (1.8-2.4)
[2017-11-22 11:20] LABS: CENTRAL VEN O2 SATURATION 65.7 %
[2017-11-22 11:29] LABS: TYPE AND SCREEN 1
[2017-11-22 12:32] LABS: BEDSIDE GLUCOSE 230 MG/DL (80-115)
[2017-11-22] MEDS: LINEZOLID 600 MG in APPROPRIATE DILUENT 1 EA IV ×2 (12:35→23:07)
[2017-11-22] MEDS: D5W/0.9% SODIUM CHLORIDE 1,000 ML IV (12:36)
[2017-11-22] MEDS: SODIUM CHLORIDE 0.9% 1000 ML IV (14:30)
[2017-11-22] MEDS ORDERED: SODIUM CHLORIDE 0.9% INJ 10 ML SYR IV (15:45)
[2017-11-22] MEDS ORDERED: GLUCOSE 4 GM CHEW TABLET PO (16:30)
[2017-11-22] MEDS ORDERED: DEXTROSE 50% 50 ML SYRINGE IV (16:30)
[2017-11-22] MEDS ORDERED: GLUCAGON FOR INJ 1 MG VIAL (J1610) SC (16:30)
[2017-11-22] MEDS ORDERED: NOREPINEPHRINE BITARTRATE 8 MG in D5W 492 ML IV (16:45)
[2017-11-22 17:03] LABS: TYPE AND SCREEN 1
[2017-11-22] MEDS: NOREPINEPHRINE BITARTRATE 8 MG in D5W 492 ML IV ×2 (17:24→20:13)
[2017-11-22] MEDS: HumaLOG INSULIN (NovoLOG) PER UNIT SC ×2 (18:12→23:14)
[2017-11-22 19:08] LABS: BEDSIDE GLUCOSE 243 MG/DL (80-115)
[2017-11-22] MEDS: LATANOPROST 0.005% OPHTH SOLN 2.5 ML OU (20:09)
[2017-11-22] MEDS: SODIUM CHLORIDE 0.9% INJ 10 ML SYR IV (21:10)
[2017-11-22 23:18] LABS: BEDSIDE GLUCOSE 209 MG/DL (80-115)
[2017-11-23] MEDS: PIPERACILLIN/TAZOBACTAM SOD 2.25 GM in D5W MINI-BAG PLUS 50 ML IV ×2 (01:12→15:43)
[2017-11-23] MEDS: D5W/0.9% SODIUM CHLORIDE 1,000 ML IV ×2 (04:11→12:17)
[2017-11-23 04:13] LABS: ABG BASE EXCESS -3.1 (-2.0-2.0); ABG HCO3 26.2 MEQ/L (22.0-26.0); ABG O2 SATURATION 99.4 % (95.0-99.0); ABG PARTIAL PRESSURE O2 165.5 mmHg (75.0-100.0); ABG STANDARD HCO3 21.9 MEQ/L (22.0-26.0); ABG TOTAL CO2 28.5 MEQ/L (23.0-31.0); BASO # 0.1 10^3/uL (0.0-0.2); BASO % 0.2 % (0.0-1.0); EOS # 0.5 10^3/uL (0.0-0.50); EOS % 2.5 % (0.0-3.0); HEMATOCRIT 32.1 % (36.0-47.0); HEMOGLOBIN 9.2 g/dl (12.0-15.5); IMMATURE GRANULOCYTE % 0.8 % (0-3.0); LYMPH # 1.4 10^3/uL (1.5-4.5); LYMPH % 6.4 % (24.0-44.0); MEAN CORPUSCULAR HEMOGLOBIN 28.1 pg (27.0-33.0); MEAN CORPUSCULAR HGB CONC 28.7 g/dl (32.0-36.5); MEAN CORPUSCULAR VOLUME 98.2 fl (80.0-96.0); MONO # 0.8 10^3/uL (0.0-0.8); MONO % 3.8 % (0.0-5.0); NEUTROPHILS # 18.8 10^3/uL (1.8-7.7); NEUTROPHILS % 86.3 % (36.0-66.0); PLATELET COUNT, AUTOMATED 322 10^3/uL (150-450); RED BLOOD COUNT 3.27 10^6/uL (4.00-5.40); RED CELL DISTRIBUTION WIDTH 18.3 % (11.5-14.5); WHITE BLOOD COUNT 21.8 10^3/uL (4.0-10.0)
[2017-11-23 04:17] LABS: ABG PARTIAL PRESSURE CO2 72.7 mmHg (35.0-45.0); ABG pH (ARTERIAL) 7.175 UNITS (7.350-7.450)
[2017-11-23 04:35] LABS: BEDSIDE GLUCOSE 171 MG/DL (80-115)
[2017-11-23 04:52] LABS: ALBUMIN 1.5 GM/DL (3.2-5.2); ALBUMIN/GLOBULIN RATIO 0.44 (1.00-1.93); ALKALINE PHOSPHATASE 299 U/L (45-117); ALT/SGPT 25 U/L (12-78); ANION GAP 6 MEQ/L (8-16); AST/SGOT 32 U/L (7-37); BILIRUBIN,TOTAL 0.3 MG/DL (0.2-1.0); BLOOD UREA NITROGEN 11 MG/DL (7-18); CALCIUM LEVEL 6.6 MG/DL (8.8-10.2); CARBON DIOXIDE LEVEL 27 MEQ/L (21-32); CHLORIDE LEVEL 103 MEQ/L (98-107); CREATININE FOR GFR 2.49 MG/DL (0.55-1.30); GLUCOSE, FASTING 147 MG/DL (70-100); POTASSIUM SERUM 4.1 MEQ/L (3.5-5.1); SODIUM LEVEL 136 MEQ/L (136-145); TOTAL PROTEIN 4.9 GM/DL (6.4-8.2)
[2017-11-23] MEDS: HEPARIN SOD (PORCINE) 5000 UNITS/ML VIAL SQ ×3 (05:06→21:30)
[2017-11-23] MEDS: SODIUM CHLORIDE 0.9% INJ 10 ML SYR IV ×3 (05:06→21:32)
[2017-11-23] MEDS: HumaLOG INSULIN (NovoLOG) PER UNIT SC ×3 (05:07→18:03)
[2017-11-23 05:48] LABS: ABG BASE EXCESS -4.3 (-2.0-2.0); ABG HCO3 21.6 MEQ/L (22.0-26.0); ABG O2 SATURATION 98.4 % (95.0-99.0); ABG PARTIAL PRESSURE O2 106.9 mmHg (75.0-100.0); ABG STANDARD HCO3 20.9 MEQ/L (22.0-26.0); ABG TOTAL CO2 22.9 MEQ/L (23.0-31.0); ABG pH (ARTERIAL) 7.319 UNITS (7.350-7.450)
[2017-11-23 06:32] LABS: LACTIC ACID SEPSIS PROTOCOL 1.4 MMOL/L (0.4-2.0)
[2017-11-23] MEDS: LACTOBACILLUS ACIDOPHILUS CAP (BACID) PO ×3 (08:00→17:01)
[2017-11-23] MEDS: FIDAXOMICIN 200 MG TAB (DIFICID) PO ×2 (09:00→09:04)
[2017-11-23] MEDS: MULTIVITAMINS/MINERALS THERAP 1 TAB PO (09:00)
[2017-11-23] MEDS: ASPIRIN 81 MG CHEW TABLET PO (09:00)
[2017-11-23] MEDS: SANTYL OINT 30GM TOP (09:04)
[2017-11-23] MEDS: NYSTATIN 500,000 U/5 ML SUSP UDC SS ×4 (09:04→21:00)
[2017-11-23] MEDS: COSOPT OCUMETER PLUS 10ML (DORZOLAMIDE/TIMOLOL) OU ×2 (09:04→21:29)
[2017-11-23 12:06] LABS: BEDSIDE GLUCOSE 189 MG/DL (80-115)
[2017-11-23] MEDS: LINEZOLID 600 MG in APPROPRIATE DILUENT 1 EA IV (12:16)
[2017-11-23] MEDS: NS 500 ML IV (12:45)
[2017-11-23] MEDS ORDERED: metroNIDAZOLE 500 MG in APPROPRIATE DILUENT 1 EA IV (13:00)
[2017-11-23 17:39] LABS: BEDSIDE GLUCOSE 197 MG/DL (80-115)
[2017-11-23] MEDS: NOREPINEPHRINE BITARTRATE 8 MG in D5W 492 ML IV (19:00)
[2017-11-23] MEDS: LATANOPROST 0.005% OPHTH SOLN 2.5 ML OU (21:29)
[2017-11-23] MEDS: FIDAXOMICIN 200 MG TAB (DIFICID) PEG (21:30)
[2017-11-24] MEDS: HumaLOG INSULIN (NovoLOG) PER UNIT SC ×5 (00:35→23:42)
[2017-11-24] MEDS: LINEZOLID 600 MG in APPROPRIATE DILUENT 1 EA IV ×3 (00:35→23:42)
[2017-11-24 00:40] LABS: BEDSIDE GLUCOSE 184 MG/DL (80-115)
[2017-11-24] MEDS: D5W/0.9% SODIUM CHLORIDE 1,000 ML IV ×2 (00:45→10:28)
[2017-11-24] MEDS: PIPERACILLIN/TAZOBACTAM SOD 2.25 GM in D5W MINI-BAG PLUS 50 ML IV ×2 (02:37→14:05)
[2017-11-24] MEDS: HEPARIN SOD (PORCINE) 5000 UNITS/ML VIAL SQ ×3 (05:25→20:16)
[2017-11-24] MEDS: SODIUM CHLORIDE 0.9% INJ 10 ML SYR IV ×3 (05:25→20:34)
[2017-11-24 05:26] LABS: BEDSIDE GLUCOSE 182 MG/DL (80-115)
[2017-11-24 05:32] LABS: BASO # 0.1 10^3/uL (0.0-0.2); BASO % 0.3 % (0.0-1.0); EOS # 0.2 10^3/uL (0.0-0.50); EOS % 1.1 % (0.0-3.0); HEMATOCRIT 28.2 % (36.0-47.0); HEMOGLOBIN 8.4 g/dl (12.0-15.5); IMMATURE GRANULOCYTE % 0.9 % (0-3.0); LYMPH # 1.3 10^3/uL (1.5-4.5); LYMPH % 8.7 % (24.0-44.0); MEAN CORPUSCULAR HEMOGLOBIN 28.6 pg (27.0-33.0); MEAN CORPUSCULAR HGB CONC 29.8 g/dl (32.0-36.5); MEAN CORPUSCULAR VOLUME 95.9 fl (80.0-96.0); MONO # 0.5 10^3/uL (0.0-0.8); MONO % 3.1 % (0.0-5.0); NEUTROPHILS # 12.9 10^3/uL (1.8-7.7); NEUTROPHILS % 85.9 % (36.0-66.0); PLATELET COUNT, AUTOMATED 255 10^3/uL (150-450); RED BLOOD COUNT 2.94 10^6/uL (4.00-5.40); RED CELL DISTRIBUTION WIDTH 18.1 % (11.5-14.5)
[2017-11-24 05:48] LABS: ANION GAP 7 MEQ/L (8-16); BLOOD UREA NITROGEN 15 MG/DL (7-18); CARBON DIOXIDE LEVEL 25 MEQ/L (21-32); CHLORIDE LEVEL 104 MEQ/L (98-107); CREATININE FOR GFR 3.23 MG/DL (0.55-1.30); GLOMERULAR FILTRATION RATE 15.6 (>45); GLUCOSE, FASTING 152 MG/DL (70-100); POTASSIUM SERUM 3.7 MEQ/L (3.5-5.1); SODIUM LEVEL 136 MEQ/L (136-145)
[2017-11-24] MEDS: NYSTATIN 500,000 U/5 ML SUSP UDC SS ×4 (08:53→20:16)
[2017-11-24] MEDS: MULTIVITAMINS/MINERALS THERAP 1 TAB PO (08:53)
[2017-11-24] MEDS: FIDAXOMICIN 200 MG TAB (DIFICID) PEG ×2 (08:53→20:16)
[2017-11-24] MEDS: LACTOBACILLUS ACIDOPHILUS CAP (BACID) PO ×3 (08:53→17:52)
[2017-11-24] MEDS: ASPIRIN 81 MG CHEW TABLET PO (08:53)
[2017-11-24 12:01] LABS: BEDSIDE GLUCOSE 132 MG/DL (80-115)
[2017-11-24] MEDS: NYSTATIN 100,000 UNITS/GM TOPICAL PWD 15 GM TOP (15:02)
[2017-11-24] MEDS: COSOPT OCUMETER PLUS 10ML (DORZOLAMIDE/TIMOLOL) OU ×2 (15:02→20:16)
[2017-11-24] MEDS: SANTYL OINT 30GM TOP (15:02)
[2017-11-24 17:49] LABS: BEDSIDE GLUCOSE 135 MG/DL (80-115)
[2017-11-24] MEDS: NOREPINEPHRINE BITARTRATE 8 MG in D5W 492 ML IV (18:02)
[2017-11-24] MEDS: LATANOPROST 0.005% OPHTH SOLN 2.5 ML OU (20:15)
[2017-11-24 21:39] LABS: BEDSIDE GLUCOSE 170 MG/DL (80-115)
[2017-11-24 23:45] LABS: BEDSIDE GLUCOSE 176 MG/DL (80-115)
[2017-11-25] MEDS: D5W/0.9% SODIUM CHLORIDE 1,000 ML IV (01:28)
[2017-11-25] MEDS: PIPERACILLIN/TAZOBACTAM SOD 2.25 GM in D5W MINI-BAG PLUS 50 ML IV (03:52)
[2017-11-25] MEDS: HumaLOG INSULIN (NovoLOG) PER UNIT SC (05:54)
[2017-11-25] MEDS: SODIUM CHLORIDE 0.9% INJ 10 ML SYR IV ×3 (05:55→21:45)
[2017-11-25] MEDS: HEPARIN SOD (PORCINE) 5000 UNITS/ML VIAL SQ (05:55)
[2017-11-25 06:18] LABS: BEDSIDE GLUCOSE 199 MG/DL (80-115)
[2017-11-25] MEDS: LACTOBACILLUS ACIDOPHILUS CAP (BACID) PO (07:14)
[2017-11-25 07:33] LABS: HEMATOCRIT 28.2 % (36.0-47.0); HEMOGLOBIN 8.4 g/dl (12.0-15.5); MEAN CORPUSCULAR HEMOGLOBIN 28.5 pg (27.0-33.0); MEAN CORPUSCULAR HGB CONC 29.8 g/dl (32.0-36.5); MEAN CORPUSCULAR VOLUME 95.6 fl (80.0-96.0); PLATELET COUNT, AUTOMATED 235 10^3/uL (150-450); RED BLOOD COUNT 2.95 10^6/uL (4.00-5.40); RED CELL DISTRIBUTION WIDTH 18.1 % (11.5-14.5); WHITE BLOOD COUNT 12.3 10^3/uL (4.0-10.0)
[2017-11-25 07:53] LABS: ANION GAP 8 MEQ/L (8-16); BLOOD UREA NITROGEN 21 MG/DL (7-18); CARBON DIOXIDE LEVEL 23 MEQ/L (21-32); CHLORIDE LEVEL 104 MEQ/L (98-107); CREATININE FOR GFR 3.69 MG/DL (0.55-1.30); GLOMERULAR FILTRATION RATE 13.3 (>45); GLUCOSE, FASTING 155 MG/DL (70-100); POTASSIUM SERUM 3.5 MEQ/L (3.5-5.1); SODIUM LEVEL 135 MEQ/L (136-145)
[2017-11-25] MEDS: SANTYL OINT 30GM TOP (08:00)
[2017-11-25] MEDS ORDERED: LORazepam 2 MG/ML VIAL (J2060) IV (10:30)
[2017-11-26] MEDS: SODIUM CHLORIDE 0.9% INJ 10 ML SYR IV ×3 (05:16→22:00)
[2017-11-27] MEDS: SODIUM CHLORIDE 0.9% INJ 10 ML SYR IV ×3 (05:53→23:34)
[2017-11-27] MEDS: MORPHINE 4 MG/ML 1ML VIAL/SYRINGE (J2270) IV ×2 (07:44→12:18)
[2017-11-28] MEDS: MORPHINE 4 MG/ML 1ML VIAL/SYRINGE (J2270) IV (00:42)
[2017-11-28] MEDS: SODIUM CHLORIDE 0.9% INJ 10 ML SYR IV ×3 (05:39→22:14)
[2017-11-29] MEDS: SODIUM CHLORIDE 0.9% INJ 10 ML SYR IV ×3 (06:43→21:53)
[2017-11-29] MEDS: MORPHINE 4 MG/ML 1ML VIAL/SYRINGE (J2270) IV (08:46)
[2017-11-30] MEDS: SODIUM CHLORIDE 0.9% INJ 10 ML SYR IV ×3 (06:15→21:27)
[2017-12-01] MEDS ORDERED: FLEET ENEMA PR (00:15)
[2017-12-01] MEDS: SODIUM CHLORIDE 0.9% INJ 10 ML SYR IV ×3 (05:42→22:00)
[2017-12-02] MEDS: SODIUM CHLORIDE 0.9% INJ 10 ML SYR IV ×3 (05:56→22:00)
[2017-12-02] MEDS: MORPHINE 10MG/0.5ML ORAL CONCENTRATE SOLUTION U/D SL (06:09)
[2017-12-02] MEDS: SCOPOLAMINE 1MG TRANSDERMAL PATCH TOP (22:26)
[2017-12-03] MEDS: MORPHINE 10MG/0.5ML ORAL CONCENTRATE SOLUTION U/D SL ×2 (00:14→08:23)
[2017-12-03] MEDS: HYOSCYAMINE SULFATE 0.125 MG SUBL TABLET PO ×2 (02:59→08:23)
[2017-12-03] MEDS: SODIUM CHLORIDE 0.9% INJ 10 ML SYR IV (06:00)
== END 2017-12-03 09:45 | disposition expired | DRG 356 ==
LOC: M MSPAV 11-25 15:38 → M ICU 11-20 11:40 → M ED 16:43 → M ED INP 21:05 → M MS5PR 23:39
PROC: 0Y6P0Z2 Detachment at Right 1st Toe, Mid, Open Approach (ICD-10-PCS; principal; 2017-11-21 09:37)
PROC: 047K3ZZ Dilation of Right Femoral Artery, Percutaneous Approach (ICD-10-PCS; 2017-11-21 16:48)
PROC: 047M3ZZ Dilation of Right Popliteal Artery, Percutaneous Approach (ICD-10-PCS; 2017-11-21 16:48)
PROC: B41FYZZ Fluoroscopy of Right Lower Extremity Arteries using Other Contrast (ICD-10-PCS; 2017-11-21 16:48)
DX: A04.71 Enterocolitis due to Clostridium difficile, recurrent (principal); N18.6 End stage renal disease; A41.9 Sepsis, unspecified organism; R65.21 Severe sepsis with septic shock; E43 Unspecified severe protein-calorie malnutrition; J96.02 Acute respiratory failure with hypercapnia; G93.41 Metabolic encephalopathy; I50.32 Chronic diastolic (congestive) heart failure; I13.2 Hypertensive heart and chronic kidney disease with heart failure and with stage 5 chronic kidney disease, or end stage renal disease; E11.52 Type 2 diabetes mellitus with diabetic peripheral angiopathy with gangrene; N39.0 Urinary tract infection, site not specified; L97.219 Non-pressure chronic ulcer of right calf with unspecified severity; N25.81 Secondary hyperparathyroidism of renal origin; I70.261 Atherosclerosis of native arteries of extremities with gangrene, right leg; L89.152 Pressure ulcer of sacral region, stage 2; E11.621 Type 2 diabetes mellitus with foot ulcer; Z51.5 Encounter for palliative care; Z79.82 Long term (current) use of aspirin; Z79.899 Other long term (current) drug therapy; I25.10 Atherosclerotic heart disease of native coronary artery without angina pectoris; F32.9 Major depressive disorder, single episode, unspecified; E87.6 Hypokalemia; E66.9 Obesity, unspecified; E83.39 Other disorders of phosphorus metabolism; D63.1 Anemia in chronic kidney disease; I70.232 Atherosclerosis of native arteries of right leg with ulceration of calf; I70.235 Atherosclerosis of native arteries of right leg with ulceration of other part of foot; L97.519 Non-pressure chronic ulcer of other part of right foot with unspecified severity; Z66 Do not resuscitate